=== PATIENT | male | born 1945 | race Caucasian/White ===

== ENCOUNTER 2018-01-18 07:33 | Day surgery (SDC) | payer MEDICARE, MEDICAID ==
[2018-01-18] MEDS ORDERED: GLUCAGON,HUMAN RECOMB 1 MG INJ IV ONE (08:46)
--- NOTE | 2018-01-18 08:50 | ER Document Report ---
ED ENT - General Chief Complaint: Difficulty Swallowing Stated Complaint: THROAT PAIN Time Seen by Provider: 01/18/18 08:05 Notes: This is a 72-year-old male that presents to the emergency department for evaluation of food sensation. Patient states that he was eating a turkey stick last night. Has a piece of meat stuck in his throat. Cannot seem to eat or drink anything. Nothing makes it better or worse. Had never had this happen before. TRAVEL OUTSIDE OF THE [place] IN LAST 30 DAYS: No - HPI Onset: Yesterday Onset/Duration: Gradual Quality of pain: Achy Severity: Moderate Pain Level: 2 - Related Data Allergies/Adverse Reactions: No Known Allergies Allergy (Verified 01/18/18 07:37) Past Medical History - General Information source: Patient - Social History Smoking Status: Former Smoker Cigarette use (# per day): No Frequency of alcohol use: Occasional Drug Abuse: Marijuana Lives with: Family Family History: Reviewed & Not Pertinent Patient has suicidal ideation: No Patient has homicidal ideation: No - Past Medical History Cardiac Medical History: Reports: Hx Hypercholesterolemia, Hx Hypertension Pulmonary Medical History: Reports: Hx Asthma, Hx COPD Renal/ Medical History: Denies: Hx Peritoneal Dialysis Review of Systems - Review of Systems Notes: Constitutional: denies: Chills, Diaphoresis, Fever, Malaise, Weakness EENT: denies: Eye discharge, Blurred vision, Tearing, Double vision, Nose congestion, Nose discharge, Throat swelling, Mouth pain. Does complain of food sensation stuck in his throat. Cardiovascular: denies: Palpitations, Heart racing, Orthopnea, Dyspnea, Chest pain Respiratory: denies: Cough, Hurts to breathe, Wheezing, Shortness of breath Gastrointestinal: denies: Abdominal pain, Diarrhea, Nausea, Vomiting, Black stools, bright red blood in stool Genitourinary: denies: Burning, Dysuria, Discharge, Frequency, Flank pain, Hematuria Musculoskeletal: denies: Joint pain, Joint swelling, Muscle pain, Muscle stiffness, back pain Hematologic/Lymphatic: denies: Anemia, Easy bleeding, Easy bruising, Blood clots Neurological/Psychological: denies: Confusion, Dementia, Depression, Loss of consciousness Skin: No lesions, no masses, no skin breakdown, no abscesses Physical Exam - Vital signs Vitals: Temp Pulse Resp BP Pulse Ox 97.8 F 91 14 166/95 H 98 01/18/18 07:38 01/18/18 07:38 01/18/18 07:38 01/18/18 07:38 01/18/18 07:38 Interpretation: Normal - General General appearance: Appears well, Alert - HEENT Head: Normocephalic, Atraumatic Eyes: Normal Pupils: PERRL - Respiratory Respiratory status: No respiratory distress Chest status: Nontender Breath sounds: Normal Chest palpation: Normal - Cardiovascular Rhythm: Regular Heart sounds: Normal auscultation Murmur: No - Abdominal Inspection: Normal Distension: No distension Bowel sounds: Normal Tenderness: Nontender Organomegaly: No organomegaly - Back Back: Normal, Nontender - Extremities General upper extremity: Normal inspection, Nontender, Normal color, Normal ROM , Normal temperature General lower extremity: Normal inspection, Nontender, Normal color, Normal ROM , Normal temperature, Normal weight bearing. No: Obey's sign - Neurological Neuro grossly intact: Yes Cognition: Normal Orientation: AAOx4 [place] Coma Scale Eye Opening: Spontaneous [place] Coma Scale Verbal: Oriented [place] Coma Scale Motor: Obeys Commands Codey Coma Scale Total: 15 Speech: Normal Motor strength normal: LUE, RUE, LLE, RLE Sensory: Normal - Psychological Associated symptoms: Normal affect, Normal mood - Skin Skin Temperature: Warm Skin Moisture: Dry Skin Color: Normal Course - Re-evaluation Re-evalutation: 01/18/18 08:49 At this time will get chest x-ray. Will give IV glucagon to see if this helps. Anticipate it will not. Will then call surgery for possible endoscopy. 01/18/18 09:50 No results from glucagon. Unable to swallow. Will consult with GI. 01/18/18 09:52 Dr. Yap with surgery has been consulted. He will evaluate patient. 01/18/18 11:48 01/18/18 12:02 Patient to endoscopy suite at this time - Vital Signs Vital signs: Temp Pulse Resp BP Pulse Ox 97.8 F 98 20 194/110 H 98 01/18/18 07:38 01/18/18 09:36 01/18/18 09:36 01/18/18 09:36 01/18/18 09:36 Discharge - Discharge Clinical Impression: Esophageal obstruction due to food impaction Condition: Good Unit Admitted: OR Instructions: Esophageal Foreign Object Removal ([facility]) Referrals: ELSA YAP MD [ACTIVE STAFF] - Follow up as needed
--- NOTE | 2018-01-18 09:53 | RADIOLOGY REPORT (SQ) ---
EXAM DESCRIPTION: CHEST 2 VIEWS COMPLETED DATE/TIME: 01/18/2018 8:57 am REASON FOR STUDY: food stuck in esophagus COMPARISON: None. EXAM PARAMETERS: NUMBER OF VIEWS: two views TECHNIQUE: Digital Frontal and Lateral radiographic views of the chest acquired. RADIATION DOSE: NA LIMITATIONS: none FINDINGS: LUNGS AND PLEURA: No opacities, masses or pneumothorax. No pleural effusion. MEDIASTINUM AND HILAR STRUCTURES: No masses or contour abnormalities. HEART AND VASCULAR STRUCTURES: Heart normal size. No evidence for failure. BONES: No acute findings. HARDWARE: None in the chest. OTHER: No other significant finding. IMPRESSION: No evidence of acute intrathoracic process. No radiopaque foreign body. TECHNICAL DOCUMENTATION: JOB ID: [id number] [employer]- All Rights Reserved Reading location - IP/workstation name: [email or web address]
[2018-01-18] MEDS ORDERED: ONDANSETRON HCL INJ/PF 4 MG/2 ML SDV ONE (12:11)
[2018-01-18] MEDS ORDERED: DIPHENHYDRAMINE HCL 50 MG/ML VIAL ONE (12:11)
[2018-01-18] MEDS ORDERED: NALOXONE HCL INJ/PF 0.4 MG/1 ML SDV ONE (12:12)
[2018-01-18] MEDS ORDERED: GLUCAGON,HUMAN RECOMB 1 MG INJ ONE (12:12)
[2018-01-18] MEDS ORDERED: EPINEPHRINE INJ 1 MG/10 ML DISP.SYRIN ONE (12:12)
[2018-01-18] MEDS ORDERED: FLUMAZENIL INJ 0.5 MG/5 ML VIAL ONE (12:12)
--- NOTE | 2018-01-18 12:39 | PDOC CONSULTATION ---
Consultation Consult Date: 01/18/18 Attending physician:: ELSA YAP Consult reason:: possible food bolus impaction, dysphagia History of Present Illness History of Present Illness: TAMMY ABREU is a 72 year old male patient presented to ED, over night had attempted to eat smoked turkey has been having difficulty with dysphagia and managing secretions since then attempted glucagon in the ED, has not helped patient denies any chest pain chest X ray negative called by ED physician will need EGD Past Medical History Cardiac Medical History: Reports: Hyperlipidema, Hypertension Pulmonary Medical History: Reports: Asthma, Chronic Obstructive Pulmonary Disease (COPD) Social History Lives with: Family Smoking Status: Former Smoker Family History Family History: Reviewed & Not Pertinent Parental Family History Reviewed: Yes Children Family History Reviewed: Unknown Sibling(s) Family History Reviewed.: Unknown Medication/Allergy Allergies/Adverse Reactions: No Known Allergies Allergy (Verified 01/18/18 07:37) Review of Systems Constitutional: ABSENT: fever(s), headache(s), night sweats, weakness Eyes: ABSENT: visual disturbances Nose, Mouth, and Throat: ABSENT: mouth pain, sore throat Cardiovascular: ABSENT: edema, orthropnea Respiratory: ABSENT: dyspnea, hemoptysis Gastrointestinal: PRESENT: dysphagia. ABSENT: diarrhea, melena Genitourinary: ABSENT: dysuria, hematuria Musculoskeletal: ABSENT: muscle weakness Integumentary: ABSENT: pruritus Neurological: ABSENT: syncope, tingling, tremor(s), vertigo Endocrine: ABSENT: polydipsia, polyphagia, polyuria Hematologic/Lymphatic: ABSENT: easy bruising Physical Exam Vital Signs: Temp Pulse Resp BP Pulse Ox 98.3 F 81 16 166/92 H 97 01/18/18 12:04 01/18/18 12:04 01/18/18 12:04 01/18/18 12:04 01/18/18 12:04 Intake & Output 01/17/18 01/18/18 01/19/18 06:59 06:59 06:59 Weight 67.7 kg General appearance: PRESENT: mild distress, well-developed, well-nourished Head exam: PRESENT: atraumatic, normocephalic Eye exam: PRESENT: EOMI, PERRLA. ABSENT: nystagmus, scleral icterus Mouth exam: PRESENT: moist, neck supple Throat exam: ABSENT: tonsillar exudate, tonsillogmegaly Neck exam: ABSENT: meningismus, tenderness, thyromegaly Cardiovascular exam: PRESENT: RRR, +S1, +S2 GI/Abdominal exam: PRESENT: soft. ABSENT: rebound, rigid, tenderness Extremities exam: ABSENT: joint swelling Musculoskeletal exam: PRESENT: full ROM Neurological exam: PRESENT: oriented to time, oriented to situation, CN II-XII grossly intact Focused psych exam: ABSENT: restlessness Skin exam: PRESENT: normal color. ABSENT: mottled, pallor, petechiae, urticaria , vesicles Results Impressions: Chest X-Ray 01/18/18 08:45 IMPRESSION: No evidence of acute intrathoracic process. No radiopaque foreign body. Assessment & Plan - Diagnosis (1) Esophageal obstruction due to food impaction Plan: will need EGD to remove Risks, benefits and alternatives are discussed with the patient in detail further recommendations to follow etiology ? stricture vs esophageal lesion patient is willing to proceed - Time Time Spent: 50 to 70 Minutes
[2018-01-18] MEDS: MIDAZOLAM 2 MG/2 ML INJ ONE ×2 (12:52→12:56)
[2018-01-18] MEDS: FENTANYL CITRATE INJ/PF 100 MCG/2 ML AMPUL ONE ×3 (12:54→13:00)
--- NOTE | 2018-01-18 13:15 | Operative Report ---
Operative Report DATE OF SURGERY: 01/18/18 Operative Report: The risks benefits and alternatives of the procedure explained to the patient in detail and informed consent is obtained.A GIF Olympus video scope was inserted into the patient's mouth and hypopharynx, the esophagus is identified intubated and insufflated, the scope was then advanced through the esophagus stomach and duodenum, retroflexion maneuver is done the esophagus stomach and first and second portions of the duodenum examined PREOPERATIVE DIAGNOSIS: Food bolus impaction POSTOPERATIVE DIAGNOSIS: Foreign body removed from the esophagus. Gastritis status post biopsy. Duodenal ulcers. Biopsies taken to rule out for Helicobacter pylori OPERATION: EGD with food bolus removal. EGD with biopsy SURGEON: ELSA YAP ANESTHESIA: Moderate Sedation - 4 mg of Versed, 100 mcg of fentanyl. Conscious sedation monitoring time 30 minutes. TISSUE REMOVED OR ALTERED: As noted above COMPLICATIONS: None. ESTIMATED BLOOD LOSS: None. INTRAOPERATIVE FINDINGS: As noted above PROCEDURE: Patient tolerated the procedure well. No immediate postprocedure complications are noted. Patient discharged in good condition. Discharge date 01/18/2018. Discharge diet: Regular. Discharge activity: Regular. 2-3-week follow-up to discuss findings. Will need follow-up upper endoscopy in a week or 2 to fully examine the distal EG junction. Given the fact that the food bolus has been there since last night there is some obvious erythema and inflammation will need to evaluate for possible stricture versus Schatzki's ring
[2018-01-18 14:08] VITALS: BP 159/104
== END 2018-01-18 14:20 | disposition home or self-care (01) ==
LOC: ER 07:33 → ASU 12:37
PROVIDERS: ATTEND Internal Medicine Gastroenterology
DX: T18.128A Food in esophagus causing other injury, initial encounter (principal); X58.XXXA Exposure to other specified factors, initial encounter; K29.50 Unspecified chronic gastritis without bleeding; B96.81 Helicobacter pylori [H. pylori] as the cause of diseases classified elsewhere; K22.2 Esophageal obstruction; K26.9 Duodenal ulcer, unspecified as acute or chronic, without hemorrhage or perforation; E78.5 Hyperlipidemia, unspecified; F12.10 Cannabis abuse, uncomplicated; E78.00 Pure hypercholesterolemia, unspecified; I10 Essential (primary) hypertension; J44.9 Chronic obstructive pulmonary disease, unspecified; Z87.891 Personal history of nicotine dependence
CPT/HCPCS: 99285; 96374; 43239; 43247; 82962; 88342 ×2; 88305 ×2; 71046; J2250; J3010; J1610; J0171; J1200; J2310; J2405; J3490

== ENCOUNTER 2018-12-08 11:57 | Inpatient (IN) | payer MEDICARE, MEDICAID ==
[2018-12-08] MEDS ORDERED: ASPIRIN 81 MG TABLET, CHEWABLE PO ONE (12:23)
--- NOTE | 2018-12-08 12:25 | ER Document Report ---
ED Medical Screen (RME) - General Chief Complaint: Chest Pain Stated Complaint: CHEST PAIN Time Seen by Provider: 12/08/18 12:21 Mode of Arrival: Wheelchair Information source: Patient Notes: Patient presents with left-sided chest pain that radiates to his back for the past week. Pain worsened today which prompted his visit. Patient has had shortness of breath for several days with nausea and vomiting. Patient does report a history of hypertension. I have greeted and performed a rapid initial assessment of this patient. A comprehensive ED assessment and evaluation of the patient, analysis of test results and completion of the medical decision making process will be conducted by additional ED providers. TRAVEL OUTSIDE OF THE [place] IN LAST 30 DAYS: No - Related Data Allergies/Adverse Reactions: No Known Allergies Allergy (Verified 01/18/18 07:37) Past Medical History - Past Medical History Cardiac Medical History: Reports: Hx Hypercholesterolemia, Hx Hypertension Pulmonary Medical History: Reports: Hx Asthma, Hx COPD Neurological Medical History: Denies: Hx Seizures Renal/ Medical History: Denies: Hx Peritoneal Dialysis Physical Exam - Vital signs Vitals: Temp Pulse Resp BP Pulse Ox 98.2 F 92 18 144/93 H 94 12/08/18 12:10 12/08/18 12:10 12/08/18 12:10 12/08/18 12:10 12/08/18 12:10 - Respiratory Respiratory status: No respiratory distress Breath sounds: Nonproductive cough Chest palpation: Normal Course - Vital Signs Vital signs: Temp Pulse Resp BP Pulse Ox 98.2 F 92 18 144/93 H 94 12/08/18 12:10 12/08/18 12:10 12/08/18 12:10 12/08/18 12:10 12/08/18 12:10
--- NOTE | 2018-12-08 12:49 | EKG REPORT ---
SEVERITY:- ABNORMAL ECG - WANDERING PACEMAKER ATRIAL PREMATURE COMPLEXES PROBABLE LEFT ATRIAL ABNORMALITY LATERAL INFARCT, AGE INDETERMINATE ABNORMAL T, CONSIDER ISCHEMIA, ANTERIOR LEADS PROLONGED QT INTERVAL : Confirmed by: Garrison Argueta MD 08-Dec-2018 12:48:35
[2018-12-08 12:54] LABS: ABSOLUTE BASOPHILS # (AUTO) 0.1 10^3/uL (0.0-0.2); ABSOLUTE LYMPHOCYTES (AUTO) 1.5 10^3/uL (0.5-4.7); ABSOLUTE MONOCYTES (AUTO) 0.6 10^3/uL (0.1-1.4); ABSOLUTE NEUT (AUTO) 4.2 10^3/uL (1.7-8.2); BASOPHILS % (AUTO) 1.1 % (0-2); EOSINOPHILS % (AUTO) 0.2 % (0-6); HEMATOCRIT 38.8 % (37.9-51.0); LYMPHOCYTES % (AUTO) 22.8 % (13-45); MEAN CORPUSCULAR HEMOGLOBIN 30.2 pg (27.0-33.4); MEAN CORPUSCULAR HGB CONC 33.6 g/dL (32.0-36.0); MEAN CORPUSCULAR VOLUME 90 fl (80-97); MONOCYTES % (AUTO) 9.3 % (3-13); PLATELET COUNT 195 10^3/uL (150-450); RED BLOOD COUNT 4.32 10^6/uL (4.35-5.55); RED CELL DISTRIBUTION WIDTH 14.5 % (11.5-14.0); SEGMENTED NEUTROPHILS % (AUTO) 66.6 % (42-78); TOTAL CELLS COUNTED % (AUTO) 100 %; WHITE BLOOD COUNT 6.4 10^3/uL (4.0-10.5)
[2018-12-08 13:11] LABS: INTERNATIONAL RATION (INR) 1.12; PROTHROMBIN TIME 14.5 SEC (11.4-15.4)
[2018-12-08 13:12] LABS: PARTIAL THROMBOPLASTIN TIME 33.4 SEC (23.5-35.8)
[2018-12-08 13:13] LABS: ALBUMIN 3.7 g/dL (3.5-5.0); ALKALINE PHOSPHATASE 74 U/L (38-126); ANION GAP 10 (5-19); ASPARTATE AMINO TRANSFERASE 18 U/L (17-59); BILIRUBIN,DIRECT 0.3 mg/dL (0.0-0.4); BILIRUBIN,TOTAL 0.4 mg/dL (0.2-1.3); BLOOD UREA NITROGEN 13 mg/dL (7-20); CARBON DIOXIDE 27 mmol/L (22-30); CHLORIDE 107 mmol/L (98-107); GLUCOSE 130 mg/dL (75-110); POTASSIUM 3.5 mmol/L (3.6-5.0); TOTAL PROTEIN 6.7 g/dL (6.3-8.2)
--- NOTE | 2018-12-08 13:44 | ER Document Report ---
ED General - General Chief Complaint: Chest Pain Stated Complaint: CHEST PAIN Time Seen by Provider: 12/08/18 12:21 Mode of Arrival: Wheelchair Notes: Patient said that he has been having left shoulder pain for about the past week. It has been getting worse. He has had some productive cough, as well. It hurts his shoulder and back area when he coughs. In the last couple of days, patient has also developed some left chest pains. However, his primary complaint is of pain in the left mid shoulder region. Patient says he has been treated in the past for pneumonia when he has had similar feeling symptoms. Patient says that he is also had vomiting and diarrhea. Has not eaten for about 4 days until having a bowl of clam chowder yesterday. He has a history of COPD and is on home nebulizers, but not on home oxygen. Patient stopped smoking cigarettes about 25 years ago. No history of any heart disease. TRAVEL OUTSIDE OF THE [place] IN LAST 30 DAYS: No - Related Data Allergies/Adverse Reactions: No Known Allergies Allergy (Verified 01/18/18 07:37) Past Medical History - General Information source: Patient - Social History Smoking Status: Former Smoker - Stopped 25 years ago Cigarette use (# per day): No Frequency of alcohol use: None Drug Abuse: None Family History: Reviewed & Not Pertinent Patient has suicidal ideation: No Patient has homicidal ideation: No - Past Medical History Cardiac Medical History: Reports: Hx Hypercholesterolemia, Hx Hypertension - On no blood pressure medications because he says all of them drop his press Pulmonary Medical History: Reports: Hx Asthma, Hx COPD Neurological Medical History: Denies: Hx Seizures Past Surgical History: Reports: Hx Orthopedic Surgery - Left TKR Review of Systems - Review of Systems Notes: REVIEW OF SYSTEMS: CONSTITUTIONAL : Denies fever. EENT: Denies eye, ear, nose or mouth or throat pain or other symptoms. CARDIOVASCULAR: See HPI. RESPIRATORY: See HPI. GASTROINTESTINAL: Denies abdominal pain or nausea, vomiting, or diarrhea. GENITOURINARY: Denies difficulty or painful urinating, urinary frequency, blood in urine. MUSCULOSKELETAL: Denies back or neck pain. Denies joint pain or swelling. SKIN: Denies rash or skin lesions. NEUROLOGICAL: Denies LOC or altered mental status. Denies headache. Denies sensory loss or motor deficits. ALL OTHER SYSTEMS REVIEWED AND NEGATIVE. Physical Exam - Vital signs Vitals: Temp Pulse Resp BP Pulse Ox 98.2 F 92 18 144/93 H 94 12/08/18 12:10 12/08/18 12:10 12/08/18 12:10 12/08/18 12:10 12/08/18 12:10 Interpretation: Normal. No: Hypoxic, Febrile Notes: PHYSICAL EXAMINATION: GENERAL: Well-appearing, in no acute distress. HEAD: Atraumatic, normocephalic. EYES: Pupils equal round and reactive to light, extraocular movements intact. ENT: oropharynx clear without exudates. Moist mucous membranes. NECK: Normal range of motion, supple. LUNGS: Breath sounds clear and equal bilaterally. Scattered rhonchi bilate rally. No significant wheezes. No rales. HEART: Regular rate and rhythm without murmurs. ABDOMEN: Soft, nontender. No guarding or rebound. No masses. BACK: No tenderness throughout entire back. EXTREMITIES: Normal range of motion without pain. NEUROLOGICAL: Normal speech, normal gait. Normal sensory, motor, and reflex exams. Awake, alert, and oriented x3. PSYCH: Normal mood, normal affect. SKIN: Warm, dry, no rashes. Course - Re-evaluation Re-evalutation: 12/08/18 17:29 Patient remained stable throughout his stay in the department. Vital signs remained normal with exception of a transient drop in oxygen saturation to 87% on room air which I think was a communications error between the equipment and the patient. CTA scan of the lungs was ordered it showed no evidence of pulmonary embolism but extensive bilateral multifocal opacities consistent with extensive multifocal pneumonias. The worst of these is in the left upper back region, where the patient's pain is primarily centered. Rocephin 1 g IV has been ordered. Patient's EKG has some changes in the mid precordial's which looked to me to be secondary to LVH with inverted T's primarily. There is one J-point elevation of the ST segment in V2. There are no changes in the inferior limb leads. At the request of the hospitalist, discussed this aspect of the patient's findings with Dr. Raymundo, and he felt that the patient could be taken care of here at this hospital. The patient's troponin of 0.11, indeterminate, was also discussed wi Dr. Meraz he had no concerns about admitting the patient because of that troponin in the indeterminate area. - Vital Signs Vital signs: Temp Pulse Resp BP Pulse Ox 98.2 F 92 24 H 129/95 H 95 12/08/18 12:10 12/08/18 12:10 12/08/18 17:01 12/08/18 17:01 12/08/18 17:00 - Laboratory Result Diagrams: 12/08/18 12:43 12/08/18 12:43 Laboratory results interpreted by me: 12/08/18 12/08/18 12/08/18 12:43 12:43 12:43 RBC 4.32 L Hgb 13.0 L RDW 14.5 H D-Dimer 1.30 H Potassium 3.5 L Glucose 130 H - Diagnostic Test Radiology reviewed: Image reviewed, Reports reviewed - CT scan of the chest shows no pulmonary emboli, but patient has extensive bilateral multifocal infiltrates of pneumonia, primarily the left upper back region. Moderate right- sided pleural effusion. Cardiomegaly. Mediastinal lymph nodes. Radiology results interpreted by me: 12/08/18 17:34 Chest x-ray was read by radiologist as showing a right sided pneumonia. - EKG Interpretation by Me EKG shows normal: Sinus rhythm Rate: Normal Rhythm: NSR Voltage: Consistant with LVH Discharge - Discharge Clinical Impression: Multifocal pneumonia, Chest wall pain Condition: Stable Disposition: ADMITTED INPATIENT Admitting Provider: Katerina (Hospitalist) Unit Admitted: [facility]
--- NOTE | 2018-12-08 14:24 | RADIOLOGY REPORT (SQ) ---
EXAM DESCRIPTION: CHEST 2 VIEWS COMPLETED DATE/TIME: 12/08/2018 1:29 pm REASON FOR STUDY: cp COMPARISON: 01/18/2018 NUMBER OF VIEWS: Two views. TECHNIQUE: Frontal and lateral radiographic views of the chest acquired. LIMITATIONS: None. FINDINGS: LUNGS AND PLEURA: Right lower lobe airspace disease. Trace right pleural effusion. MEDIASTINUM AND HILAR STRUCTURES: No masses or contour abnormality. HEART AND VASCULAR STRUCTURES: Cardiac enlargement. Vascular congestion. BONES: No acute findings. HARDWARE: None in the chest. OTHER: No other significant finding. IMPRESSION: Right lower lobe pneumonia. Cannot exclude a component of congestive failure. Clinical correlation is needed. TECHNICAL DOCUMENTATION: JOB ID: [id number] [employer]- All Rights Reserved Reading location - IP/workstation name: [email or web address]
--- NOTE | 2018-12-08 15:40 | RADIOLOGY REPORT (SQ) ---
EXAM DESCRIPTION: CTA CHEST COMPLETED DATE/TIME: 12/08/2018 3:25 pm REASON FOR STUDY: Left posterior shoulder and left thoracic chest pa COMPARISON: Same day chest radiograph TECHNIQUE: CT scan of the chest performed using helical scanning technique with dynamic intravenous contrast injection. Images reviewed with lung, soft tissue and bone windows. Reconstructed coronal and sagittal MPR images reviewed. Additional 3 dimensional post-processing performed to develop Maximal Intensity Projection images (TN P). All images stored on PACS. All CT scanners at this facility use dose modulation, iterative reconstruction, and/or weight based d osing when appropriate to reduce radiation dose to as low as reasonably achievable (ALARA). [facility]: Dose Right [facility]: CareDose [facility]: Dose Right [facility]: Teradose 4D [facility]: [employer] CONTRAST TYPE AND DOSE: 54 mL Omnipaque 350 iodinated contrast IV Contrast bolus optimized for the pulmonary arteries. Not diagnostic for the aorta. RENAL FUNCTION: Creatinine = 1.12 RADIATION DOSE: CT Rad equipment meets quality standard of care and radiation dose reduction techniq ues were employed. CTDIvol: 3.3 - 14.8 mGy. DLP: 577 mGy-cm. . LIMITATIONS: None. FINDINGS: LUNGS AND PLEURA: There is extensive bilateral multifocal ground-glass opacity, most consp icuous in the left upper lobe. Moderate right, small left pleural effusions with associated atelecta sis or consolidation. AORTA AND GREAT VESSELS: No aneurysm. Contrast bolus not optimized for the aorta. HEART: No pericardial effusion. Cardiomegaly. Left coronary artery calcifications and/or stents. PULMONARY ARTERIES: No emboli visualized in the main pulmonary arteries or the segmental branches. HILAR AND MEDIASTINAL STRUCTURES: Nonspecific enlarged mediastinal lymph nodes. HARDWARE: None in the chest. UPPER ABDOMEN: No significant findings. Limited exam. THYROID AND OTHER SOFT TISSUES: No masses. No adenopathy. BONES: No acute or significant finding. 3D MIPS: Confirm above findings. OTHER: No other significant finding. IMPRESSION: 1. Negative examination for pulmonary embolism. 2. There is extensive bilateral multifocal ground-glass opacity, most conspicuous in the left upper l obe, concerning for multifocal infection. Asymmetric edema can also have this appearance. 3. Moderate right, small left pleural effusions with associated atelectasis or consolidation. 4. Nonspecific enlarged mediastinal lymph nodes, likely reactive. 5. Cardiomegaly. 6. Coronary artery disease. COMMENT: Quality ID # [id number]: Final reports with documentation of one or more dose reduction techniques (e.g., Automated exposure control, adjustment of the mA and/or kV according to patient size, use of iterative reconstruction technique) TECHNICAL DOCUMENTATION: JOB ID: [id number] [employer]- All Rights Reserved Reading location - IP/workstation name: [email or web address]
[2018-12-08] MEDS ORDERED: CEFTRIAXONE 1 GM/D5W RTU 1 GM/50 ML RTUPB IV ONE (16:50)
[2018-12-08] MEDS ORDERED: PROMETHAZINE HCL INJ 25 MG/1 ML VIAL IV PRN (17:50)
[2018-12-08] MEDS ORDERED: ACETAMINOPHEN 325 MG TABLET PO PRN (17:50)
[2018-12-08] MEDS ORDERED: TEMAZEPAM 15 MG CAPSULE PO PRN (17:50)
--- NOTE | 2018-12-08 17:50 | PDOC H&P ---
History of Present Illness History of Present Illness: TAMMY ABREU is a 73 year old male patient with past medical history of hypertension COPD, pneumonia presented with chief complaint of cough productive of greenish-yellow sputum and left shoulder and left scapula pain. Patient denied any fever chills palpitation or diaphoresis. The shoulder and scapular pain is precipitated by cough. No aggravating or relieving factors cameron ntified. For his COPD patient uses albuterol metered-dose inhaler. Patient does not have any nausea, vomiting, diarrhea or change in bowel habits. No urinary complaints. He denies any dizziness, headache, blurring of vision, diplopia or any seizure activity. He does not have any orthopnea, PND or functional or leg swelling. His blood works are unremarkable. His CT of the chest reported as negative for point embolism, there is extensive bilateral multifocal groundglass opacity, most conspicuous in the left upper lobe concerning for multifocal infection as bilateral pleural effusion which is market on the right and small on the left. Past Medical History Cardiac Medical History: Reports: Hyperlipidema, Hypertension - On no blood pressure medications because he says all of them drop his press Pulmonary Medical History: Reports: Asthma, Chronic Obstructive Pulmonary Disease (COPD) Neurological Medical History: Denies: Seizures Past Surgical History Past Surgical History: Reports: Orthopedic Surgery - Left TKR Social History Smoking Status: Former Smoker - Stopped 25 years ago Frequency of Alcohol Use: None Hx Recreational Drug Use: No - Advance Directive Resuscitation Status: Full Code Family History Family History: Reviewed & Not Pertinent Parental Family History Reviewed: Yes Children Family History Reviewed: Yes Sibling(s) Family History Reviewed.: Yes Medication/Allergy Home Medications: Albuterol Sulfate [Ventolin Hfa 8 gm Mdi (1 Mdi/ER Disp)] 1 puff IH PRN PRN 12/08/18 Gabapentin 1 tab PO QHS 12/08/18 Hydrocodone/Acetaminophen [Vicodin Es 7.5-300 mg Tablet] 1 tab PO TID 12/08/18 Quetiapine Fumarate [Seroquel] 1 tab PO QHS 12/08/18 Allergies/Adverse Reactions: No Known Allergies Allergy (Verified 01/18/18 07:37) Review of Systems Constitutional: ABSENT: chills, fever(s), headache(s), weight gain, weight loss Eyes: ABSENT: visual disturbances Ears: ABSENT: hearing changes Cardiovascular: ABSENT: chest pain, dyspnea on exertion, edema, orthropnea, palpitations Respiratory: PRESENT: cough, dyspnea Gastrointestinal: ABSENT: abdominal pain, constipation, diarrhea, hematemesis, hematochezia, nausea, vomiting Genitourinary: ABSENT: dysuria, hematuria Musculoskeletal: ABSENT: joint swelling Integumentary: ABSENT: rash, wounds Neurological: ABSENT: abnormal gait, abnormal speech, confusion, dizziness, focal weakness, syncope Psychiatric: ABSENT: anxiety, depression, homidical ideation, suicidal ideation Endocrine: ABSENT: cold intolerance, heat intolerance, polydipsia, polyuria Hematologic/Lymphatic: ABSENT: easy bleeding, easy bruising Physical Exam Vital Signs: Temp Pulse Resp BP Pulse Ox 98.2 F 92 24 H 129/95 H 95 12/08/18 12:10 12/08/18 12:10 12/08/18 17:01 12/08/18 17:01 12/08/18 17:00 Intake & Output 12/07/18 12/08/18 12/09/18 06:59 06:59 06:59 Weight 70.7 kg General appearance: PRESENT: mild distress Head exam: PRESENT: atraumatic Mouth exam: PRESENT: moist Neck exam: ABSENT: carotid bruit, JVD, lymphadenopathy, thyromegaly Respiratory exam: PRESENT: crackles, decreased breath sounds - Bilateral. ABSENT: rales, rhonchi, wheezes Cardiovascular exam: PRESENT: RRR. ABSENT: diastolic murmur, rubs, systolic murmur Results Laboratory Results: 12/08/18 12:43 12/08/18 12:43 12/08/18 12/08/18 12:43 12:43 WBC 6.4 RBC 4.32 L Hgb 13.0 L Hct 38.8 MCV 90 MCH 30.2 MCHC 33.6 RDW 14.5 H Plt Count 195 Seg Neutrophils % 66.6 Sodium 143.6 Potassium 3.5 L Chloride 107 Carbon Dioxide 27 Anion Gap 10 BUN 13 Creatinine 1.12 Est GFR ( Amer) > 60 Glucose 130 H Calcium 9.0 Total Bilirubin 0.4 AST 18 Alkaline Phosphatase 74 Total Protein 6.7 Albumin 3.7 12/08/18 12:43 Troponin I 0.110 Impressions: Chest X-Ray 12/08/18 12:23 IMPRESSION: Right lower lobe pneumonia. Cannot exclude a component of congestive failure. Clinical correlation is needed. Chest/Abdomen CTA 12/08/18 15:04 IMPRESSION: 1. Negative examination for pulmonary embolism. 2. There is extensive bilateral multifocal ground-glass opacity, most conspicuous in the left upper lobe, concerning for multifocal infection. Asymmetric edema can also have this appearance. 3. Moderate right, small left pleural effusions with associated atelectasis or consolidation. 4. Nonspecific enlarged mediastinal lymph nodes, likely reactive. 5. Cardiomegaly. 6. Coronary artery disease. Assessment and Plan - Diagnosis (1) Bilateral multifocal pneumonia Is this a current diagnosis for this admission?: Yes Plan: Patient has also bilateral pleural effusion right greater than left. It can be due to parapneumonic effusion. Patient is going to be started on IV Levaquin. (2) COPD exacerbation Is this a current diagnosis for this admission?: Yes Plan: Patient is a former smoker he quit 25 years ago he has been caring the diagnosis of COPD. He uses metered-dose albuterol inhaler to no avail. Patient is going to be started on supplemental oxygen, bronchodilators and Solu- Medrol. (3) Hypertension Qualifiers: Hypertension type: essential hypertension Qualified Code(s): I10 - Essential (primary) hypertension Is this a current diagnosis for this admission?: Yes Plan: Continue home medication (4) Hyperlipidemia Qualifiers: Hyperlipidemia type: unspecified Qualified Code(s): E78.5 - Hyperlipidemia, unspecified Is this a current diagnosis for this admission?: Yes Plan: Continue home medication - Inpatient Certification Medical Necessity: Need Close Monitoring Due to Risk of Patient Decompensation, Need for IV Antibiotics
[2018-12-08] MEDS: METHYLPREDNISOLONE INJ 40 MG/1 ML SDV IV SCH ×2 (18:44→21:45)
[2018-12-08] MEDS: ENOXAPARIN SODIUM INJ 40 MG/0.4 ML DISP.SYRIN SUBCUT SCH (18:45)
[2018-12-08] MEDS ORDERED: LEVOFLOXACIN 750 MG/D5W RTU 750 MG/150 ML RTUPB IV SCH (19:00)
--- NOTE | 2018-12-08 19:10 | EKG REPORT ---
SEVERITY:- ABNORMAL ECG - SINUS TACHYCARDIA PAIRED VENTRICULAR PREMATURE COMPLEXES PROBABLE LEFT ATRIAL ABNORMALITY NONSPECIFIC T ABNORMALITIES, LATERAL LEADS : Confirmed by: Garrison Argueta MD 08-Dec-2018 19:09:03
[2018-12-08] MEDS ORDERED: TIOTROPIUM BROMIDE DPI 5 CAP/KIT (18 MCG/CAP) IH ONE (19:30)
[2018-12-08] MEDS: IPRATROPIUM/ALBUTEROL 0.5-2.5 MG/3 ML AMPUL NEB SCH (19:48)
[2018-12-08] MEDS: FAMOTIDINE 20 MG TABLET PO SCH (21:43)
[2018-12-09] MEDS: IPRATROPIUM/ALBUTEROL 0.5-2.5 MG/3 ML AMPUL NEB SCH ×2 (01:40→07:58)
[2018-12-09 05:36] LABS: HEMATOCRIT 38.4 % (37.9-51.0); MEAN CORPUSCULAR HEMOGLOBIN 30.3 pg (27.0-33.4); MEAN CORPUSCULAR HGB CONC 33.9 g/dL (32.0-36.0); MEAN CORPUSCULAR VOLUME 90 fl (80-97); PLATELET COUNT 201 10^3/uL (150-450); RED BLOOD COUNT 4.29 10^6/uL (4.35-5.55); RED CELL DISTRIBUTION WIDTH 14.3 % (11.5-14.0); WHITE BLOOD COUNT 5.8 10^3/uL (4.0-10.5)
[2018-12-09 06:03] LABS: ANION GAP 13 (5-19); BLOOD UREA NITROGEN 15 mg/dL (7-20); CALCIUM 9.3 mg/dL (8.4-10.2); CARBON DIOXIDE 22 mmol/L (22-30); CHLORIDE 107 mmol/L (98-107); GLUCOSE 168 mg/dL (75-110)
[2018-12-09] MEDS: METHYLPREDNISOLONE INJ 40 MG/1 ML SDV IV SCH (06:36)
[2018-12-09] MEDS ORDERED: HYDROCODONE/ACETAMINOPHEN 5-325 MG TABLET PO PRN (08:16)
[2018-12-09 08:51] VITALS: BP 138/99
[2018-12-09] MEDS ORDERED: TIOTROPIUM BROMIDE DPI 5 CAP/KIT (18 MCG/CAP) IH SCH (10:00)
[2018-12-09] MEDS ORDERED: DOCUSATE SODIUM 100 MG CAPSULE PO SCH (10:00)
[2018-12-09] MEDS ORDERED: (PENDING PHARMACY ID) (Fluticasone/Salmeterol 1 INH) IH SCH (10:00)
[2018-12-09] MEDS ORDERED: (PENDING PHARMACY ID) (Esomeprazole Mag Trihydrate [Nexium] 40 MG) PO SCH (10:00)
[2018-12-09] MEDS: FAMOTIDINE 20 MG TABLET PO SCH (10:00)
[2018-12-09] MEDS: ENOXAPARIN SODIUM INJ 40 MG/0.4 ML DISP.SYRIN SUBCUT SCH (10:01)
[2018-12-09] MEDS ORDERED: PANTOPRAZOLE SODIUM 40 MG TABLET.DR PO SCH (11:00)
--- NOTE | 2018-12-09 11:08 | PDOC PROGRESS REPORT ---
Subjective Progress Note for:: 12/09/18 Subjective:: TAMMY ABREU is a 73 year old male patient with past medical history of hypertension COPD, pneumonia presented with chief complaint of cough productive of greenish-yellow sputum and left shoulder and left scapula pain. Patient denied any fever chills palpitation or diaphoresis. The shoulder and scapular pain is precipitated by cough. No aggravating or relieving factors identified. For his COPD patient uses albuterol metered-dose inhaler. Patient does not have any nausea, vomiting, diarrhea or change in bowel habits. No urinary complaints. He denies any dizziness, headache, blurring of vision, diplopia or any seizure activity. He does not have any orthopnea, PND or functional or leg swelling. His blood works are unremarkable. His CT of the chest reported as negative for point embolism, there is extensive bilateral multifocal groundglass opacity, most conspicuous in the left upper lobe concerning for multifocal infection as bilateral pleural effusion which is market on the right and small on the left. 12/09/2018: Patient seen and examined while he is propped up in bed. He is awake alert oriented. He reported his shortness of breath is mildly improved. His blood work and medication reviewed and reconciled. Reason For Visit: BILATERAL MULTIFOCAL PNEUMONIA Physical Exam Vital Signs: Temp Pulse Resp BP Pulse Ox 97.5 F 104 H 18 138/99 H 87 L 12/09/18 07:37 12/09/18 08:01 12/09/18 08:01 12/09/18 07:37 12/09/18 08:01 Intake & Output 12/08/18 12/09/18 12/10/18 06:59 06:59 06:59 Intake Total 300 Output Total 250 Balance 50 Weight 71.9 kg General appearance: PRESENT: mild distress Head exam: PRESENT: atraumatic Eye exam: PRESENT: conjunctiva pink Mouth exam: PRESENT: moist, tongue midline Neck exam: ABSENT: carotid bruit, JVD, lymphadenopathy, thyromegaly Respiratory exam: PRESENT: crackles - Bilateral, wheezes Cardiovascular exam: PRESENT: RRR. ABSENT: diastolic murmur, rubs, systolic murmur GI/Abdominal exam: PRESENT: normal bowel sounds, soft. ABSENT: distended, guarding, mass, organolmegaly, rebound, tenderness Neurological exam: PRESENT: alert, awake, oriented to person, oriented to place, oriented to time, oriented to situation. ABSENT: motor sensory deficit Psychiatric exam: PRESENT: normal mood Results Laboratory Results: 12/09/18 05:22 12/09/18 05:22 12/08/18 12/08/18 12/09/18 12:43 12:43 05:22 WBC 6.4 5.8 RBC 4.32 L 4.29 L Hgb 13.0 L 13.0 L Hct 38.8 38.4 MCV 90 90 MCH 30.2 30.3 MCHC 33.6 33.9 RDW 14.5 H 14.3 H Plt Count 195 201 Seg Neutrophils % 66.6 Sodium 143.6 Potassium 3.5 L Chloride 107 Carbon Dioxide 27 Anion Gap 10 BUN 13 Creatinine 1.12 Est GFR ( Amer) > 60 Glucose 130 H Calcium 9.0 Total Bilirubin 0.4 AST 18 Alkaline Phosphatase 74 Total Protein 6.7 Albumin 3.7 12/09/18 05:22 WBC RBC Hgb Hct MCV MCH MCHC RDW Plt Count Seg Neutrophils % Sodium 141.7 Potassium 4.0 Chloride 107 Carbon Dioxide 22 Anion Gap 13 BUN 15 Creatinine 1.15 Est GFR ( Amer) > 60 Glucose 168 H Calcium 9.3 Total Bilirubin AST Alkaline Phosphatase Total Protein Albumin 12/08/18 12:43 Troponin I 0.110 Impressions: Chest X-Ray 12/08/18 12:23 IMPRESSION: Right lower lobe pneumonia. Cannot exclude a component of congestive failure. Clinical correlation is needed. Chest/Abdomen CTA 12/08/18 15:04 IMPRESSION: 1. Negative examination for pulmonary embolism. 2. There is extensive bilateral multifocal ground-glass opacity, most conspicuous in the left upper lobe, concerning for multifocal infection. Asymmetric edema can also have this appearance. 3. Moderate right, small left pleural effusions with associated atelectasis or consolidation. 4. Nonspecific enlarged mediastinal lymph nodes, likely reactive. 5. Cardiomegaly. 6. Coronary artery disease. Assessment and Plan - Diagnosis (1) Hypokalemia Is this a current diagnosis for this admission?: Yes Plan: Has resolved (2) Bilateral multifocal pneumonia Is this a current diagnosis for this admission?: Yes Plan: Continue current regimen (3) COPD exacerbation Is this a current diagnosis for this admission?: Yes Plan: Continue current regimen (4) Hypertension Qualifiers: Hypertension type: essential hypertension Qualified Code(s): I10 - Essential (primary) hypertension Is this a current diagnosis for this admission?: Yes Plan: Continue home medication (5) Hyperlipidemia Qualifiers: Hyperlipidemia type: unspecified Qualified Code(s): E78.5 - Hyperlipidemia, unspecified Is this a current diagnosis for this admission?: Yes Plan: Continue home medication
[2018-12-09] MEDS ORDERED: FLUTICASONE/VILANTEROL 200-25 MCG/DOSE IH SCH (12:00)
[2018-12-09] MEDS ORDERED: FLUTICASONE NASAL SPRAY 50 MCG/SPRY 120 SPRAY/16 GM NASL SCH (12:00)
--- NOTE | 2018-12-09 12:30 | Left Against Medical Advice ---
Against Medical Advice Admission Date/Time: 12/08/18 18:11 Primary Care Provider: Date of Patient Emigration: 12/09/18 - Diagnosis: (1) Hypokalemia Is this a current diagnosis for this admission?: Yes (2) Bilateral multifocal pneumonia Is this a current diagnosis for this admission?: Yes (3) COPD exacerbation Is this a current diagnosis for this admission?: Yes (4) Hypertension Is this a current diagnosis for this admission?: Yes (5) Hyperlipidemia Is this a current diagnosis for this admission?: Yes - Summary: Summary: TAMMY ABREU is a 73 year old male patient with past medical history of hypertension COPD, pneumonia presented with chief complaint of cough productive of greenish-yellow sputum and left shoulder and left scapula pain. Patient denied any fever chills palpitation or diaphoresis. The shoulder and scapular pain is precipitated by cough. No aggravating or relieving factors identified. For his COPD patient uses albuterol metered-dose inhaler. Patient does not have any nausea, vomiting, diarrhea or change in bowel habits. No urinary complaints. He denies any dizziness, headache, blurring of vision, diplopia or any seizure activity. He does not have any orthopnea, PND or functional or leg swelling. His blood works are unremarkable. His CT of the chest reported as negative for point embolism, there is extensive bilateral multifocal groundglass opacity, most conspicuous in the left upper lobe concerning for multifocal infection as bilateral pleural effusion which is market on the right and small on the left. 12/09/2018: Patient seen and examined while he is propped up in bed. He is awake alert oriented. He reported his shortness of breath is mildly improved. His blood work and medication reviewed and reconciled. 12/09/2018: After my round on this patient, the charge nurse paged me that the patient is about to sign out. I went to his room with the charge nurse and we tried to explain to him the risk of leaving AGAINST MEDICAL ADVICE including sepsis complication and . Despite our effort to keep him in the hospital, patient vehemently decided that he wanted to leave AGAINST MEDICAL ADVICE.
[2018-12-09] MEDS ORDERED: GABAPENTIN 300 MG CAPSULE PO SCH (14:00)
[2018-12-09] MEDS ORDERED: QUETIAPINE FUMARATE 100 MG TABLET PO SCH (22:00)
[2018-12-09] MEDS ORDERED: (PENDING PHARMACY ID) (Quetiapine Fumarate [Seroquel] 300 MG) PO SCH (22:00)
== END 2018-12-09 12:00 | disposition left against medical advice (07) | DRG 194 ==
LOC: ER 11:57 → EH 18:11 → 3W 12-09 00:18
PROVIDERS: ADMIT Internal Medicine; ATTEND Internal Medicine
DX: J18.9 Pneumonia, unspecified organism (principal); J44.0 Chronic obstructive pulmonary disease with (acute) lower respiratory infection; J44.1 Chronic obstructive pulmonary disease with (acute) exacerbation; E87.6 Hypokalemia; I10 Essential (primary) hypertension; E78.5 Hyperlipidemia, unspecified; Z96.652 Presence of left artificial knee joint; E78.00 Pure hypercholesterolemia, unspecified; Z87.891 Personal history of nicotine dependence; Z79.899 Other long term (current) drug therapy
CPT/HCPCS: 36415; 71046; 71275; 80048; 80053; 84484; 85025; 85027; 85379; 85610; 85730; 87040; 87077; 87186; 93005; 93010; 96365; 99285; J0696; J1650; J1956; J2920; J3490; J7620

== ENCOUNTER 2018-12-19 09:59 | Inpatient (IN) | payer MEDICARE, MEDICAID ==
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
[2018-12-19] MEDS ORDERED: ASPIRIN 81 MG TABLET, CHEWABLE PO ONE (12:08)
--- NOTE | 2018-12-19 12:51 | RADIOLOGY REPORT (SQ) ---
EXAM DESCRIPTION: CHEST 2 VIEWS COMPLETED DATE/TIME: 12/19/2018 12:29 pm REASON FOR STUDY: cough congestion short of breath pain COMPARISON: 12/19/2018 TECHNIQUE: Frontal and lateral radiographic views of the chest acquired. NUMBER OF VIEWS: Two view. LIMITATIONS: None. FINDINGS: LUNGS AND PLEURA: No pneumothorax. Mild interstitial prominence similar to the prior stud y. No consolidation or pleural effusion. MEDIASTINUM AND HILAR STRUCTURES: Stable. HEART AND VASCULAR STRUCTURES: Stable. BONES: No acute findings. HARDWARE: None in the chest. OTHER: No other significant finding. IMPRESSION: Mild interstitial prominence similar to the prior study. No consolidation or pleural ef fusion. TECHNICAL DOCUMENTATION: JOB ID: [id number] 2010 [employer] All Rights Reserved Reading location - IP/workstation name: [email or web address]
[2018-12-19 12:56] LABS: ABSOLUTE BASOPHILS # (AUTO) 0.1 10^3/uL (0.0-0.2); ABSOLUTE LYMPHOCYTES (AUTO) 1.6 10^3/uL (0.5-4.7); ABSOLUTE MONOCYTES (AUTO) 0.8 10^3/uL (0.1-1.4); BASOPHILS % (AUTO) 1.2 % (0-2); EOSINOPHILS % (AUTO) 0.1 % (0-6); HEMATOCRIT 38.9 % (37.9-51.0); HEMOGLOBIN 12.9 g/dL (13.5-17.0); LYMPHOCYTES % (AUTO) 18.9 % (13-45); MEAN CORPUSCULAR HEMOGLOBIN 29.4 pg (27.0-33.4); MEAN CORPUSCULAR HGB CONC 33.1 g/dL (32.0-36.0); MEAN CORPUSCULAR VOLUME 89 fl (80-97); MONOCYTES % (AUTO) 9.1 % (3-13); PLATELET COUNT 237 10^3/uL (150-450); RED BLOOD COUNT 4.39 10^6/uL (4.35-5.55); RED CELL DISTRIBUTION WIDTH 14.2 % (11.5-14.0); SEGMENTED NEUTROPHILS % (AUTO) 70.7 % (42-78); TOTAL CELLS COUNTED % (AUTO) 100 %; WHITE BLOOD COUNT 8.4 10^3/uL (4.0-10.5)
[2018-12-19 13:00] LABS: APPEARANCE,URINE CLEAR; BILIRUBIN,URINE NEGATIVE (NEGATIVE); GLUCOSE, URINE NEGATIVE (NEGATIVE); KETONES,URINE 20 mg/dL (NEGATIVE); LEUKOCYTE ESTERASE,URINE LARGE (NEGATIVE); NITRITE,URINE NEGATIVE (NEGATIVE); PROTEIN,URINE NEGATIVE (NEGATIVE); URINE SPECIFIC GRAVITY 1.023
[2018-12-19 13:02] LABS: COLOR,URINE YELLOW
[2018-12-19 13:21] LABS: ALBUMIN 3.9 g/dL (3.5-5.0); ALKALINE PHOSPHATASE 92 U/L (38-126); ANION GAP 11 (5-19); ASPARTATE AMINO TRANSFERASE 21 U/L (17-59); BILIRUBIN,DIRECT 0.2 mg/dL (0.0-0.4); BILIRUBIN,TOTAL 1.1 mg/dL (0.2-1.3); BLOOD UREA NITROGEN 14 mg/dL (7-20); CALCIUM 9.4 mg/dL (8.4-10.2); CARBON DIOXIDE 26 mmol/L (22-30); CHLORIDE 104 mmol/L (98-107); CREATINE KINASE 79 U/L (55-170); GLUCOSE 119 mg/dL (75-110)
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
--- NOTE | 2018-12-19 14:46 | EKG REPORT ---
SEVERITY:- ABNORMAL ECG - WANDERING PACEMAKER MULTIFORM VENTRICULAR PREMATURE COMPLEXES NONSPECIFIC REPOL ABNORMALITY, DIFFUSE LEADS BORDERLINE PROLONGED QT INTERVAL : Confirmed by: Alina Raymundo MD 19-Dec-2018 14:45:48
[2018-12-19] MEDS ORDERED: ONDANSETRON HCL INJ/PF 4 MG/2 ML SDV IV PRN (17:22)
[2018-12-19] MEDS ORDERED: ACETAMINOPHEN 325 MG TABLET PO PRN (17:22)
[2018-12-19] MEDS ORDERED: ATORVASTATIN CALCIUM 10 MG TABLET PO ONE (17:26)
--- NOTE | 2018-12-19 17:40 | PDOC H&P ---
History of Present Illness Admission Date/PCP: 12/19/2018 Patient complains of: And came in with questionable chest pains weakness decreased appetite for the last few days. History of Present Illness: TAMMY ABREU is a 73 year old male history of hypertension, COPD, depression and recent history of pneumonia came to the emergency room with complaints of squeezing-like chest pain for the last few days. Associated with insomnia and is also telling is nauseated unable to eat for the last 4 days. At the time of my examination he is chest pain-free. Initial troponin in the ER is 0.12 and s econd troponin is 0.129. EKG shows a wandering pacemaker with multiple PVCs. Medical consult was called for admission for abnormal troponins. Patient wants to be DNR/DNI. Past Medical History Cardiac Medical History: Reports: Hyperlipidema, Hypertension - On no blood pressure medications because he says all of them drop his press Pulmonary Medical History: Reports: Asthma, Chronic Obstructive Pulmonary Disease (COPD) Neurological Medical History: Denies: Seizures Renal/ Medical History: Reports: None Malignancy Medical History: Reports: None GI Medical History: Reports: None Musculoskeltal Medical History: Reports: None Psychiatric Medical History: Reports: None Denies: Depression Hematology: Reports: None Past Surgical History Past Surgical History: Reports: Orthopedic Surgery - Left TKR Social History Information Source: Patient Smoking Status: Former Smoker Frequency of Alcohol Use: None Hx Recreational Drug Use: No Drugs: Marijuana Hx Prescription Drug Abuse: No - Advance Directive Resuscitation Status: Do Not Resuscitate Family History Family History: Reviewed & Not Pertinent Parental Family History Reviewed: Yes - Family history of hypertension Children Family History Reviewed: Yes Sibling(s) Family History Reviewed.: Yes Medication/Allergy Home Medications: Albuterol Sulfate [Ventolin Hfa 8 gm Mdi (1 Mdi/ER Disp)] 2 puff IH Q6HP PRN 12/08/18 Esomeprazole Mag Trihydrate [Nexium] 40 mg PO DAILY 12/08/18 Fluticasone Propionate [Flonase Nasal [place] 50 Mcg/[place] 16 gm] 1 spray NASL Q12 12/08/18 Fluticasone/Salmeterol [Advair 250-50 Diskus 14 Dose/Diskus] 1 inh IH Q12 12/08/18 Gabapentin 600 mg PO TID 12/08/18 Hydrocodone/Acetaminophen [[place] 5-325 mg Tablet] 1 tab PO TIDP PRN 12/08/18 Quetiapine Fumarate [Seroquel] 300 mg PO QHS 12/08/18 Allergies/Adverse Reactions: No Known Allergies Allergy (Verified 12/19/18 10:00) Review of Systems Constitutional: PRESENT: fatigue, weakness. ABSENT: fever(s) Eyes: ABSENT: visual disturbances Ears: ABSENT: hearing changes Nose, Mouth, and Throat: ABSENT: sore throat Cardiovascular: PRESENT: chest pain. ABSENT: dyspnea on exertion, orthropnea, palpitations Respiratory: PRESENT: cough Gastrointestinal: PRESENT: nausea, other - Decreased appetite Musculoskeletal: ABSENT: joint swelling Neurological: ABSENT: abnormal gait, abnormal speech, confusion, dizziness, foc al weakness, syncope Psychiatric: ABSENT: anxiety, depression, homidical ideation, suicidal ideation Physical Exam Vital Signs: Temp Pulse Resp BP Pulse Ox 97.8 F 92 20 117/79 96 12/19/18 10:21 12/19/18 10:21 12/19/18 10:21 12/19/18 10:21 12/19/18 10:21 Intake & Output 12/18/18 12/19/18 12/20/18 06:59 06:59 06:59 Weight 69.5 kg General appearance: PRESENT: no acute distress, disheveled, thin Head exam: PRESENT: atraumatic Eye exam: PRESENT: PERRLA Mouth exam: PRESENT: dry mucosa Teeth exam: PRESENT: poor dentation Neck exam: ABSENT: carotid bruit, JVD, lymphadenopathy, thyromegaly Respiratory exam: PRESENT: decreased breath sounds Cardiovascular exam: PRESENT: systolic murmur, tachycardia GI/Abdominal exam: PRESENT: normal bowel sounds, soft. ABSENT: distended, guarding, mass, organolmegaly, rebound, tenderness Rectal exam: PRESENT: deferred Neurological exam: PRESENT: alert, awake, oriented to person, oriented to place, oriented to time, oriented to situation, CN II-XII grossly intact. ABSENT: motor sensory deficit Psychiatric exam: PRESENT: appropriate affect, normal mood. ABSENT: homicidal ideation, suicidal ideation Results Laboratory Results: 12/19/18 12:45 12/19/18 12:45 12/19/18 12/19/18 12/19/18 12:45 12:45 12:45 WBC 8.4 RBC 4.39 Hgb 12.9 L Hct 38.9 MCV 89 MCH 29.4 MCHC 33.1 RDW 14.2 H Plt Count 237 Seg Neutrophils % 70.7 Sodium 140.6 Potassium 4.0 Chloride 104 Carbon Dioxide 26 Anion Gap 11 BUN 14 Creatinine 1.11 Est GFR ( Amer) > 60 Glucose 119 H Lactic Acid Calcium 9.4 Total Bilirubin 1.1 AST 21 Alkaline Phosphatase 92 Total Protein 7.0 Albumin 3.9 Lipase 73.5 Urine Color YELLOW Urine Appearance CLEAR Urine pH 5.0 Ur Specific [place] 1.023 Urine Protein NEGATIVE Urine Glucose (UA) NEGATIVE Urine Ketones 20 H Urine Blood SMALL H Urine Nitrite NEGATIVE Ur Leukocyte Esterase LARGE H Urine WBC (Auto) 43 Urine RBC (Auto) 5 12/19/18 15:30 WBC RBC Hgb Hct MCV MCH MCHC RDW Plt Count Seg Neutrophils % Sodium Potassium Chloride Carbon Dioxide Anion Gap BUN Creatinine Est GFR ( Amer) Glucose Lactic Acid 1.4 Calcium Total Bilirubin AST Alkaline Phosphatase Total Protein Albumin Lipase Urine Color Urine Appearance Urine pH Ur Specific [place] Urine Protein Urine Glucose (UA) Urine Ketones Urine Blood Urine Nitrite Ur Leukocyte Esterase Urine WBC (Auto) Urine RBC (Auto) 12/19/18 12/19/18 12/19/18 12:45 12:45 12:45 Creatine Kinase 79 CK-MB (CK-2) 1.21 Troponin I 0.120 12/19/18 16:04 Creatine Kinase CK-MB (CK-2) Troponin I 0.129 Impressions: Chest X-Ray 12/19/18 12:07 IMPRESSION: Mild interstitial prominence similar to the prior study. No conso lidation or pleural effusion. Assessment and Plan - Diagnosis (1) Chest pain Is this a current diagnosis for this admission?: Yes Plan: 12/19/2018-patient came in with nonspecific complaints of chest pain. At the time of my examination he is chest pain-free. Initial troponin is 0.12 and second troponin is 0.129. EKG shows wandering pacemaker with multiple PVCs. Slightly elevated troponins may be secondary to underlying bronchitis. Patient was to be DNR/DNI. Started on aspirin, atorvastatin lipid panel was requested. Started on Lovenox prophylactic dose and GI prophylaxis. Patient does not want any cardiac intervention so cardiology consult was not requested. (2) Hypertension Qualifiers: Hypertension type: essential hypertension Qualified Code(s): I10 - Essential (primary) hypertension Is this a current diagnosis for this admission?: No Plan: 12/19/2018-patient given the history of hypertension her pressure today is 117/80. Stable. Plan is to closely monitor his blood pressure. At the moment patient is not on any antihypertensive medications at home. (3) COPD (chronic obstructive pulmonary disease) Is this a current diagnosis for this admission?: No Plan: 12/19/2018-patient has history of COPD quit smoking more than 25 years ago and uses inhalers at home. I am going to put him on Xopenex nebulization every 6 as needed. (4) Protein-energy malnutrition Is this a current diagnosis for this admission?: No Plan: 12/19/2018-patient been BMI is around 21 patient is thin and cachectic. Dietary consult is going to be recommended requested. (5) Nausea Is this a current diagnosis for this admission?: Yes Plan: 12/19/2018-patient is complaining of nausea denies any vomiting's diarrhea or constipation. We are going to start him on IV Zofran 4 mg every 4 PRN for nausea. - Time Time Spent with patient: 25-34 minutes Medications reviewed and adjusted accordingly: Yes Anticipated discharge: Home
--- NOTE | 2018-12-19 18:15 | RADIOLOGY REPORT (SQ) ---
EXAM DESCRIPTION: CT CHEST WITHOUT COMPLETED DATE/TIME: 12/19/2018 5:59 pm REASON FOR STUDY: shortness of breath COMPARISON: 12/08/2018 TECHNIQUE: CT scan performed of the chest without intravenous contrast. Images reviewed with lung, soft tissue and bone windows. Reconstructed coronal and sagittal MPR images reviewed. All images st ored on PACS. All CT scanners at this facility use dose modulation, iterative reconstruction, and/or weight based d osing when appropriate to reduce radiation dose to as low as reasonably achievable (ALARA). [facility]: Dose Right [facility]: CareDose [facility]: Dose Right [facility]: Teradose 4D [facility]: Smart [employer] RADIATION DOSE: CT Rad equipment meets quality standard of care and radiation dose reduction techniq ues were employed. CTDIvol: 7.1 mGy. DLP: 280 mGy-cm. mGy. LIMITATIONS: No technical limitations. FINDINGS: LUNGS AND PLEURA: Bilateral perihilar ground-glass opacification. Moderate right pleural effusion. Small left pleural effusion. Pneumatocoele in the right lower lobe. HILAR AND MEDIASTINAL STRUCTURES: There are some nonspecific mediastinal nodes. HEART AND VASCULAR STRUCTURES: Coronary atherosclerosis. Coronary stent. UPPER ABDOMEN: No significant findings. Limited exam. THYROID AND OTHER SOFT TISSUES: No masses. No adenopathy. BONES: No significant finding. HARDWARE: None in the chest. OTHER: No other significant findings. IMPRESSION: Increased bilateral perihilar ground-glass opacification: Pulmonary edema versus chroni c interstitial changes versus atypical infectious/ inflammatory process. Other findings as described . TECHNICAL DOCUMENTATION: JOB ID: [id number] Quality ID # [id number]: Final reports with documentation of one or more dose reduction techniques (e.g., Au tomated exposure control, adjustment of the mA and/or kV according to patient size, use of iterative reconstruction technique) 2010 [employer]- All Rights Reserved Reading location - IP/workstation name: [email or web address]
[2018-12-19 22:20] LABS: URINE AMPHETAMINES SCREEN NEGATIVE; URINE BARBITURATES SCREEN NEGATIVE; URINE BENZODIAZEPINES SCREEN NEGATIVE; URINE COCAINE SCREEN NEGATIVE; URINE METHADONE SCREEN NEGATIVE; URINE PHENCYCLIDINE SCREEN NEGATIVE
[2018-12-19 22:24] LABS: URINE MARIJUANA (THC) SCREEN UNCONFIRMED POSITIVE
[2018-12-19] MEDS: QUETIAPINE FUMARATE 100 MG TABLET PO SCH (22:31)
[2018-12-19 23:51] LABS: CREATINE KINASE MB 0.92 ng/mL (<4.55)
[2018-12-19 23:53] LABS: TROPONIN I 0.126 ng/mL
[2018-12-20 05:13] LABS: ABSOLUTE BASOPHILS # (AUTO) 0.1 10^3/uL (0.0-0.2); ABSOLUTE LYMPHOCYTES (AUTO) 2.2 10^3/uL (0.5-4.7); ABSOLUTE MONOCYTES (AUTO) 0.7 10^3/uL (0.1-1.4); ABSOLUTE NEUT (AUTO) 4.1 10^3/uL (1.7-8.2); EOSINOPHILS % (AUTO) 0.5 % (0-6); HEMATOCRIT 34.2 % (37.9-51.0); HEMOGLOBIN 11.3 g/dL (13.5-17.0); LYMPHOCYTES % (AUTO) 30.8 % (13-45); MEAN CORPUSCULAR HEMOGLOBIN 29.2 pg (27.0-33.4); MEAN CORPUSCULAR HGB CONC 33.1 g/dL (32.0-36.0); MEAN CORPUSCULAR VOLUME 88 fl (80-97); MONOCYTES % (AUTO) 10.2 % (3-13); PLATELET COUNT 176 10^3/uL (150-450); RED BLOOD COUNT 3.87 10^6/uL (4.35-5.55); RED CELL DISTRIBUTION WIDTH 14.1 % (11.5-14.0); SEGMENTED NEUTROPHILS % (AUTO) 57.5 % (42-78); TOTAL CELLS COUNTED % (AUTO) 100 %; WHITE BLOOD COUNT 7.1 10^3/uL (4.0-10.5)
[2018-12-20] MEDS: HYDROCODONE/ACETAMINOPHEN 5-325 MG TABLET PO PRN ×3 (05:24→21:33)
[2018-12-20] MEDS: PANTOPRAZOLE SODIUM 40 MG TABLET.DR PO SCH ×2 (05:24→16:45)
[2018-12-20 05:32] LABS: ALBUMIN 2.9 g/dL (3.5-5.0); ALKALINE PHOSPHATASE 74 U/L (38-126); ANION GAP 9 (5-19); ASPARTATE AMINO TRANSFERASE 23 U/L (17-59); BILIRUBIN,DIRECT 0.4 mg/dL (0.0-0.4); BILIRUBIN,TOTAL 0.7 mg/dL (0.2-1.3); BLOOD UREA NITROGEN 15 mg/dL (7-20); CALCIUM 8.5 mg/dL (8.4-10.2); CARBON DIOXIDE 25 mmol/L (22-30); CHLORIDE 108 mmol/L (98-107); CHOLESTEROL 178.59 mg/dL (0-200); CREATINE KINASE 54 U/L (55-170); GLUCOSE 102 mg/dL (75-110); POTASSIUM 3.6 mmol/L (3.6-5.0); TOTAL PROTEIN 5.3 g/dL (6.3-8.2); TRIGLYCERIDES 112 mg/dL (<150)
[2018-12-20 05:43] LABS: DIRECT LDL 134 mg/dL (<100)
[2018-12-20 05:44] LABS: CREATINE KINASE MB 0.89 ng/mL (<4.55); TROPONIN I 0.123 ng/mL
--- NOTE | 2018-12-20 08:16 | EKG REPORT ---
SEVERITY:- ABNORMAL ECG - SINUS TACHYCARDIA NONSPECIFIC REPOL ABNORMALITY, DIFFUSE LEADS BORDERLINE PROLONGED QT INTERVAL : Confirmed by: Alina Raymundo MD 20-Dec-2018 08:15:16
[2018-12-20] MEDS: ENOXAPARIN SODIUM INJ 40 MG/0.4 ML DISP.SYRIN SUBCUT SCH (09:12)
[2018-12-20] MEDS: ASPIRIN 325 MG TABLET PO SCH (09:12)
--- NOTE | 2018-12-20 19:02 | PDOC PROGRESS REPORT ---
Subjective Progress Note for:: 12/20/18 Subjective:: No adverse events overnight. No new complaints. Vital signs are stable. No chest pain or shortness of breath. Had discussion with him today because previously he said he did not want any cardiac intervention. Today he said he would be agreeable to doing a stress test and, if positive, a cardiac catheterization if necessary. Reason For Visit: CHEST PAIN Physical Exam Vital Signs: Temp Pulse Resp BP Pulse Ox 98.1 F 101 H 18 125/81 97 12/20/18 16:54 12/20/18 16:54 12/20/18 16:54 12/20/18 16:54 12/20/18 16:54 Intake & Output 12/19/18 12/20/18 12/21/18 06:59 06:59 06:59 Weight 64.2 kg General appearance: PRESENT: no acute distress, cooperative, disheveled, thin Respiratory exam: PRESENT: clear to auscultation lea, symmetrical, unlabored. ABSENT: accessory muscle use, chest wall tenderness, crackles, prolonged expiratory phas, rhonchi, tachypnea, wheezes Cardiovascular exam: PRESENT: RRR, +S1, +S2 Pulses: PRESENT: normal carotid pulses Vascular exam: PRESENT: normal capillary refill GI/Abdominal exam: PRESENT: normal bowel sounds, soft. ABSENT: distended, guarding, rebound, tenderness Extremities exam: ABSENT: clubbing, pedal edema Musculoskeletal exam: PRESENT: normal inspection. ABSENT: deformity Neurological exam: PRESENT: alert, awake, oriented to person, oriented to place, oriented to situation Psychiatric exam: PRESENT: appropriate affect, normal mood Skin exam: PRESENT: dry, warm Results Laboratory Results: 12/20/18 04:26 12/20/18 04:26 12/20/18 12/20/18 12/20/18 04:26 04:26 04:26 WBC 7.1 RBC 3.87 L Hgb 11.3 L Hct 34.2 L MCV 88 MCH 29.2 MCHC 33.1 RDW 14.1 H Plt Count 176 Seg Neutrophils % 57.5 Sodium 141.8 Potassium 3.6 Chloride 108 H Carbon Dioxide 25 Anion Gap 9 BUN 15 Creatinine 1.20 Est GFR ( Amer) > 60 Glucose 102 Calcium 8.5 Magnesium 2.3 Total Bilirubin 0.7 AST 23 Alkaline Phosphatase 74 Total Protein 5.3 L Albumin 2.9 L Triglycerides 112 Cholesterol 178.59 LDL Cholesterol Direct 134 H VLDL Cholesterol 22.0 HDL Cholesterol 35 L TSH 3.85 12/19/18 12/19/18 12/19/18 12:45 12:45 12:45 Creatine Kinase 79 CK-MB (CK-2) 1.21 Troponin I 0.120 12/19/18 12/19/18 12/19/18 16:04 16:04 16:04 Creatine Kinase 84 CK-MB (CK-2) 0.98 Troponin I 0.129 Cancelled 12/19/18 12/19/18 12/20/18 22:44 22:44 04:26 Creatine Kinase 68 54 L CK-MB (CK-2) 0.92 Troponin I 0.126 12/20/18 04:26 Creatine Kinase CK-MB (CK-2) 0.89 Troponin I 0.123 Impressions: Chest CT 12/19/18 00:00 IMPRESSION: Increased bilateral perihilar ground-glass opacification: Pulmonary edema versus chronic interstitial changes versus atypical infectious/ inflammatory process. Other findings as described. Chest X-Ray 12/19/18 12:07 IMPRESSION: Mild interstitial prominence similar to the prior study. No consolidation or pleural effusion. Assessment and Plan - Diagnosis (1) Chest pain Qualifiers: Chest pain type: unspecified Qualified Code(s): R07.9 - Chest pain, unspecified Is this a current diagnosis for this admission?: Yes Plan: Currently pain-free. He said his last cardiac evaluation was 12 or 13 years ago. He agreed to do a stress test today. I think this is reasonable given his risk factors. This is been ordered and will be done tomorrow. - Time Time Spent with patient: 15-24 minutes
[2018-12-20] MEDS: QUETIAPINE FUMARATE 100 MG TABLET PO SCH (21:33)
--- NOTE | 2018-12-20 21:58 | XCELERA REPORT ---
[address] [address] Transthoracic Echocardiogram Report Name: TAMMY ABREU Age: 73 yrs Gender: Male : 1945 Patient Status: Inpatient Patient Location: [place] [address]^A Study Date: 12/19/2018 08:04 PM Height: 71 in Weight: 153 lb BSA: 1.9 m2 Procedure: A two-dimensional transthoracic echocardiogram with color flow and Doppler was performed. The study was technically difficult with many images being suboptimal in quality. Reason For Study: chest pain History: CHEST PAIN. Ordering Physician: NHAN VICKERS Performed By: Jimena Plunkett Interpretation Summary The left ventricle is borderline dilated. There is normal left ventricular wall thickness. LV EF is 35% to 40% Left ventricular systolic function is moderately reduced. Doppler measurements suggest normal left ventricular diastolic function There is moderate global hypokinesis of the left ventricle. There is no thrombus. No ASD ,VSD , or PFO seen. The right atrium is normal. The left atrial size is normal. There is no evidence of mitral valve prolapse. There is no mitral valve stenosis. There is a severe amount of mitral regurgitation There is no aortic valve stenosis There is a mild amount of aortic regurgitation There is no tricuspid stenosis. There is a mild amount of tricuspid regurgitation There is moderate pulmonary hypertension by echo RVSP is 49 to 54 mm of Hg , with RA mean of 5 to 10. There is no pulmonic valvular stenosis. There is a mild amount of pulmonic regurgitation The inferior vena cava appeared normal and decreased > 50% with respiration (RAP 5-10 mmHg) The aortic root is normal size. There is no pericardial effusion. MMode/2D Measurements & Calculations RVDd: 2.5 cm LVIDd: 5.0 cm FS: 28.8 % Ao root diam: 3.1 cm IVSd: 1.1 cm LVIDs: 3.6 cm EDV(Teich): LVPWd: 1.1 cm 120.3 ml Ao root area: ESV(Teich): 7.6 cm2 53.9 ml LA dimension: EF(Teich): 55.1 % 3.8 cm LVLd ap4: 8.2 cm SV(MOD-sp4): EDV(MOD-sp4): 58.0 ml 149.0 ml LVLs ap4: 7.6 cm ESV(MOD-sp4): 91.0 ml EF(MOD-sp4): 38.9 % Doppler Measurements & Calculations MV E max rossy: MV dec time: Ao V2 max: AI max rossy: 110.1 cm/sec 0.15 sec 128.6 cm/sec 414.3 cm/sec MV A max rossy: Ao max PG: AI max P.7 mmHg 39.5 cm/sec 6.6 mmHg AI dec slope: MV E/A: 2.8 270.1 cm/sec2 AI P1/2t: 449.3 msec LV V1 max PG: MR max rossy: PA V2 max: PI end-d rossy: 2.7 mmHg 496.2 cm/sec 108.6 cm/sec 156.1 cm/sec LV V1 max: MR max P.5 mmHgPA max P.9 cm/sec 4.7 mmHg TR max rossy: AV P1/2t-pr_phl: 330.8 cm/sec 449.3 msec TR max P.8 mmHg Left Ventricle The left ventricle is borderline dilated. There is normal left ventricular wall thickness. LV EF is 35% to 40%. Left ventricular systolic function is moderately reduced. Doppler measurements suggest normal left ventricular diastolic function. There is moderate global hypokinesis of the left ventricle. There is no thrombus. No ASD ,VSD , or PFO seen. Right Ventricle The right ventricle is normal in size and function. Atria The right atrium is normal. The left atrial size is normal. Mitral Valve There is no evidence of mitral valve prolapse. There is no vegetation seen on the mitral valve. There is no mitral valve stenosis. There is a severe amount of mitral regurgitation. Aortic Valve There is no aortic valve stenosis. There is no LVOT obstruction. There is a mild amount of aortic regurgitation. Tricuspid Valve There is no tricuspid stenosis. There is a mild amount of tricuspid regurgitation. There is moderate pulmonary hypertension by echo. RVSP is 49 to 54 mm of Hg , with RA mean of 5 to 10. Pulmonic Valve There is no pulmonic valvular stenosis. There is a mild amount of pulmonic regurgitation. Great Vessels The aortic root is normal size. The inferior vena cava appeared normal and decreased > 50% with respiration (RAP 5-10 mmHg). Effusions There is no pericardial effusion. : NHAN VICKERS Lakshmi
[2018-12-20] MEDS ORDERED: METOPROLOL TARTRATE PF/INJ 5 MG/5 ML SDV IV ONE ×2 (22:56→23:00)
[2018-12-21 00:36] LABS: ANION GAP 7 (5-19); BLOOD UREA NITROGEN 17 mg/dL (7-20); CALCIUM 8.3 mg/dL (8.4-10.2); CARBON DIOXIDE 25 mmol/L (22-30); CHLORIDE 108 mmol/L (98-107); GLUCOSE 105 mg/dL (75-110); PHOSPHORUS 4.1 mg/dL (2.5-4.5); POTASSIUM 3.7 mmol/L (3.6-5.0)
[2018-12-21] MEDS: PANTOPRAZOLE SODIUM 40 MG TABLET.DR PO SCH ×2 (06:31→17:54)
--- NOTE | 2018-12-21 09:27 | EKG REPORT ---
SEVERITY:- ABNORMAL ECG - SINUS RHYTHM VENTRICULAR PREMATURE COMPLEX SINUS PAUSE/ARREST W/ SUPRAVENTRICULAR ESCAPE PROBABLE LATERAL INFARCT, AGE INDETERMINATE PROLONGED QT INTERVAL : Confirmed by: Alina Raymundo MD 21-Dec-2018 09:26:04
[2018-12-21] MEDS: ASPIRIN 325 MG TABLET PO SCH (09:47)
[2018-12-21] MEDS: ENOXAPARIN SODIUM INJ 40 MG/0.4 ML DISP.SYRIN SUBCUT SCH (09:47)
[2018-12-21] MEDS: HYDROCODONE/ACETAMINOPHEN 5-325 MG TABLET PO PRN (09:48)
[2018-12-21] MEDS ORDERED: DILTIAZEM HCL INJ 25 MG/5 ML VIAL ONE ×2 (09:58→13:17)
[2018-12-21] MEDS ORDERED: ESMOLOL HCL/SOD CL 2,500 MG/250 ML RTUINJ IV PRN (10:09)
[2018-12-21] MEDS ORDERED: DILTIAZEM HCL INJ 25 MG/5 ML VIAL IV ONE (11:00)
[2018-12-21] MEDS ORDERED: AMIODARONE HCL 150 MG in DEXTROSE 5%-WATER 100 ML IV ONE (13:00)
[2018-12-21] MEDS ORDERED: DEXTROSE 5%-WATER 500 ML with AMIODARONE HCL 900 MG IV PRN ×2 (13:00)
[2018-12-21] MEDS ORDERED: ENOXAPARIN SODIUM INJ 100 MG/1 ML DISP.SYRIN SUBCUT ONE (13:18)
--- NOTE | 2018-12-21 15:29 | CRITICAL CARE ADMISSION REPORT ---
HPI Date:: 12/21/18 Time:: 11:00 Reason for ICU Reason:: Rapid atrial fibrillation HPI: TAMMY ABREU is a 73 year old male history of hypertension, COPD, depression and recent history of pneumonia came to the emergency room with complaints of squeezing-like chest pain for the last few days. Associated with insomnia and is also telling is nauseated unable to eat for the last 4 days. At the time of my examination he is chest pain-free. Initial troponin in the ER is 0.12 and second troponin is 0.129. EKG shows a wandering pacemaker with multiple PVCs. Medical consult was called for admission for abnormal troponins. Patient wants to be DNR/DNI. 12/21 I was asked to acdcept thepatient to the ICU becuse he developed rapid Atrialfib in the setting of a planned stress test. The patient had developed acute shoprtness of breath a few nights ago which tiokka while to dissipate. Hsi ECG shows precordial changes consistent with LVH with strain and occasional PVCs His troponins were in the 0.125 range. He is not having chest poain presently. The patient has had a heart rate vacialting between 120 and 150 this AM. it appeared to be aAtrial Fib. the patient foes not recall being told he had atrial fib previously. He is maintaining his bp, cognet and calm. The patient is an ex-smoker and has alonghistory of poorly treated HTN. - Diagnosis/Plan (2) Chest pain Qualifiers: Chest pain type: unspecified Qualified Code(s): R07.9 - Chest pain, unspeci fied Past Medical History Cardiac Medical History: Reports: Hyperlipidema, Hypertension - On no blood pressure medications because he says all of them drop his press Pulmonary Medical History: Reports: Asthma, Chronic Obstructive Pulmonary Disease (COPD) Neurological Medical History: Denies: Seizures Renal/ Medical History: Reports: None Malignancy Medical History: Reports: None GI Medical History: Reports: None Musculoskeltal Medical History: Reports: None Psychiatric Medical History: Reports: None Denies: Depression Hematology: Reports: None Past Surgical History Past Surgical History: Reports: Orthopedic Surgery - Left TKR Social/Family History - Social History Smoking Status: Former Smoker Frequency of Alcohol Use: None Hx Recreational Drug Use: Yes Drugs: Marijuana Hx Prescription Drug Abuse: No - Medication/Allergies Home Medications: Albuterol Sulfate [Proair HFA Inhalation Aerosol 8.5 gm MDI] 2 puff IH Q6HP PRN 12/19/18 Gabapentin [Neurontin 300 mg Capsule] 300 mg PO QPM 12/19/18 Hydrocodone/Acetaminophen [[place]ena 7.5-325 mg Tablet] 1 tab PO Q8HP PRN 12/19/18 Quetiapine Fumarate [Seroquel] 300 mg PO QHS 12/19/18 Allergies/Adverse Reactions: No Known Allergies Allergy (Verified 12/19/18 10:00) Review of Systems Constitutional: ABSENT: anorexia, fatigue, headache(s), night sweats Cardiovascular: ABSENT: chest pain Respiratory: PRESENT: dyspnea. ABSENT: cough, sputum Gastrointestinal: ABSENT: abdominal pain, coffee ground emesis, diarrhea, melena Genitourinary: ABSENT: dysuria Integumentary: ABSENT: diaphoresis Neurological: ABSENT: abnormal gait, convulsions, focal weakness, syncope Hematologic/Lymphatic: ABSENT: easy bleeding Physical Exam Vital Signs: Temp Pulse Resp BP Pulse Ox 98.0 F 123 H 22 H 123/75 97 12/21/18 13:00 12/21/18 14:00 12/21/18 14:00 12/21/18 14:00 12/21/18 14:00 Intake & Output 12/20/18 12/21/18 12/22/18 06:59 06:59 06:59 Intake Total 850 Output Total 0 0 Balance 850 0 Weight 64.2 kg 69.8 kg 69.7 kg Weight/Height Weight 69.7 kg Height 5 ft 11 in General appearance: PRESENT: cooperative, mild distress Head exam: PRESENT: atraumatic, normocephalic Eye exam: PRESENT: conjunctiva pink, EOMI Mouth exam: PRESENT: moist, neck supple Neck exam: ABSENT: JVD, lymphadenopathy, tenderness Respiratory exam: PRESENT: other - few coarse creackles at the bases. ABSENT: accessory muscle use Cardiovascular exam: PRESENT: irregular rhythm, tachycardia Pulses: PRESENT: +2 pedal pulses bilateral Vascular exam: PRESENT: normal capillary refill GI/Abdominal exam: PRESENT: soft. ABSENT: organolmegaly Rectal exam: PRESENT: deferred Gentrourinary exam: ABSENT: lesions Neurological exam: PRESENT: alert, awake, oriented to person, oriented to place, oriented to time Psychiatric exam: PRESENT: appropriate affect Laboratory/Radiographs Laboratory Results: 12/20/18 04:26 12/21/18 00:04 12/21/18 00:04 Sodium 139.6 Potassium 3.7 Chloride 108 H Carbon Dioxide 25 Anion Gap 7 BUN 17 Creatinine 1.26 H Est GFR ( Amer) > 60 Glucose 105 Calcium 8.3 L Phosphorus 4.1 Magnesium 2.0 12/19/18 12/19/18 12/19/18 12:45 12:45 12:45 Creatine Kinase 79 CK-MB (CK-2) 1.21 Troponin I 0.120 12/19/18 12/19/18 12/19/18 16:04 16:04 16:04 Creatine Kinase 84 CK-MB (CK-2) 0.98 Troponin I 0.129 Cancelled 12/19/18 12/19/18 12/20/18 22:44 22:44 04:26 Creatine Kinase 68 54 L CK-MB (CK-2) 0.92 Troponin I 0.126 12/20/18 04:26 Creatine Kinase CK-MB (CK-2) 0.89 Troponin I 0.123 Impressions: Chest CT 12/19/18 00:00 IMPRESSION: Increased bilateral perihilar ground-glass opacification: Pulmonary edema versus chronic interstitial changes versus atypical infectious/ inflammatory process. Other findings as described. Chest X-Ray 12/19/18 12:07 IMPRESSION: Mild interstitial prominence similar to the prior study. No consolidation or pleural effusion. Critical Time -: The care of a critically ill patient is dynamic. This note represents a static moment in the admission process. orders and treatments may be given simulataneously and urgentl, and time is not pharmacy services representative of the treatment process. This patient requires Critical Care secondary to life threating organ or limb dysfunction. Without the need for Critical Care services, the patient is at risk for increasid mortality and morbidity. Assessment & Plan - Diagnosis (1) COPD (chronic obstructive pulmonary disease) Is this a current diagnosis for this admission?: Yes Plan: the patient hasd reynoso history of COPD but I fdo not believe iot is presently a convincing cause for hsi symptoms presently He is not on home 02. He does not use a HHHN or inhalers either. (2) Chest pain Qualifiers: Chest pain type: unspecified Qualified Code(s): R07.9 - Chest pain, unspecified Is this a current diagnosis for this admission?: Yes Plan: Unclear if hsi chest poain a few days ago is attributable to new onset angina, atrail fib with rapid heart rate of both. At some point thepatient needs to have n EST with imaging. The patient had an ECHO on admissionshowing global rediced suystolic fn.with LVEF of 35-40%. Unclear if the cause is ischemic or not. (3) Elevated troponin Is this a current diagnosis for this admission?: Yes Plan: Hs tropinins were slightly elevated. He may have suffered from demand ischemia related to the rapid heart rate. No sign electrocardiographically of acute ID (5) Atrial fibrillation Qualifiers: Atrial fibrillation type: paroxysmal Qualified Code(s): I48.0 - Paroxysmal atrial fibrillation Is this a current diagnosis for this admission?: Yes Plan: The patient has developed and may have had PAF recently. He has been brought ot the ICU. I have asked Dr. Santos to weight in. The poatient has been started on anticoagualtion and IOV amioidarone at this time. Of chemical conversionis unsuccessful we may have to try electrical cardioversion.
--- NOTE | 2018-12-21 16:13 | PDOC PROGRESS REPORT ---
Subjective Progress Note for:: 12/21/18 Subjective:: Had an episode of tachycardia last night that responded to a dose of Lopressor. This morning as I got to the floor his heart rate shot back up into the 150s, occasionally into the 170s. He was asymptomatic and his blood pressure was in the normal range. He did look a little anxious. We gave him a dose of IV Cardizem but did not have much of an effect. We were going to start a Cardizem drip, but we checked his echocardiogram and saw that he has an EF of 35%, so we opted to start an esmolol drip instead. Because they cannot do an esmolol drip on the floor, we had to send him to the ICU. I called Dr. Haley and transferred the patient to him. Patient was to have a stress test this morning but it was stopped for an unknown reason, either because of chest pain or tachycardia. EKG showed atrial fibrillation with a rapid ventricular response. He has no known prior history of atrial fibrillation. Reason For Visit: CHEST PAIN Physical Exam Vital Signs: Temp Pulse Resp BP Pulse Ox 98.0 F 123 H 22 H 123/75 97 12/21/18 13:00 12/21/18 14:00 12/21/18 14:00 12/21/18 14:00 12/21/18 14:00 Intake & Output 12/20/18 12/21/18 12/22/18 06:59 06:59 06:59 Intake Total 850 Output Total 0 0 Balance 850 0 Weight 64.2 kg 69.8 kg 69.7 kg General appearance: PRESENT: no acute distress, cooperative, disheveled, thin Respiratory exam: PRESENT: clear to auscultation lea, symmetrical, unlabored. ABSENT: accessory muscle use, chest wall tenderness, crackles, prolonged expira tory phas, rhonchi, tachypnea, wheezes Cardiovascular exam: PRESENT: Tachycardic, irregular Pulses: PRESENT: normal carotid pulses Vascular exam: PRESENT: normal capillary refill GI/Abdominal exam: PRESENT: normal bowel sounds, soft. ABSENT: distended, guarding, rebound, tenderness Extremities exam: ABSENT: clubbing, pedal edema Musculoskeletal exam: PRESENT: normal inspection. ABSENT: deformity Neurological exam: PRESENT: alert, awake, oriented to person, oriented to place, oriented to situation Psychiatric exam: PRESENT: appropriate affect, normal mood Skin exam: PRESENT: dry, warm Results Laboratory Results: 12/20/18 04:26 12/21/18 00:04 12/21/18 00:04 Sodium 139.6 Potassium 3.7 Chloride 108 H Carbon Dioxide 25 Anion Gap 7 BUN 17 Creatinine 1.26 H Est GFR ( Amer) > 60 Glucose 105 Calcium 8.3 L Phosphorus 4.1 Magnesium 2.0 12/19/18 12/19/18 12/19/18 12:45 12:45 12:45 Creatine Kinase 79 CK-MB (CK-2) 1.21 Troponin I 0.120 12/19/18 12/19/18 12/19/18 16:04 16:04 16:04 Creatine Kinase 84 CK-MB (CK-2) 0.98 Troponin I 0.129 Cancelled 12/19/18 12/19/18 12/20/18 22:44 22:44 04:26 Creatine Kinase 68 54 L CK-MB (CK-2) 0.92 Troponin I 0.126 12/20/18 04:26 Creatine Kinase CK-MB (CK-2) 0.89 Troponin I 0.123 Impressions: Chest CT 12/19/18 00:00 IMPRESSION: Increased bilateral perihilar ground-glass opacification: Pulmonary edema versus chronic interstitial changes versus atypical infectious/ inflammatory process. Other findings as described. Chest X-Ray 12/19/18 12:07 IMPRESSION: Mild interstitial prominence similar to the prior study. No consolidation or pleural effusion. Assessment and Plan - Diagnosis (1) Chest pain Qualifiers: Chest pain type: unspecified Qualified Code(s): R07.9 - Chest pain, unspecified Is this a current diagnosis for this admission?: Yes Plan: His evaluation was put on hold for the reasons listed above (2) Heart failure with reduced ejection fraction Qualifiers: Heart failure chronicity: chronic Qualified Code(s): I50.22 - Chronic systolic (congestive) heart failure Is this a current diagnosis for this admission?: Yes Plan: Not acutely exacerbated. I am not sure how long he has had this. We will attempt to medically optimize him prior to discharge. (3) Atrial fibrillation Qualifiers: Atrial fibrillation type: unspecified Qualified Code(s): I48.91 - Unspecified atrial fibrillation Is this a current diagnosis for this admission?: Yes Plan: He had atrial fibrillation with a rapid ventricular response. Transferred to the ICU for the reasons listed above. - Time Time Spent with patient: 35 or more minutes - Inpatient Certification Based on my medical assessment, after consideration of the patient's comorbidities, presenting symptoms, or acuity I expect that the services needed warrant INPATIENT care.: Yes I certify that my determination is in accordance with my understanding of Medicare's requirements for reasonable and necessary INPATIENT services [42 CFR 412.3e].: Yes Medical Necessity: Significant Comorbidiites Make Outpatient Treatment Too Risky, Need Close Monitoring Due to Risk of Patient Decompensation, Need For Continuous Telemetry Monitoring, Risk of Complication if Not Cared For in Hospital
[2018-12-21] MEDS: QUETIAPINE FUMARATE 100 MG TABLET PO SCH (21:03)
--- NOTE | 2018-12-21 22:20 | EKG REPORT ---
SEVERITY:- ABNORMAL ECG - SINUS ARRHYTHMIA, RATE [id number] VENTRICULAR PREMATURE COMPLEX PROLONGED QT INTERVAL : Confirmed by: Alina Raymundo MD 21-Dec-2018 22:19:40
--- NOTE | 2018-12-21 22:21 | EKG REPORT ---
SEVERITY:- ABNORMAL ECG - PAIRED VENTRICULAR PREMATURE COMPLEXES ABERRANT COMPLEX ABNRM R PROG, CONSIDER ASMI OR LEAD PLACEMENT REPOLARIZATION ABNORMALITY, PROB RATE RELATED ATRIAL FIBRILLATION WITH RAPID V-RATE : Confirmed by: Alina Raymundo MD 21-Dec-2018 22:20:34
--- NOTE | 2018-12-21 22:58 | PDOC CONSULTATION ---
Consultation-Blank Consultation: CARDIOLOGY CONSULTATION by Dr. Alina Raymundo on 12/21/2018. Patient seen for at least 45 minutes at 10 AM, and the patient was in atrial fibrillation with rapid ventricular response in the ICU subsequently the patient was seen at 1600 for another 30 minutes after the patient converted to sinus rhythm. A t otal of 75 minutes spent on this patient with more than 50% of the time spent in direct patient care. Consult REQUESTING PHYSICIAN: Dr. Arturo Johnson, hospitalist, and Dr. Haley. REASON FOR CONSULTATION: New onset atrial fibrillation with rapid ventricular response. HISTORY PRESENT ILLNESS: Patient is a 73-year-old male with known history of coronary artery disease. Old myocardial infarction history of stent placement, history of COPD hypertension and depression admitted with symptoms of vague chest pains and shortness of breath with exertion. He also has been having cough which is been dry. The patient's troponin I was negative. The patient had an echocardiogram which showed LV ejection fraction of 35 to 40%. The patient was scheduled for stress test today and had resting images done. 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 Hence the patient was transferred to the ICU for starting an esmolol drip, after the stress portion of the stress test was rescheduled for tomorrow. The patient in the ICU instead of esmolol, started the patient on IV amiodarone drip with the also the patient being placed on Lovenox 1 mg/kg subcutaneously every 12 hours, and if the patient did not convert within the 48 hours time. Then would cardiovert him to sinus rhythm. The patient was started on IV amiodarone bolus and infusion and subsequently converted to sinus rhythm. And the patient had resolution of his shortness of breath and chest pressure. The patient denies such episodes in the past. Past Medical History Cardiac Medical History: Reports: Hyperlipidema, Hypertension - On no blood pressure medications because he says all of them drop his press. History of remote myocardial infarction and history of stent placement in unknown coronary artery in in [place] about 8 years ago. No prior history of atrial fibrillation. No prior history of congestive heart failure symptoms. Pulmonary Medical History: Reports: Asthma, Chronic Obstructive Pulmonary Disease (COPD) Neurological Medical History: Denies: Seizures Renal/ Medical History: Reports: None Malignancy Medical History: Reports: None GI Medical History: Reports: None Musculoskeltal Medical History: Reports: None Psychiatric Medical History: Reports: None Denies: Depression Hematology: Reports: None Past Surgical History Past Surgical History: Reports: Orthopedic Surgery - Left TKR Social History Information Source: Patient Smoking Status: Former Smoker Frequency of Alcohol Use: None Hx Recreational Drug Use: No Drugs: Marijuana Hx Prescription Drug Abuse: No - Advance Directive Resuscitation Status: Do Not Resuscitate. The patient's son is a surrogate healthcare decision maker. Family History Family History: Positive for hypertension. Medication/Allergy Home Medications: Albuterol Sulfate [Ventolin Hfa 8 gm Mdi (1 Mdi/ER Disp)] 2 puff IH Q6HP PRN 12/08/18 Esomeprazole Mag Trihydrate [Nexium] 40 mg PO DAILY 12/08/18 Fluticasone Propionate [Flonase Nasal [place] 50 Mcg/[place] 16 gm] 1 spray NASL Q12 12/08/18 Fluticasone/Salmeterol [Advair 250-50 Diskus 14 Dose/Diskus] 1 inh IH Q12 12/08/18 Gabapentin 600 mg PO TID 12/08/18 Hydrocodone/Acetaminophen [[place] 5-325 mg Tablet] 1 tab PO TIDP PRN 12/08/18 Quetiapine Fumarate [Seroquel] 300 mg PO QHS 12/08/18 Allergies/Adverse Reactions: No Known Allergies Allergy (Verified 12/19/18 10:00) Review of Systems Constitutional: PRESENT: fatigue, weakness. ABSENT: fever(s) Eyes: ABSENT: visual disturbances Ears: ABSENT: hearing changes Nose, Mouth, and Throat: ABSENT: sore throat Cardiovascular: PRESENT: chest pain. ABSENT: dyspnea on exertion, orthropnea, palpitations Respiratory: PRESENT: cough Gastrointestinal: PRESENT: nausea, other - Decreased appetite Musculoskeletal: ABSENT: joint swelling Neurological: ABSENT: abnormal gait, abnormal speech, confusion, dizziness, focal weakness, syncope Psychiatric: ABSENT: anxiety, depression, homidical ideation, suicidal ideation. PHYSICAL EXAMINATION: The patient is well-built and well-nourished. At present after he converted to sinus rhythm in no acute distress. Earlier the patient had mild chest pressure when he was in atrial fibrillation with rapid ventricular response. Selected Entries 12/21/18 12/21/18 12/21/18 11:08 12:00 16:00 Temperature 96.1 F L Temperature Oral Source Pulse Rate 141 H Heart Rate ( 146 Monitors) Respiratory 22 H 24 H Rate Blood Pressure 130/71 H Blood Pressure 101/70 [Right Upper Arm] Blood Pressure 90 Mean Blood Pressure 80 Mean [Right Upper Arm] Blood Pressure Supine Position [Right Upper Arm] O2 Sat by Pulse 96 97 Oximetry Oxygen Delivery Room Air Room Air Method ( includes room air) Premature Ventricular Counted Beats 12/21/18 17:08 Temperature Temperature Source Pulse Rate Heart Rate ( 95 Monitors) Respiratory 28 H Rate Blood Pressure 141/74 H Blood Pressure [Right Upper Arm] Blood Pressure 96 Mean Blood Pressure Mean [Right Upper Arm] Blood Pressure Position [Right Upper Arm] O2 Sat by Pulse 93 Oximetry Oxygen Delivery Method ( includes room air) Premature 12 Ventricular Counted Beats HEAD: Is atraumatic normocephalic. EYES: Pupils equal round regular reactive to light accommodation. Extraocular movements are normal. There is no conjunctival pallor. There is no scleral icterus. EARS: Tympanic membranes are intact. External auditory canals are clear. NOSE: There is no deviated nasal septum. There is no inflammation of the nasal mucous membrane. MOUTH: Mucous membranes of mouth are moist. Tongue is moist. There is no bleeding from the gums. THROAT: There is no redness of the oropharynx. There is no exudates. SKIN: There is no skin rashes or skin lesions. There is no petechia or ecchymosis. NECK: There is no JVD. Carotids are equal there is no bruit. There is no lymphadenopathy. There is no goiter. There is no accessory muscle respiration use.. Trachea is central. LUNGS: Shows diminished air entry prolonged expiration without any rhonchi rales or wheezing. On percussion there is hyperresonance. HEART: When the patient was in atrial fibrillation S1-S2 is heard there is variable S1 intensity. There is murmur of mitral regurgitation present. There is no S3 gallop. There is no S4 gallop. Subsequent to the patient converting to sinus rhythm S1 is of normal intensity with the other findings remaining the same. There was no rub. ABDOMEN: Soft bowel sounds well heard. There is no hepatospleno megaly. Bowel sounds well heard. EXTREMITY is: Femorals are diminished. There is no femoral bruits. Leg pulses are diminished. There is no pedal edema. There is no DVT escalators. There is no calf tenderness. 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 PSYCHIATRIC: The patient judgment insight are intact his affect is normal. Labs- Entire Visit 12/19/18 12/19/18 12/19/18 12:45 12:45 12:45 WBC 8.4 RBC 4.39 Hgb 12.9 L Hct 38.9 MCV 89 MCH 29.4 MCHC 33.1 RDW 14.2 H Plt Count 237 Lymph % (Auto) 18.9 [place] % (Auto) 9.1 Eos % (Auto) 0.1 Baso % (Auto) 1.2 Absolute Neuts (auto) 6.0 Absolute Lymphs (auto) 1.6 Absolute Monos (auto) 0.8 Absolute Eos (auto) 0.0 Absolute Basos (auto) 0.1 Seg Neutrophils % 70.7 Sodium 140.6 Potassium 4.0 Chloride 104 Carbon Dioxide 26 Anion Gap 11 BUN 14 Creatinine 1.11 Est GFR ( Amer) > 60 Est GFR (MDRD) Non-Af > 60 Glucose 119 H Hemoglobin A1c % Lactic Acid Calcium 9.4 Phosphorus Magnesium Total Bilirubin 1.1 Direct Bilirubin 0.2 Neonat Total Bilirubin Not Reportable Neonat Direct Bilirubin Not Reportable Neonat Indirect Bili Not Reportable AST 21 ALT 15 Alkaline Phosphatase 92 Creatine Kinase 79 CK-MB (CK-2) 1.21 Troponin I Total Protein 7.0 Albumin 3.9 Triglycerides Cholesterol LDL Cholesterol Direct VLDL Cholesterol HDL Cholesterol Lipase 73.5 TSH Urine Color Urine Appearance Urine pH Ur Specific [place] Urine Protein Urine Glucose (UA) Urine Ketones Urine Blood Urine Nitrite Urine Bilirubin Urine Urobilinogen Ur Leukocyte Esterase Urine WBC (Auto) Urine RBC (Auto) Squamous Epi Cells Auto Urine Mucus (Auto) Urine Ascorbic Acid Urine Opiates Screen Urine Methadone Screen Ur Barbiturates Screen Ur Phencyclidine Scrn Ur Amphetamines Screen U Benzodiazepines Scrn Urine Cocaine Screen U Marijuana (THC) Screen 12/19/18 12/19/18 12/19/18 12:45 12:45 12:45 WBC RBC Hgb Hct MCV MCH MCHC RDW Plt Count Lymph % (Auto) [place] % (Auto) Eos % (Auto) Baso % (Auto) Absolute Neuts (auto) Absolute Lymphs (auto) Absolute Monos (auto) Absolute Eos (auto) Absolute Basos (auto) Seg Neutrophils % Sodium Potassium Chloride Carbon Dioxide Anion Gap BUN Creatinine Est GFR ( Amer) Est GFR (MDRD) Non-Af Glucose Hemoglobin A1c % Lactic Acid Calcium Phosphorus Magnesium Total Bilirubin Direct Bilirubin Neonat Total Bilirubin Neonat Direct Bilirubin Neonat Indirect Bili AST ALT Alkaline Phosphatase Creatine Kinase CK-MB (CK-2) Troponin I 0.120 Total Protein Albumin Triglycerides Cholesterol LDL Cholesterol Direct VLDL Cholesterol HDL Cholesterol Lipase TSH Urine Color YELLOW Urine Appearance CLEAR Urine pH 5.0 Ur Specific [place] 1.023 Urine Protein NEGATIVE Urine Glucose (UA) NEGATIVE Urine Ketones 20 H Urine Blood SMALL H Urine Nitrite NEGATIVE Urine Bilirubin NEGATIVE Urine Urobilinogen 4.0 H Ur Leukocyte Esterase LARGE H Urine WBC (Auto) 43 Urine RBC (Auto) 5 Squamous Epi Cells Auto 1 Urine Mucus (Auto) MOD Urine Ascorbic Acid NEGATIVE Urine Opiates Screen UNCONFIRMED POSITIVE Urine Methadone Screen NEGATIVE Ur Barbiturates Screen NEGATIVE Ur Phencyclidine Scrn NEGATIVE Ur Amphetamines Screen NEGATIVE U Benzodiazepines Scrn NEGATIVE Urine Cocaine Screen NEGATIVE U Marijuana (THC) Screen UNCONFIRMED POSITIVE 12/19/18 12/19/18 12/19/18 15:30 16:04 16:04 WBC RBC Hgb Hct MCV MCH MCHC RDW Plt Count Lymph % (Auto) [place] % (Auto) Eos % (Auto) Baso % (Auto) Absolute Neuts (auto) Absolute Lymphs (auto) Absolute Monos (auto) Absolute Eos (auto) Absolute Basos (auto) Seg Neutrophils % Sodium Potassium Chloride Carbon Dioxide Anion Gap BUN Creatinine Est GFR ( Amer) Est GFR (MDRD) Non-Af Glucose Hemoglobin A1c % Lactic Acid 1.4 Calcium Phosphorus Magnesium Total Bilirubin Direct Bilirubin Neonat Total Bilirubin Neonat Direct Bilirubin Neonat Indirect Bili AST ALT Alkaline Phosphatase Creatine Kinase 84 CK-MB (CK-2) Troponin I 0.129 Total Protein Albumin Triglycerides Cholesterol LDL Cholesterol Direct VLDL Cholesterol HDL Cholesterol Lipase TSH Urine Color Urine Appearance Urine pH Ur Specific [place] Urine Protein Urine Glucose (UA) Urine Ketones Urine Blood Urine Nitrite Urine Bilirubin Urine Urobilinogen Ur Leukocyte Esterase Urine WBC (Auto) Urine RBC (Auto) Squamous Epi Cells Auto Urine Mucus (Auto) Urine Ascorbic Acid Urine Opiates Screen Urine Methadone Screen Ur Barbiturates Screen Ur Phencyclidine Scrn Ur Amphetamines Screen U Benzodiazepines Scrn Urine Cocaine Screen U Marijuana (THC) Screen 12/19/18 12/19/18 12/19/18 16:04 22:44 22:44 WBC RBC Hgb Hct MCV MCH MCHC RDW Plt Count Lymph % (Auto) [place] % (Auto) Eos % (Auto) Baso % (Auto) Absolute Neuts (auto) Absolute Lymphs (auto) Absolute Monos (auto) Absolute Eos (auto) Absolute Basos (auto) Seg Neutrophils % Sodium Potassium Chloride Carbon Dioxide Anion Gap BUN Creatinine Est GFR ( Amer) Est GFR (MDRD) Non-Af Glucose Hemoglobin A1c % Lactic Acid Calcium Phosphorus Magnesium Total Bilirubin Direct Bilirubin Neonat Total Bilirubin Neonat Direct Bilirubin Neonat Indirect Bili AST ALT Alkaline Phosphatase Creatine Kinase 68 CK-MB (CK-2) 0.98 0.92 Troponin I Cancelled 0.126 Total Protein Albumin Triglycerides Cholesterol LDL Cholesterol Direct VLDL Cholesterol HDL Cholesterol Lipase TSH Urine Color Urine Appearance Urine pH Ur Specific [place] Urine Protein Urine Glucose (UA) Urine Ketones Urine Blood Urine Nitrite Urine Bilirubin Urine Urobilinogen Ur Leukocyte Esterase Urine WBC (Auto) Urine RBC (Auto) Squamous Epi Cells Auto Urine Mucus (Auto) Urine Ascorbic Acid Urine Opiates Screen Urine Methadone Screen Ur Barbiturates Screen Ur Phencyclidine Scrn Ur Amphetamines Screen U Benzodiazepines Scrn Urine Cocaine Screen U Marijuana (THC) Screen 12/20/18 12/20/18 12/20/18 04:26 04:26 04:26 WBC 7.1 RBC 3.87 L Hgb 11.3 L Hct 34.2 L MCV 88 MCH 29.2 MCHC 33.1 RDW 14.1 H Plt Count 176 Lymph % (Auto) 30.8 [place] % (Auto) 10.2 Eos % (Auto) 0.5 Baso % (Auto) 1.0 Absolute Neuts (auto) 4.1 Absolute Lymphs (auto) 2.2 Absolute Monos (auto) 0.7 Absolute Eos (auto) 0.0 Absolute Basos (auto) 0.1 Seg Neutrophils % 57.5 Sodium 141.8 Potassium 3.6 Chloride 108 H Carbon Dioxide 25 Anion Gap 9 BUN 15 Creatinine 1.20 Est GFR ( Amer) > 60 Est GFR (MDRD) Non-Af 59 L Glucose 102 Hemoglobin A1c % Lactic Acid Calcium 8.5 Phosphorus Magnesium 2.3 Total Bilirubin 0.7 Direct Bilirubin 0.4 Neonat Total Bilirubin Not Reportable Neonat Direct Bilirubin Not Reportable Neonat Indirect Bili Not Reportable AST 23 ALT 15 Alkaline Phosphatase 74 Creatine Kinase 54 L CK-MB (CK-2) 0.89 Troponin I 0.123 Total Protein 5.3 L Albumin 2.9 L Triglycerides 112 Cholesterol 178.59 LDL Cholesterol Direct 134 H VLDL Cholesterol 22.0 HDL Cholesterol 35 L Lipase TSH Urine Color Urine Appearance Urine pH Ur Specific [place] Urine Protein Urine Glucose (UA) Urine Ketones Urine Blood Urine Nitrite Urine Bilirubin Urine Urobilinogen Ur Leukocyte Esterase Urine WBC (Auto) Urine RBC (Auto) Squamous Epi Cells Auto Urine Mucus (Auto) Urine Ascorbic Acid Urine Opiates Screen Urine Methadone Screen Ur Barbiturates Screen Ur Phencyclidine Scrn Ur Amphetamines Screen U Benzodiazepines Scrn Urine Cocaine Screen U Marijuana (THC) Screen 12/20/18 12/20/18 12/21/18 04:26 04:26 00:04 WBC RBC Hgb Hct MCV MCH MCHC RDW Plt Count Lymph % (Auto) [place] % (Auto) Eos % (Auto) Baso % (Auto) Absolute Neuts (auto) Absolute Lymphs (auto) Absolute Monos (auto) Absolute Eos (auto) Absolute Basos (auto) Seg Neutrophils % Sodium 139.6 Potassium 3.7 Chloride 108 H Carbon Dioxide 25 Anion Gap 7 BUN 17 Creatinine 1.26 H Est GFR ( Amer) > 60 Est GFR (MDRD) Non-Af 56 L Glucose 105 Hemoglobin A1c % 5.5 Lactic Acid Calcium 8.3 L Phosphorus 4.1 Magnesium 2.0 Total Bilirubin Direct Bilirubin Neonat Total Bilirubin Neonat Direct Bilirubin Neonat Indirect Bili AST ALT Alkaline Phosphatase Creatine Kinase CK-MB (CK-2) Troponin I Total Protein Albumin Triglycerides Cholesterol LDL Cholesterol Direct VLDL Cholesterol HDL Cholesterol Lipase TSH 3.85 Urine Color Urine Appearance Urine pH Ur Specific [place] Urine Protein Urine Glucose (UA) Urine Ketones Urine Blood Urine Nitrite Urine Bilirubin Urine Urobilinogen Ur Leukocyte Esterase Urine WBC (Auto) Urine RBC (Auto) Squamous Epi Cells Auto Urine Mucus (Auto) Urine Ascorbic Acid Urine Opiates Screen Urine Methadone Screen Ur Barbiturates Screen Ur Phencyclidine Scrn Ur Amphetamines Screen U Benzodiazepines Scrn Urine Cocaine Screen U Marijuana (THC) Screen Current Medications Generic Name Dose Route Start Last Admin Trade Name Freq PRN Reason Stop Dose Admin Acetaminophen 650 mg 12/19/18 17:22 Tylenol 325 Mg Tablet PO 01/18/19 17:21 Q4HP PRN FEVER >101 Hydrocodone Bitart/Acetaminophen 1 tab 12/19/18 17:29 12/21/18 09:48 [place] 5-325 Mg Tablet PO 12/26/18 17:28 1 tab Q6HP PRN Administration FOR PAIN Aspirin 325 mg 12/20/18 10:00 12/21/18 09:47 Aspirin 325 Mg Tablet PO 01/19/19 09:59 325 mg DAILY LINDSAY Administration Enoxaparin Sodium 40 mg 12/20/18 10:00 12/21/18 09:47 Lovenox Inj 40 Mg/0.4 Ml Disp.Syrin SUBCUT 01/19/19 09:59 40 mg DAILY LINDSAY Administration Amiodarone HCl 900 mg/ 500 mls @ 0 mls/hr 12/21/18 13:00 12/21/18 19:28 Dextrose IV 12/24/18 12:59 16.66 mls/hr CONTINUOUS PRN 16.66 mls/hr THIS MED IS NOT "PRN" Titration Protocol Per Protocol Ondansetron HCl 4 mg 12/19/18 17:22 Zofran Inj/Pf 4 Mg/2 Ml Sdv IV 01/18/19 17:21 Q8HP PRN FOR NAUSEA/VOMITING Pantoprazole Sodium 40 mg 12/20/18 06:00 12/21/18 17:[address] Tablet PO 01/19/19 05:59 40 mg BID@0600,1700 LINDSAY Administration Quetiapine Fumarate 300 mg 12/19/18 22:00 12/21/18 21:03 Seroquel 100 Mg Tablet PO 01/18/19 21:59 300 mg QHS LINDSAY Administration Sodium Chloride 2.5 ml 12/19/18 22:00 12/21/18 21:03 Saline Flush 2.5 Ml Monoject Prefil Syrin IV 01/18/19 21:59 Not Given Q8 LINDSAY Discontinued Medications Generic Name Dose Route Start Last Admin Trade Name Freq PRN Reason Stop Dose Admin Aspirin 324 mg 12/19/18 12:08 12/19/18 12:42 Aspirin 81 Mg Chewable Tablet PO 12/19/18 12:09 324 mg NOW ONE Administration Atorvastatin Calcium 10 mg 12/19/18 17:26 12/19/18 18:18 Lipitor 10 Mg Tablet PO 12/19/18 17:27 10 mg NOW ONE Administration Diltiazem HCl Confirm 12/21/18 09:58 12/21/18 10:15 Cardizem Inj 25 Mg/5 Ml Vial Administered 12/21/18 09:59 25 mg Dose Administration 25 mg .ROUTE .STK-MED ONE Diltiazem HCl 15 mg 12/21/18 11:00 12/21/18 12:57 Cardizem Inj 25 Mg/5 Ml Vial IV 12/21/18 11:01 Not Given NOW ONE Diltiazem HCl Confirm 12/21/18 13:17 12/21/18 13:18 Cardizem Inj 25 Mg/5 Ml Vial Administered 12/21/18 13:18 25 mg Dose Administration 25 mg .ROUTE .STK-MED ONE Enoxaparin Sodium Confirm 12/21/18 13:18 12/21/18 13:20 Lovenox Inj 100 Mg/1 Ml Disp.Syrin Administered 12/21/18 13:19 100 mg Dose Administration 100 mg SUBCUT .STK-MED ONE Esmolol HCl 2,500 mg in 250 mls @ 0 mls/hr 12/21/18 10:09 Brevibloc Rtu 2500 Mg/250 Ml Nacl Premix Bag IV 01/20/19 10:08 CONTINUOUS PRN THIS MED IS NOT "PRN" Protocol Titrate Amiodarone HCl 150 mg/ 100 mls @ 600 mls/hr 12/21/18 13:00 12/21/18 12:50 Dextrose IV 12/21/18 13:09 600 mls/hr NOW ONE Administration Metoprolol Tartrate 5 mg 12/20/18 23:00 12/20/18 23:04 Lopressor Inj/Pf 5 Mg/5 Ml Sdv IV 12/20/18 23:01 5 mg NOW ONE Administration Metoprolol Tartrate Confirm 12/20/18 22:56 12/20/18 23:03 Lopressor Inj/Pf 5 Mg/5 Ml Sdv Administered 12/20/18 22:57 Not Given Dose 5 mg IV .STK-MED ONE Chest CT 12/19/18 00:00 IMPRESSION: Increased bilateral perihilar ground-glass opacification: Pulmonary edema versus chronic interstitial changes versus atypical infectious/ inflammatory process. Other findings as described. Chest X-Ray 12/19/18 12:07 IMPRESSION: Mild interstitial prominence similar to the prior study. No consolidation or pleural effusion. Patient's echocardiogram shows moderately reduced LV ejection fraction with a EF of 35% to 40%. There is mild tricuspid regurgitation with moderate pulmonary hypertension. The patient EKG showed atrial fibrillation with rapid ventricular response. There is repolarization changes secondary to the patient's rapid ventricular response. Subsequent EKG shows sinus rhythm with PVCs. No acute changes. IMPRESSION/RECOMMENDATION: 1. New onset atrial fibrillation converted to sinus rhythm and is paroxysmal atrial fibrillation. At present continue the patient on IV amiodarone drip. Continue the patient on Lovenox. Note that the patient's corrected Jonathan vas 2 score is at least 3 and hence would recommend chronic anticoagulant therapy. Later we will start the patient on Eliquis. Will in the a.m. if the patient continues to be in sinus rhythm will discontinue the patient's amiodarone and start the patient on Toprol-XL 50 mg p.o. every 12 hours and also start him on JESSICA inhibitor in view of his cardiomyopathy. 2. Troponin I elevation: The present elevation is secondary to the patient's atrial fibrillation with rapid ventricular response. On the ninth also the patient's troponin I was borderline elevated most likely secondary to cardia myopathy. No definite evidence of acute coronary syndrome. 3. Coronary artery disease. History of IN in the past and history of stent. Will get records from [place]. Later if the blood pressure permits we will add nitrates along with the beta-blockers and aspirin. Will perform the stress portion of the Cardiolite stress test tomorrow. 4. COPD: The patient is quit smoking. Seems to be baseline with no acute exacerbation 5. Hypertension: Blood pressure well controlled. Note that the patient has a history of poorly controlled hypertension for many years. 6. Cardiomyopathy with moderately reduced LV ejection fraction. Would recommend treating the patient with cold standard recommended treatment of JESSICA inhibitors and beta-blockers. In view of the patient's COPD would prefer the patient to be on Toprol-XL rather than Coreg. 7. History of depression. Medications reviewed. Medications and management plan discussed with the attending providers on the case. Medical decision making is of high complexity. Will follow.
--- NOTE | 2018-12-22 06:22 | PDOC PROGRESS REPORT ---
Subjective Progress Note for:: 12/22/18 Subjective:: THe patient presented yesterday with new onset rapid atrial fibrillation His heart rate was 130-150. I consulted with Dr. Santos. the patient was placed on a regimen of IV amiodarone for cardioversion and Lovenox He is hemdynamically stbale. he is not having chest pain. His rhythm appears to be NSR for the most part presently. Reason For Visit: CHEST PAIN Physical Exam Vital Signs: Temp Pulse Resp BP Pulse Ox 97.7 F 101 H 26 H 93/72 L 94 12/22/18 04:00 12/21/18 19:15 12/22/18 02:00 12/22/18 01:08 12/22/18 02:00 Intake & Output 12/20/18 12/21/18 12/22/18 06:59 06:59 06:59 Intake Total 850 215 Output Total 0 635 Balance 850 -420 Weight 64.2 kg 69.8 kg 69.7 kg General appearance: PRESENT: no acute distress Eye exam: PRESENT: conjunctiva pink Mouth exam: PRESENT: moist Respiratory exam: ABSENT: accessory muscle use Cardiovascular exam: PRESENT: RRR GI/Abdominal exam: PRESENT: normal bowel sounds Rectal exam: PRESENT: deferred Neurological exam: PRESENT: alert, altered, awake Psychiatric exam: PRESENT: normal mood Results Laboratory Results: 12/20/18 04:26 12/21/18 00:04 12/19/18 12/19/18 12/19/18 12:45 12:45 12:45 Creatine Kinase 79 CK-MB (CK-2) 1.21 Troponin I 0.120 12/19/18 12/19/18 12/19/18 16:04 16:04 16:04 Creatine Kinase 84 CK-MB (CK-2) 0.98 Troponin I 0.129 Cancelled 12/19/18 12/19/18 12/20/18 22:44 22:44 04:26 Creatine Kinase 68 54 L CK-MB (CK-2) 0.92 Troponin I 0.126 12/20/18 04:26 Creatine Kinase CK-MB (CK-2) 0.89 Troponin I 0.123 Impressions: Chest CT 12/19/18 00:00 IMPRESSION: Increased bilateral perihilar ground-glass opacification: Pulmonary edema versus chronic interstitial changes versus atypical infectious/ inflammatory process. Other findings as described. Chest X-Ray 12/19/18 12:07 IMPRESSION: Mild interstitial prominence similar to the prior study. No consolidation or pleural effusion. Assessment & Plan - Diagnosis (1) COPD (chronic obstructive pulmonary disease) Is this a current diagnosis for this admission?: Yes Plan: the patient has had history of COPD but I fdo not believe iot is presently a convincing cause for hsi symptoms presently He is not on home 02. He does not use a HHHN or inhalers either. (2) Chest pain Qualifiers: Chest pain type: unspecified Qualified Code(s): R07.9 - Chest pain, unspecified Is this a current diagnosis for this admission?: Yes (3) Elevated troponin Is this a current diagnosis for this admission?: Yes Plan: Hs tropinins were slightly elevated. He may have suffered from demand ischemia related to the rapid heart rate. No sign electrocardiographically of acute LA (4) Atrial fibrillation Qualifiers: Atrial fibrillation type: paroxysmal Qualified Code(s): I48.0 - Paroxysmal atrial fibrillation Is this a current diagnosis for this admission?: Yes Plan: The patient has developed and may have had PAF recently. He has been brought ot the ICU. I have asked Dr. Santos to weight in. The poatient has been started on anticoagualtion and IOV amioidarone at this time. Of chemical conversionis unsuccessful we may have to try electrical cardioversion. - Time Time Spent with patient: 25-34 minutes Medications reviewed and adjusted accordingly: Yes
--- NOTE | 2018-12-22 09:34 | EKG REPORT ---
SEVERITY:- BORDERLINE ECG - SINUS RHYTHM VENTRICULAR PREMATURE COMPLEX BORDERLINE PROLONGED QT INTERVAL : Confirmed by: Alina Raymundo MD 22-Dec-2018 09:33:47
[2018-12-22] MEDS: ENOXAPARIN SODIUM INJ 80 MG/0.8 ML DISP.SYRIN SUBCUT SCH ×2 (10:37→21:11)
[2018-12-22] MEDS: ASPIRIN 325 MG TABLET PO SCH (10:37)
[2018-12-22] MEDS: PANTOPRAZOLE SODIUM 40 MG TABLET.DR PO SCH ×2 (10:37→16:28)
[2018-12-22] MEDS ORDERED: LISINOPRIL 5 MG TABLET ONE (12:33)
[2018-12-22] MEDS ORDERED: METOPROLOL SUCCINATE 25 MG TAB.SR.24H PO ONE (12:33)
[2018-12-22] MEDS ORDERED: REGADENOSON INJ 0.4 MG/5 ML DISP.SYRIN IV ONE (13:20)
[2018-12-22] MEDS ORDERED: ONDANSETRON HCL INJ/PF 4 MG/2 ML SDV IV PRN (14:00)
[2018-12-22] MEDS: HYDROCODONE/ACETAMINOPHEN 5-325 MG TABLET PO PRN (16:32)
[2018-12-22] MEDS: QUETIAPINE FUMARATE 100 MG TABLET PO SCH (21:12)
[2018-12-22] MEDS: LISINOPRIL 5 MG TABLET PO SCH (21:12)
--- NOTE | 2018-12-22 21:57 | Progress Note ---
Provider Note Provider Note: CARDIOLOGY PROGRESS NOTE by Dr. Alina Raymundo on 12/22/2018. SUBJECTIVE: The patient converted to sinus rhythm on IV amiodarone and continues to be in sinus rhythm. He has occasional PVCs present. The patient has no chest pain or discomfort. He does have some shortness of breath which most likely secondary to his COPD. He has no cough or wheezing. The patient did tolerate stopping of the amiodarone and the patient was started on Lopressor after the stress test. Earlier the patient underwent a IV Lexiscan Cardiolite stress test which showed no reversible ischemia there is several areas of myocardial infarction and with a dilated LV with reduced LV function. Please see report. PHYSICAL EXAMINATION: The patient is well-built, appears to be in no acute distress. Selected Entries 12/22/18 12/22/18 15:29 16:00 Temperature 98.3 F Temperature Oral Source Pulse Rate 89 Respiratory 29 H Rate Blood Pressure 122/86 H [Right Upper Arm] Blood Pressure 98 Mean [Right Upper Arm] Blood Pressure Supine Position [Right Upper Arm] O2 Sat by Pulse 98 Oximetry Oxygen Delivery Nasal Cannula Method ( includes room air) Fraction of 24 Inspired Oxygen (FIO2) Oxygen Flow 1 Rate HEAD: Is atraumatic normocephalic. EYES: Pupils equal round regular reactive to light accommodation. Extraocular movements are normal. There is no conjunctival pallor. There is no scleral icterus. EARS: Tympanic membranes are intact. External auditory canals are clear. NOSE: There is no deviated nasal septum. There is no inflammation of the nasal mucous membrane. MOUTH: Mucous membranes of mouth are moist. Tongue is moist. There is no bleeding from the gums. THROAT: There is no redness of the oropharynx. There is no exudates. SKIN: There is no skin rashes or skin lesions. There is no petechia or ecchymosis. NECK: There is no JVD. Carotids are equal there is no bruit. There is no lymphadenopathy. There is no goiter. There is no accessory muscle respiration use.. Trachea is central. LUNGS: Shows diminished air entry prolonged expiration without any rhonchi rales or wheezing. On percussion there is hyperresonance. HEART: When the patient was in atrial fibrillation S1-S2 is heard there is variable S1 intensity. There is murmur of mitral regurgitation present. There is no S3 gallop. There is no S4 gallop. Subsequent to the patient converting to sinus rhythm S1 is of normal intensity with the other findings remaining the same. There was no rub. ABDOMEN: Soft bowel sounds well heard. There is no hepatospleno megaly. Bowel sounds well heard. EXTREMITY is: Femorals are diminished. There is no femoral bruits. Leg pulses are diminished. There is no pedal edema. There is no DVT escalators. There is no calf tenderness. BICYCLE FITTER: The patient is conscious awake alert oriented x3 with no focal deficits. PSYCHIATRIC: The patient judgment insight are intact his affect is normal. Chest CT 12/19/18 00:00 IMPRESSION: Increased bilateral perihilar ground-glass opacification: Pulmonary edema versus chronic interstitial changes versus atypical infectious/ inflammatory process. Other findings as described. Chest X-Ray 12/19/18 12:07 IMPRESSION: Mild interstitial prominence similar to the prior study. No consolidation or pleural effusion. EKG: Shows sinus rhythm. Nonspecific T changes most likely post tachycardia T wave syndrome. Borderline prolonged QT interval. IMPRESSION/RECOMMENDATION: 1. New onset atrial fibrillation converted to sinus rhythm and is paroxysmal atrial fibrillation. At present continue the patient on IV amiodarone drip. Continue the patient on Lovenox. Note that the patient's corrected Jonathan vas 2 score is at least 3 and hence would recommend chronic anticoagulant therapy. Later we will start the patient on Eliquis. Will in the a.m. if the patient continues to be in sinus rhythm will discontinue the patient's amiodarone and start the patient on Toprol-XL 50 mg p.o. every 12 hours and also start him on JESSICA inhibitor in view of his cardiomyopathy. The patient initially was started on a small dose of Lopressor 25 mg p.o. every 12 hours. Tomorrow will switch to Toprol-XL. The patient also has been started on JESSICA inhibitor. We will stop the patient's Lovenox and place the patient on Eliquis. 2. Troponin I elevation: The present elevation is secondary to the patient's atrial fibrillation with rapid ventricular response. On the ninth also the patient's troponin I was borderline elevated most likely secondary to cardia myopathy. No definite evidence of acute coronary syndrome. 3. Coronary artery disease. History of CO in the past and history of stent. Will get records from [place]. Later if the blood pressure permits we will add nitrates along with the beta-blockers and aspirin. There is no reversible ischemia. The stress test is abnormal. Although there is no reversible ischemia is multiple areas of myocardial infarction and with a dilated LV with reduced LV function. 4. COPD: The patient is quit smoking. Seems to be baseline with no acute exacerbation 5. Hypertension: Blood pressure well controlled. Note that the patient has a history of poorly controlled hypertension for many years. 6. Cardiomyopathy with moderately reduced LV ejection fraction. Would recommend treating the patient with cold standard recommended treatment of JESSICA inhibitors and beta-blockers. In view of the patient's COPD would prefer the patient to be on Toprol-XL rather than Coreg. As mentioned area the patient initially was started on Lopressor 25 mg p.o. every 12 hours. We will switch to Toprol-XL tomorrow. The patient also has been started on a small dose of of JESSICA inhibitor. We will also start the patient on digoxin. 7. History of depression. We will transfer the patient out of ICU to IMCU/telemetry. Medications reviewed. Medications and management plan discussed with the attending providers on the case. Medical decision making is of high complexity. Will follow.
[2018-12-22] MEDS: METOPROLOL SUCCINATE 25 MG TAB.SR.24H PO SCH (23:02)
[2018-12-23] MEDS: PANTOPRAZOLE SODIUM 40 MG TABLET.DR PO SCH (05:04)
[2018-12-23] MEDS: HYDROCODONE/ACETAMINOPHEN 5-325 MG TABLET PO PRN (08:59)
[2018-12-23] MEDS: METOPROLOL SUCCINATE 25 MG TAB.SR.24H PO SCH (09:00)
[2018-12-23] MEDS: LISINOPRIL 5 MG TABLET PO SCH (09:00)
[2018-12-23] MEDS: ASPIRIN 325 MG TABLET PO SCH (09:00)
[2018-12-23 09:03] VITALS: BP 126/89
[2018-12-23] MEDS ORDERED: DIGOXIN 0.125 MG TABLET PO SCH (10:00)
[2018-12-23] MEDS ORDERED: APIXABAN 5 MG TABLET PO SCH (10:00)
--- NOTE | 2018-12-23 15:42 | PDOC DISCHARGE SUMMARY ---
General - Admit/Disc Date/PCP Admission Date/Primary Care Provider: 12/22/18 09:27 Discharge Date: 12/23/18 - Discharge Diagnosis (1) Chest pain Is this a current diagnosis for this admission?: Yes Summary: [place] was ruled out. He had a stress test which showed multiple areas of prior infarct but no reversible deficits. He was medically optimized. (2) Heart failure with reduced ejection fraction Is this a current diagnosis for this admission?: Yes Summary: This was not exacerbated. Cardiology was consulted. He was medically optimized. He will follow-up with Dr. Raymundo as an outpatient. (3) Atrial fibrillation Is this a current diagnosis for this admission?: Yes Summary: He went into RVR. He was given amiodarone and his rate was then kept under control with oral metoprolol and digoxin. He is being anticoagulated with Eliquis. Is following up with cardiology as an outpatient. - Additional Information Resuscitation Status: Do Not Resuscitate Discharge Diet: Cardiac Discharge Activity: Activity As Tolerated, Balance Activity w/Rest Prescriptions: Apixaban [Eliquis 5 mg Tablet] 5 mg PO BID #60 tablet Digoxin [Lanoxin 0.125 mg Tablet] 0.125 mg PO DAILY #30 tablet Lisinopril [Prinivil 5 mg Tablet] 5 mg PO Q12 #60 tablet Metoprolol Succinate [Toprol Xl 25 mg Tab.sr] 25 mg PO Q12 #60 tab.sr.24h Home Medications: Albuterol Sulfate [Proair HFA Inhalation Aerosol 8.5 gm MDI] 2 puff IH Q6HP PRN 12/19/18 Gabapentin [Neurontin 300 mg Capsule] 300 mg PO QPM 12/19/18 Hydrocodone/Acetaminophen [[place] 7.5-325 mg Tablet] 1 tab PO Q8HP PRN 12/19/18 Quetiapine Fumarate [Seroquel] 300 mg PO QHS 12/19/18 Apixaban [Eliquis 5 mg Tablet] 5 mg PO BID #60 tablet 12/23/18 Digoxin [Lanoxin 0.125 mg Tablet] 0.125 mg PO DAILY #30 tablet 12/23/18 Lisinopril [Prinivil 5 mg Tablet] 5 mg PO Q12 #60 tablet 12/23/18 Metoprolol Succinate [Toprol Xl 25 mg Tab.sr] 25 mg PO Q12 #60 tab.sr.24h 0 9/13/19 History of Present Illness History of Present Illness: TAMMY ABREU is a 73 year old male history of hypertension, COPD, depression and recent history of pneumonia came to the emergency room with complaints of squeezing-like chest pain for the last few days. Associated with insomnia and is also telling is nauseated unable to eat for the last 4 days. At the time of my examination he is chest pain-free. Initial troponin in the ER is 0.12 and second troponin is 0.129. EKG shows a wandering pacemaker with multiple PVCs. Medical consult was called for admission for abnormal troponins. Patient wants to be DNR/DNI. Hospital Course Hospital Course: He initially said he did not want any real work-up, but when I went back to talk to him in the morning after he was admitted he said he would be agreeable to a stress test with possible intervention depending on the results of the test. Before he could do the stress test the next day, he went into atrial fibrillation with RVR. Echocardiogram showed an EF of 35 to 40%, and so rather than put him on digoxin and possibly reducing his contractility and therefore precipitating heart failure, we decided to put him on either an esmolol drip or amiodarone drip. Amiodarone was chosen and fortunately he converted to a sinus rhythm. He was put on metoprolol and digoxin to help control his rate and anticoagulation was initiated. He had a stress test which showed multiple areas of prior infarct but no reversible deficits. Follow-up was coordinated with cardiology. He will see Dr. Raymundo in the office next week. His labs and examination were reassuring and he was discharged in good condition. Physical Exam Vital Signs: Temp Pulse Resp BP Pulse Ox 97.8 F 94 16 126/89 H 91 L 12/23/18 11:58 12/23/18 11:58 12/23/18 11:58 12/23/18 11:58 12/23/18 11:58 Intake & Output 12/22/18 12/23/18 12/24/18 06:59 06:59 06:59 Intake Total 215 Output Total 635 50 Balance -420 -50 Weight 71.5 kg 71.3 kg General appearance: PRESENT: no acute distress, cooperative, disheveled, thin Respiratory exam: PRESENT: clear to auscultation lea, symmetrical, unlabored. ABSENT: accessory muscle use, chest wall tenderness, crackles, prolonged expiratory phas, rhonchi, tachypnea, wheezes Cardiovascular exam: PRESENT: RRR, +S1, +S2 Pulses: PRESENT: normal carotid pulses Vascular exam: PRESENT: normal capillary refill GI/Abdominal exam: PRESENT: normal bowel sounds, soft. ABSENT: distended, guarding, rebound, tenderness Extremities exam: ABSENT: clubbing, pedal edema Musculoskeletal exam: PRESENT: normal inspection. ABSENT: deformity Neurological exam: PRESENT: alert, awake, oriented to person, oriented to place, oriented to situation Psychiatric exam: PRESENT: appropriate affect, normal mood Skin exam: PRESENT: dry, warm Results Laboratory Results: 12/20/18 04:26 12/21/18 00:04 12/19/18 12/19/18 12/19/18 12:45 12:45 12:45 Creatine Kinase 79 CK-MB (CK-2) 1.21 Troponin I 0.120 12/19/18 12/19/18 12/19/18 16:04 16:04 16:04 Creatine Kinase 84 CK-MB (CK-2) 0.98 Troponin I 0.129 Cancelled 12/19/18 12/19/18 12/20/18 22:44 22:44 04:26 Creatine Kinase 68 54 L CK-MB (CK-2) 0.92 Troponin I 0.126 12/20/18 04:26 Creatine Kinase CK-MB (CK-2) 0.89 Troponin I 0.123 Impressions: Chest CT 12/19/18 00:00 IMPRESSION: Increased bilateral perihilar ground-glass opacification: Pulmonary edema versus chronic interstitial changes versus atypical infectious/ inflammatory process. Other findings as described. Chest X-Ray 12/19/18 12:07 IMPRESSION: Mild interstitial prominence similar to the prior study. No consolidation or pleural effusion. Qualifiers - * PATIENT BEING DISCHARGED WITH ANY OF THE FOLLOWING DIAGNOSIS: No Acute Heart Failure - Is this a Heart Failure Patient?: Yes Documentation of LVEF assessment?: Yes LVEF < 40%?: Yes-if yes answer questions a through e a) Discharged on ACEI?: Yes b) Discharges on ARB?: No-document contraindications Reason(s) not discharged on ARB: Other - Discharged on JESSICA inhibitor c) Discharged on ARNI?: No-Document Contraindications Reason(s) not discharged on ARNI: Other - JESSICA inhibitor recommended by cardiology d) Discharged on evidence-based Beta arelis(carvedilol, sustained release metoprolol succinate, or bisoprolol)?: Yes e) For LVEF <35%, discharged on Aldosterone antagonist?: N/A (LVEF > or = 35%) 3. Anticoagulant therapy for permanect/persistent/paraoxysmal Afib or Aflutter: Yes Follow-up Appointment scheduled within 7 days?: Yes Plan Time Spent: Greater than 30 Minutes
[2018-12-23] MEDS ORDERED: LISINOPRIL 5 MG TABLET PO SCH (22:00)
--- NOTE | 2018-12-27 23:11 | DRAGON STRESS TEST REPORT ---
Intravenous Lexiscan Cardiolite stress test using single photon emmision computerized tomography. Date of procedure: 12/22/2018. Ordering Provider: Dr. Arturo Johnson. Patient's status: In Patient. Indication: Chest pain, elevated troponin and proximal atrial fibrillation. Coronary risk factors: Resting EKG: Sinus Rhythm. T changes anterior leads. One PVC. Stress EKG: No changes of ischemia. Patient had no chest pain or discomfort. There is no arrhythmia seen on the monitor. Reason for termination: Protocol. Conclusions: Normal EKG and hemodynamic response to IV Lexiscan. Nuclear data: At rest the patient was given 10.13 millicuries of technetium 99m sestamibi injected intravenously. As per protocol rest non gated SPECT images were obtained. Subsequently the patient was given intravenous Lexiscan at a dose of 0.4 mg in 5 mL intravenously, followed by flush with normal saline. Subsequently the stress dose of 31.4 millicuries of technetium 99m sestamibi was injected intravenously. As per protocol stress gated images were obtained. Nuclear interpretation: Review of images showed that there is motion artifact. There is a perfusion defect in the left ventricular apex, mid and apical anterior wall and apical lateral wall., In both rest and stress images. This area had decreased motion contraction and thickening consistent with prior myocardial infarction. There was also a perfusion defect in the distal lateral wall in both rest and stress images. This area also had decreased motion contraction and thickening. The rest of the myocardial monreal are normal perfusion at rest and with stress. The rest the rest of the LV monreal had normal thickening but reduced motion and contraction. Both the stress and rest images showed a dilated LV with the decrease LV ejection fraction consistent with ischemic cardia myopathy T. I D. ratio was normal at 1.13. There is no transient ischemic dilatation of the left ventricle. Computer read rest, and stress left ventricular ejection fraction were 21 %, and 21 %, respectively. Conclusion: 1. There is no scintigraphic evidence of Lexiscan induced myocardial ischemia. 2. There is scintigraphic evidence of myocardial infarction/scar involving the left ventricle apex, the apical anterior and apical lateral and the mid anterior, and apical anterior, and the distal lateral monreal 3. Dilated LV with decreased ejection fraction consistent with ischemic cardia myopathy. Check echo for LV ejection fraction correlation.. Recommendations: Aggressive risk factor modification, and treating the underlying co- morbidities. MTDD
== END 2018-12-23 12:35 | disposition home or self-care (01) | DRG 309 ==
LOC: ER 09:59 → EH 18:07 → 3N 22:01 → ICU 12-21 11:21 → OBSVTOIN 12-22 09:27 → 3N 12-22 19:25
PROVIDERS: ADMIT Internal Medicine; ATTEND Internal Medicine
DX: I48.0 Paroxysmal atrial fibrillation (principal); E46 Unspecified protein-calorie malnutrition; I42.9 Cardiomyopathy, unspecified; I50.9 Heart failure, unspecified; J44.9 Chronic obstructive pulmonary disease, unspecified; I11.0 Hypertensive heart disease with heart failure; I27.20 Pulmonary hypertension, unspecified; I36.1 Nonrheumatic tricuspid (valve) insufficiency; I34.0 Nonrheumatic mitral (valve) insufficiency; I25.2 Old myocardial infarction; Z66 Do not resuscitate; F32.9 Major depressive disorder, single episode, unspecified; R11.0 Nausea; I49.3 Ventricular premature depolarization; R74.8 Abnormal levels of other serum enzymes; I25.10 Atherosclerotic heart disease of native coronary artery without angina pectoris; E78.5 Hyperlipidemia, unspecified; Z96.652 Presence of left artificial knee joint; Z79.01 Long term (current) use of anticoagulants; Z87.01 Personal history of pneumonia (recurrent); Z95.0 Presence of cardiac pacemaker; Z95.5 Presence of coronary angioplasty implant and graft; Z87.891 Personal history of nicotine dependence; Z82.49 Family history of ischemic heart disease and other diseases of the circulatory system; Z68.21 Body mass index [BMI] 21.0-21.9, adult
CPT/HCPCS: 36415; 71046; 71250; 78452; 80053; 80061; 80307; 81001; 82550; 82553; 83036; 83605; 83690; 83735; 84100; 84443; 84484; 85025; 93005; 93010; 93017; 93306; 99291; A9500; G0378; J0282; J1650; J2785; J3490; J7060; Q9969

== ENCOUNTER 2019-05-28 11:22 | Inpatient (IN) | payer MEDICARE, MEDICAID ==
--- NOTE | 2019-05-28 11:44 | ER Document Report ---
ED Medical Screen (RME) - General Chief Complaint: Shortness Of Breath Stated Complaint: BREATHING DIFFICULTY Time Seen by Provider: 05/28/19 11:42 Notes: 73-year-old male with history of COPD presents with your dyspnea and chest tightness for the past week. Patient also states he is coughing up phlegm and feels feverish. Lungs clear to auscultation bilaterally. Regular rate and rhythm. Patient is supposed to be on oxygen but is not using. I have greeted and performed a rapid initial assessment of this patient. A comprehensive ED assessment and evaluation of the patient, analysis of test results and completion of the medical decision making process with be conducted by additional ED providers. TRAVEL OUTSIDE OF THE [place] IN LAST 30 DAYS: No - Related Data Allergies/Adverse Reactions: No Known Allergies Allergy (Verified 05/28/19 11:39) Past Medical History - Social History Chew tobacco use (# tins/day): No Frequency of alcohol use: None Drug Abuse: None - Past Medical History Cardiac Medical History: Reports: Hx Hypercholesterolemia, Hx Hypertension - On no blood pressure medications because he says all of them drop his press Pulmonary Medical History: Reports: Hx Asthma, Hx COPD Neurological Medical History: Denies: Hx Seizures Renal/ Medical History: Denies: Hx Peritoneal Dialysis Psychiatric Medical History: Denies: Hx Depression Past Surgical History: Reports: Hx Orthopedic Surgery - Left TKR Physical Exam - Vital signs Vitals: Pulse Resp BP Pulse Ox 93 16 153/110 H 92 05/28/19 11:35 05/28/19 11:35 05/28/19 11:35 05/28/19 11:35 Course - Vital Signs Vital signs: Temp Pulse Resp BP Pulse Ox 93 16 153/110 H 92 05/28/19 11:35 05/28/19 11:35 05/28/19 11:35 05/28/19 11:35
[2019-05-28 12:25] LABS: ABSOLUTE LYMPHOCYTES (AUTO) 0.9 10^3/uL (0.5-4.7); ABSOLUTE MONOCYTES (AUTO) 0.4 10^3/uL (0.1-1.4); ABSOLUTE NEUT (AUTO) 3.5 10^3/uL (1.7-8.2); EOSINOPHILS % (AUTO) 0.3 % (0-6); HEMOGLOBIN 13.1 g/dL (13.5-17.0); LYMPHOCYTES % (AUTO) 18.3 % (13-45); MEAN CORPUSCULAR HEMOGLOBIN 29.5 pg (27.0-33.4); MEAN CORPUSCULAR VOLUME 92 fl (80-97); MONOCYTES % (AUTO) 8.6 % (3-13); PLATELET COUNT 157 10^3/uL (150-450); RED BLOOD COUNT 4.44 10^6/uL (4.35-5.55); RED CELL DISTRIBUTION WIDTH 17.8 % (11.5-14.0); SEGMENTED NEUTROPHILS % (AUTO) 71.8 % (42-78); TOTAL CELLS COUNTED % (AUTO) 100 %; WHITE BLOOD COUNT 4.9 10^3/uL (4.0-10.5)
[2019-05-28] MEDS ORDERED: ONDANSETRON HCL INJ/PF 4 MG/2 ML SDV IV ONE (12:44)
[2019-05-28 12:47] LABS: ALBUMIN 3.8 g/dL (3.5-5.0); ALKALINE PHOSPHATASE 118 U/L (38-126); ANION GAP 9 (5-19); ASPARTATE AMINO TRANSFERASE 71 U/L (17-59); BILIRUBIN,DIRECT 0.4 mg/dL (0.0-0.4); BILIRUBIN,TOTAL 1.7 mg/dL (0.2-1.3); BLOOD UREA NITROGEN 13 mg/dL (7-20); CALCIUM 8.9 mg/dL (8.4-10.2); CARBON DIOXIDE 27 mmol/L (22-30); CHLORIDE 106 mmol/L (98-107); GLUCOSE 138 mg/dL (75-110); POTASSIUM 3.6 mmol/L (3.6-5.0); TOTAL PROTEIN 6.8 g/dL (6.3-8.2)
[2019-05-28 12:49] LABS: A TYPE INFLUENZA AG NEGATIVE (NEGATIVE); B INFLUENZA AG NEGATIVE (NEGATIVE)
--- NOTE | 2019-05-28 12:49 | ER Document Report ---
ED General - General Chief Complaint: Shortness Of Breath Stated Complaint: BREATHING DIFFICULTY Time Seen by Provider: 05/28/19 11:42 TRAVEL OUTSIDE OF THE [place] IN LAST 30 DAYS: No - HPI Notes: Patient is a 73-year-old male with a history of CAD, hypertension, wandering pacemaker, CHF, COPD (not on oxygen) presents complaining of shortness of breath, productive cough of green sputum, chest pain substernal, and occasional nausea/vomiting over the past week. He is still urinating normally and having normal bowel movements. He is currently on Eliquis from his last hospital stay as well as Vicodin, but states that he has not been taking any of the other rate controlled medications that he was prescribed. Patient was reported to have gone into A. fib with RVR during his hospitalization in December, but is only taking the Eliquis at this time. Patient was a DNR/DNI noted in the December visit chart review and has an EF of 35-40%. Denies any headache, fever, neck pain, URI, sore throat, dyspnea, abdominal pain, nausea/vomiting/diarrhea, urinary retention, dysuria, hematuria, or rash. - Related Data Allergies/Adverse Reactions: No Known Allergies Allergy (Verified 05/28/19 11:39) Past Medical History - Social History Smoking Status: Current Every Day Smoker Chew tobacco use (# tins/day): No Frequency of alcohol use: None Drug Abuse: None Family History: Reviewed & Not Pertinent Patient has suicidal ideation: No Patient has homicidal ideation: No - Past Medical History Cardiac Medical History: Reports: Hx Hypercholesterolemia, Hx Hypertension - On no blood pressure medications because he says all of them drop his press Pulmonary Medical History: Reports: Hx Asthma, Hx COPD Neurological Medical History: Denies: Hx Seizures Renal/ Medical History: Denies: Hx Peritoneal Dialysis Psychiatric Medical History: Denies: Hx Depression Past Surgical History: Reports: Hx Orthopedic Surgery - Left TKR - Immunizations Hx Pneumococcal Vaccination: 04/12/13 Review of Systems - Review of Systems -: Yes All other systems reviewed and negative Physical Exam - Vital signs Vitals: Pulse Resp BP Pulse Ox 93 16 153/110 H 92 05/28/19 11:35 05/28/19 11:35 05/28/19 11:35 05/28/19 11:35 - Notes Notes: PHYSICAL EXAMINATION: GENERAL: Well-appearing, well-nourished and in no acute distress. HEAD: Atraumatic, normocephalic. EYES: Pupils equal round and reactive to light, extraocular movements intact, sclera anicteric, conjunctiva are normal. ENT: Nares patent and without discharge. oropharynx clear without exudates. No tonsilar hypertrophy or erythema. Moist mucous membranes. NECK: Normal range of motion, supple without lymphadenopathy LUNGS: scant b/l expiratory wheeze R>L. HEART: Regular rate and rhythm without murmurs, rubs, gallops. ABDOMEN: Soft, nontender, nondistended abdomen. No guarding, no rebound. Normal bowel sounds present. No CVA tenderness bilaterally. Musculoskeletal: FROM to passive/active. Strength 5+/5. Obey neg. No asymmetry to LE's. Extremities: No cyanosis, clubbing, or edema b/l. Peripheral pulses 2+. Capillary refill less than 3 seconds. NEUROLOGICAL: Normal speech, normal gait. PSYCH: Normal mood, normal affect. SKIN: Warm, Dry, normal turgor, no rashes or lesions noted. Course - Re-evaluation Re-evalutation: 05/28/19 14:15 Patient is an afebrile, well-hydrated, 73-year-old male who presents with atypical chest pain and possible mild COPD exacerbation. Patient does have elevated BNP, but no other clinical signs of fluid overload. Vitals are currently acceptable. PE is otherwise unremarkable. Patient is nontoxic- appearing. See lab results and imaging. Right upper quadrant ultrasound is pending currently, but he is nontender to his right upper quadrant. I did review with Dr. Schmitt who will accept patient to telemetry. - Vital Signs Vital signs: Temp Pulse Resp BP Pulse Ox 98.0 F 93 4 L 134/95 H 99 05/28/19 12:44 05/28/19 11:35 05/28/19 12:04 05/28/19 12:04 05/28/19 12:04 - Laboratory Result Diagrams: 05/28/19 12:10 05/28/19 12:10 Laboratory results interpreted by me: 05/28/19 05/28/19 05/28/19 12:10 12:10 12:30 Hgb 13.1 L RDW 17.8 H Glucose 138 H Total Bilirubin 1.7 H AST 71 H ALT 109 H NT-Pro-B Natriuret Pep 97480 H Discharge - Discharge Clinical Impression: Nonspecific chest pain, Acute URI, COPD exacerbation Condition: Stable Disposition: ADMITTED INPATIENT Admitting Provider: Oskar (Hospitalist) Unit Admitted: Telemetry
--- NOTE | 2019-05-28 13:09 | RADIOLOGY REPORT (SQ) ---
EXAM DESCRIPTION: CHEST SINGLE VIEW COMPLETED DATE/TIME: 05/28/2019 1:01 pm REASON FOR STUDY: sob COMPARISON: 12/19/2018. EXAM PARAMETERS: NUMBER OF VIEWS: One view. TECHNIQUE: Single frontal radiographic view of the chest acquired. RADIATION DOSE: NA LIMITATIONS: None. FINDINGS: LUNGS AND PLEURA: Chronic interstitial prominence. No infiltrates, masses or pneumothorax . No pleural effusion. MEDIASTINUM AND HILAR STRUCTURES: No masses. Contour normal. HEART AND VASCULAR STRUCTURES: Cardiac enlargement. Normal vasculature. BONES: No acute findings. HARDWARE: None in the chest. OTHER: No other significant finding. IMPRESSION: CARDIOMEGALY. CHRONIC INTERSTITIAL PROMINENCE. NO APPARENT ACUTE FINDINGS. TECHNICAL DOCUMENTATION: JOB ID: [id number] 2010 [employer]- All Rights Reserved Reading location - IP/workstation name: [email or web address]
--- NOTE | 2019-05-28 14:24 | RADIOLOGY REPORT (SQ) ---
EXAM DESCRIPTION: U/S ABDOMEN LIMITED W/O DOP COMPLETED DATE/TIME: 05/28/2019 2:09 pm REASON FOR STUDY: n/v, elevated bili COMPARISON: None. TECHNIQUE: Dynamic and static grayscale images acquired of the abdomen and recorded on PACS. Additio nicole selected color Doppler and spectral images recorded. LIMITATIONS: None. FINDINGS: PANCREAS: No masses. Visualized pancreatic duct normal caliber. LIVER: Diffusely echogenic. This suggests fatty parenchyma. LIVER VASCULATURE: Normal directional flow of the main portal vein and hepatic veins. GALLBLADDER: Pericholecystic fluid. Wall measures 3.6 cm. Findings likely related to liver disease. No stones. ULTRASOUND-DETECTED STREETER'S SIGN: Negative. INTRAHEPATIC DUCTS AND COMMON DUCT: CBD and intrahepatic ducts normal caliber. No filling defects. INFERIOR VENA CAVA: Normal flow. AORTA: Distal aortic aneurysm measures 3.6 cm. RIGHT KIDNEY: Incidental 4 cm simple appearing cyst. No worrisome findings or obstructive changes. PERITONEAL AND RIGHT PLEURAL SPACE: Yes. Bilateral pleural effusions. Right 306 cubic cm. Left 42 cubic cm. Ascites is also present in the upper quadrants. OTHER: No other significant findings. IMPRESSION: 1. Fatty liver. 2. Ascites. 3. Pleural effusions. 4. No acute gallbladder disease suspected. TECHNICAL DOCUMENTATION: JOB ID: [id number] 2010 [employer]- All Rights Reserved Reading location - IP/workstation name: [email or web address]
[2019-05-28] MEDS ORDERED: ACETAMINOPHEN 325 MG TABLET PO PRN (14:57)
[2019-05-28] MEDS ORDERED: TEMAZEPAM 15 MG CAPSULE PO PRN (14:57)
--- NOTE | 2019-05-28 15:19 | PDOC H&P ---
History of Present Illness Admission Date/PCP: 05/28/19 14:37 History of Present Illness: TAMMY ABREU is a 73 year old male past medical history of hypertension, A. fib RVR, wandering pacemaker, non-oxygen dependent COPD, depression, CAD, presented to ED on 12/2018 for chest pain, had a stress test done which showed multiple reversible ischemic changes, did not receive any intervention, was managed medically, was DNR at that time, was sent home on digoxin, lisinopril, metoprolol and Eliquis for some reason patient has been taking only his Eliquis and Percocet and has not been taking any other medications Today he is presenting today complaining of pleuritic chest pain associated with productive cough. Chest pain is on the left side, sharp, nonradiating, brought on by cough, relieved with no coughing denies any fever, chills, nausea, vomiting, diarrhea, constipation or any urinary symptoms. He is also complaining of orthopnea and paroxysmal nocturnal dyspnea for the last several weeks. Denies any recent travel or sick contacts. Unfortunately patient is not taking any of his cardiac meds except for Xarelto. He is living with his son who is unfortunately also sick. Stating that starting next week he is gone to have a nurse coming in to check on him. In ED it was found that he had elevated proBNP with minimally elevated troponin and hospital was consulted for admission. Past Medical History Cardiac Medical History: Reports: Hyperlipidema, Hypertension - On no blood pressure medications because he says all of them drop his press Pulmonary Medical History: Reports: Asthma, Chronic Obstructive Pulmonary Disease (COPD) Neurological Medical History: Denies: Seizures Psychiatric Medical History: Denies: Depression Past Surgical History Past Surgical History: Reports: Orthopedic Surgery - Left TKR Social History Smoking Status: Current Every Day Smoker Electronic Cigarette use?: No Frequency of Alcohol Use: None Hx Recreational Drug Use: Yes Drugs: Marijuana Hx Prescription Drug Abuse: No Family History Family History: Reviewed & Not Pertinent Parental Family History Reviewed: Yes Children Family History Reviewed: Yes Sibling(s) Family History Reviewed.: Yes Medication/Allergy Home Medications: Quetiapine Fumarate [Seroquel] 300 mg PO QHS 12/19/18 Hydrocodone/Acetaminophen [[place] 10-325 Tablet] 1 each PO Q8HP PRN 05/28/19 Ranitidine HCl [Zantac] 150 mg PO BID 05/28/19 Allergies/Adverse Reactions: No Known Allergies Allergy (Verified 05/28/19 11:39) Review of Systems Review of Systems: as per hpi Physical Exam Vital Signs: Temp Pulse Resp BP Pulse Ox 98.0 F 93 4 L 134/95 H 99 05/28/19 12:44 05/28/19 11:35 05/28/19 12:04 05/28/19 12:04 05/28/19 12:04 Intake & Output 05/27/19 05/28/19 05/29/19 06:59 06:59 06:59 Weight 65.771 kg General appearance: PRESENT: no acute distress, cooperative, disheveled, well- developed, well-nourished Head exam: PRESENT: atraumatic, normocephalic Respiratory exam: PRESENT: clear to auscultation lea. ABSENT: rales, rhonchi, wheezes Cardiovascular exam: PRESENT: RRR, other - Bilateral parasternal tenderness to palpation.. ABSENT: diastolic murmur, rubs, systolic murmur GI/Abdominal exam: PRESENT: normal bowel sounds, soft. ABSENT: distended, guarding, mass, organolmegaly, rebound, tenderness Neurological exam: PRESENT: alert, awake, oriented to person, oriented to place, oriented to time, oriented to situation, CN II-XII grossly intact. ABSENT: motor sensory deficit Results Laboratory Results: 05/28/19 12:10 05/28/19 12:10 05/28/19 05/28/19 05/28/19 12:10 12:10 12:30 WBC 4.9 RBC 4.44 Hgb 13.1 L Hct 41.0 MCV 92 MCH 29.5 MCHC 32.0 RDW 17.8 H Plt Count 157 Seg Neutrophils % 71.8 Sodium 141.8 Potassium 3.6 Chloride 106 Carbon Dioxide 27 Anion Gap 9 BUN 13 Creatinine 1.14 Est GFR ( Amer) > 60 Glucose 138 H Calcium 8.9 Total Bilirubin 1.7 H AST 71 H Alkaline Phosphatase 118 Total Protein 6.8 Albumin 3.8 Lipase 83.9 05/28/19 05/28/19 12:30 12:30 Troponin I 0.043 NT-Pro-B Natriuret Pep 64435 H Impressions: Chest X-Ray 05/28/19 12:42 IMPRESSION: CARDIOMEGALY. CHRONIC INTERSTITIAL PROMINENCE. NO APPARENT ACUTE FINDINGS. Abdomen Ultrasound 05/28/19 12:52 IMPRESSION: 1. Fatty liver. 2. Ascites. 3. Pleural effusions. 4. No acute gallbladder disease suspected. Assessment and Plan - Diagnosis (1) Acute systolic heart failure Is this a current diagnosis for this admission?: Yes Plan: Acute systolic heart failure. Most likely due to medication noncompliance. Home medications are: Digoxin 0.125 mg p.o. daily. Lisinopril 5 mg p.o. twice daily. Metoprolol succinate 25 mg p.o. twice daily 12/19/2018. 2D echo ejection fraction 35 to 40%. Diastolic function WNL. Unfortunately patient is noncompliant and does not take any of the above medications. proBNP on admission 12,000. No baseline available. Complaining of orthopnea paroxysmal nocturnal dyspnea. We will start on cardiac diet, strict in and out, digoxin, lisinopril and metoprolol and IV diuretics. Consult discharge planning for possible help with medication administration at home. (2) Acute bronchitis Qualifiers: Bronchitis organism: unspecified organism Qualified Code(s): J20.9 - Acute bronchitis, unspecified Is this a current diagnosis for this admission?: Yes Plan: Acute bronchitis. Empiric IV antibiotics. Sputum and blood culture. (3) Acute respiratory failure with hypoxia Is this a current diagnosis for this admission?: Yes Plan: Mostly due to pneumonia complicated by acute bronchitis. Plan as per #1. (4) History of atrial fibrillation Is this a current diagnosis for this admission?: Yes Plan: Rate controlled. Takes apixaban at home. Resume home meds. Monitor H&H. Fall precaution. Monitor for bleeding. (5) Chest pain Qualifiers: Chest pain type: unspecified Qualified Code(s): R07.9 - Chest pain, unspecified Is this a current diagnosis for this admission?: Yes Plan: Noncardiac. Troponins minimally elevated. Pain is reproducible. This is most likely due to excessive cough Acute Bronchitis. Admit to telemetry. Will trend troponins. PRN morphine and nitroglycerin. (6) Atrial fibrillation Qualifiers: Atrial fibrillation type: paroxysmal Qualified Code(s): I48.0 - Paroxysmal atrial fibrillation Is this a current diagnosis for this admission?: Yes Plan: History of chronic paroxysmal A. fib. Rate controlled. Anticoagulated. Restart home meds.
[2019-05-28] MEDS: LEVOFLOXACIN 500 MG TABLET PO SCH (16:30)
[2019-05-28] MEDS: FUROSEMIDE INJ/PF 40 MG/4 ML SDV IV SCH (16:30)
--- NOTE | 2019-05-28 18:03 | EKG REPORT ---
SEVERITY:- ABNORMAL ECG - SINUS RHYTHM VENTRICULAR PREMATURE COMPLEX ABNRM R PROG, CONSIDER ASMI OR LEAD PLACEMENT BORDERLINE REPOL ABNORMALITY, DIFFUSE LEADS : Confirmed by: Garrison Argueta MD 28-May-2019 18:03:25
[2019-05-28] MEDS: APIXABAN 5 MG TABLET PO SCH (18:30)
[2019-05-28] MEDS: IPRATROPIUM/ALBUTEROL 0.5-2.5 MG/3 ML AMPUL NEB SCH (20:26)
[2019-05-28] MEDS: METOPROLOL SUCCINATE 25 MG TAB.SR.24H PO SCH (21:21)
[2019-05-28] MEDS: FAMOTIDINE 20 MG TABLET PO SCH (21:23)
[2019-05-29] MEDS: FUROSEMIDE INJ/PF 40 MG/4 ML SDV IV SCH (05:18)
[2019-05-29 05:24] LABS: ABSOLUTE BASOPHILS # (AUTO) 0.1 10^3/uL (0.0-0.2); ABSOLUTE LYMPHOCYTES (AUTO) 1.7 10^3/uL (0.5-4.7); ABSOLUTE MONOCYTES (AUTO) 0.6 10^3/uL (0.1-1.4); ABSOLUTE NEUT (AUTO) 3.9 10^3/uL (1.7-8.2); BASOPHILS % (AUTO) 1.1 % (0-2); HEMATOCRIT 37.3 % (37.9-51.0); HEMOGLOBIN 12.2 g/dL (13.5-17.0); LYMPHOCYTES % (AUTO) 26.6 % (13-45); MEAN CORPUSCULAR HEMOGLOBIN 29.7 pg (27.0-33.4); MEAN CORPUSCULAR HGB CONC 32.8 g/dL (32.0-36.0); MEAN CORPUSCULAR VOLUME 91 fl (80-97); MONOCYTES % (AUTO) 9.9 % (3-13); PLATELET COUNT 149 10^3/uL (150-450); RED BLOOD COUNT 4.12 10^6/uL (4.35-5.55); RED CELL DISTRIBUTION WIDTH 17.4 % (11.5-14.0); SEGMENTED NEUTROPHILS % (AUTO) 62.4 % (42-78); TOTAL CELLS COUNTED % (AUTO) 100 %; WHITE BLOOD COUNT 6.2 10^3/uL (4.0-10.5)
[2019-05-29 05:42] LABS: ANION GAP 12 (5-19); BLOOD UREA NITROGEN 16 mg/dL (7-20); CALCIUM 8.8 mg/dL (8.4-10.2); CARBON DIOXIDE 24 mmol/L (22-30); CHLORIDE 106 mmol/L (98-107); GLUCOSE 103 mg/dL (75-110); POTASSIUM 3.9 mmol/L (3.6-5.0)
[2019-05-29] MEDS: IPRATROPIUM/ALBUTEROL 0.5-2.5 MG/3 ML AMPUL NEB SCH ×3 (07:36→19:57)
[2019-05-29] MEDS ORDERED: FENTANYL CITRATE INJ/PF 100 MCG/2 ML AMPUL ONE (09:07)
[2019-05-29] MEDS ORDERED: DEXAMETHASONE SOD PHOSPHATE INJ 4 MG/1 ML VIAL ONE (09:08)
[2019-05-29] MEDS ORDERED: MIDAZOLAM 2 MG/2 ML INJ ONE (09:08)
[2019-05-29] MEDS ORDERED: DEXMEDETOMIDINE INJ 80 MCG/20 ML VIAL IV ONE (09:08)
[2019-05-29] MEDS ORDERED: PROPOFOL INJ 200 MG/20 ML VIAL IV ONE ×2 (09:08→11:55)
[2019-05-29] MEDS ORDERED: ONDANSETRON HCL INJ/PF 4 MG/2 ML SDV ONE (09:08)
--- NOTE | 2019-05-29 09:46 | PDOC PROGRESS REPORT ---
Subjective Progress Note for:: 05/29/19 Subjective:: TAMMY ABREU is a 73 year old male past medical history of hypertension, A. fib RVR, wandering pacemaker, non-oxygen dependent COPD, depression, CAD, presented to ED on 12/2018 for chest pain, had a stress test done which showed multiple reversible ischemic changes, did not receive any intervention, was managed medically, was DNR at that time, was sent home on digoxin, lisinopril, metoprolol and Eliquis for some reason patient has been taking only his Eliquis and Percocet and has not been taking any other medications Today he is presenting today complaining of pleuritic chest pain associated with productive cough. Chest pain is on the left side, sharp, nonradiating, brought on by cough, relieved with no coughing denies any fever, chills, nausea, vomiting, diarrhea, constipation or any urinary symptoms. He is also complaining of orthopnea and paroxysmal nocturnal dyspnea for the last several weeks. Denies any recent travel or sick contacts. Unfortunately patient is not taking any of his cardiac meds except for Xarelto. He is living with his son who is unfortunately also sick. Stating that starting next week he is gone to have a nurse coming in to check on him. In ED it was found that he had elevated proBNP with minimally elevated troponin and hospital was consulted for admission. 05/29/2019. No acute events overnight. Patient complaining of excessive urination since being started on Lasix, chest pain has resolved still having some productive cough, alert and oriented x3 no apparent distress, enjoying his breakfast, denies any fever, chills, nausea, vomiting, diarrhea, constipation or any urinary symptoms. Reason For Visit: ACUTE CHF,CHEST PAIN Physical Exam Vital Signs: Temp Pulse Resp BP Pulse Ox 97.5 F 82 14 149/97 H 100 05/29/19 07:35 05/29/19 07:36 05/29/19 07:36 05/29/19 07:35 05/29/19 07:36 Intake & Output 05/28/19 05/29/19 05/30/19 06:59 06:59 06:59 Intake Total 422 Output Total 400 Balance 22 Weight 65.8 kg General appearance: PRESENT: no acute distress, well-developed, well-nourished Head exam: PRESENT: atraumatic, normocephalic Respiratory exam: PRESENT: clear to auscultation lea. ABSENT: rales, rhonchi, wheezes Cardiovascular exam: PRESENT: RRR. ABSENT: diastolic murmur, rubs, systolic murmur GI/Abdominal exam: PRESENT: normal bowel sounds, soft. ABSENT: distended, guarding, mass, organolmegaly, rebound, tenderness Extremities exam: PRESENT: full ROM. ABSENT: calf tenderness, clubbing, pedal edema Neurological exam: PRESENT: alert, awake, oriented to person, oriented to place, oriented to time, oriented to situation, CN II-XII grossly intact. ABSENT: motor sensory deficit Results Laboratory Results: 05/29/19 04:26 05/29/19 04:26 05/28/19 05/28/19 05/28/19 12:10 12:10 12:30 WBC 4.9 RBC 4.44 Hgb 13.1 L Hct 41.0 MCV 92 MCH 29.5 MCHC 32.0 RDW 17.8 H Plt Count 157 Seg Neutrophils % 71.8 Sodium 141.8 Potassium 3.6 Chloride 106 Carbon Dioxide 27 Anion Gap 9 BUN 13 Creatinine 1.14 Est GFR ( Amer) > 60 Glucose 138 H Calcium 8.9 Total Bilirubin 1.7 H AST 71 H Alkaline Phosphatase 118 Total Protein 6.8 Albumin 3.8 Lipase 83.9 05/29/19 05/29/19 04:26 04:26 WBC 6.2 RBC 4.12 L Hgb 12.2 L Hct 37.3 L MCV 91 MCH 29.7 MCHC 32.8 RDW 17.4 H Plt Count 149 L Seg Neutrophils % 62.4 Sodium 142.0 Potassium 3.9 Chloride 106 Carbon Dioxide 24 Anion Gap 12 BUN 16 Creatinine 1.25 Est GFR ( Amer) > 60 Glucose 103 Calcium 8.8 Total Bilirubin AST Alkaline Phosphatase Total Protein Albumin Lipase 05/28/19 05/28/19 05/28/19 12:30 12:30 20:25 Troponin I 0.043 0.061 NT-Pro-B Natriuret Pep 07041 H 05/29/19 04:26 Troponin I 0.071 NT-Pro-B Natriuret Pep Impressions: Chest X-Ray 05/28/19 12:42 IMPRESSION: CARDIOMEGALY. CHRONIC INTERSTITIAL PROMINENCE. NO APPARENT ACUTE FINDINGS. Abdomen Ultrasound 05/28/19 12:52 IMPRESSION: 1. Fatty liver. 2. Ascites. 3. Pleural effusions. 4. No acute gallbladder disease suspected. Assessment and Plan - Diagnosis (1) Acute systolic heart failure Is this a current diagnosis for this admission?: Yes Plan: Improving. SPO2 WNL on 1 L NC. Orthopnea resolving. Acute systolic heart failure. Most likely due to medication noncompliance. Home medications are: Digoxin 0.125 mg p.o. daily. Lisinopril 5 mg p.o. twice daily. Metoprolol succinate 25 mg p.o. twice daily 12/19/2018. 2D echo ejection fraction 35 to 40%. Diastolic function WNL. Unfortunately patient is noncompliant and does not take any of the above medica tions. proBNP on admission 12,000. No baseline available. Complaining of orthopnea paroxysmal nocturnal dyspnea on admission. Continue cardiac diet, strict in and out, digoxin, lisinopril and metoprolol. Switch IV diuretics to p.o. Consulted discharge planning for home health and nursing information systems coordinator for medication administration at home. (2) Acute bronchitis Qualifiers: Bronchitis organism: unspecified organism Qualified Code(s): J20.9 - Acute bronchitis, unspecified Is this a current diagnosis for this admission?: Yes Plan: Cough is improving. SPO2 WNL on 1 L NC. Acute bronchitis. Day 2 p.o. levofloxacin. Sputum and blood culture. (3) Acute respiratory failure with hypoxia Is this a current diagnosis for this admission?: Yes Plan: Improving. SPO2 WNL on on 1 L NC. Wean off of oxygen if possible. Mostly due to pneumonia complicated by acute bronchitis. Plan as per #1. (4) History of atrial fibrillation Is this a current diagnosis for this admission?: Yes Plan: Rate controlled. Anticoagulated. Continue beta-blockers and apixaban. Resume home meds. Monitor H&H. Fall precaution. Monitor for bleeding. (5) Chest pain Qualifiers: Chest pain type: unspecified Qualified Code(s): R07.9 - Chest pain, unspecified Is this a current diagnosis for this admission?: Yes Plan: Resolved. Noncardiac. Troponins minimally elevated. Pain is reproducible. This is most likely due to excessive cough Acute Bronchitis. Admit to telemetry. Will trend troponins. PRN morphine and nitroglycerin. Continue JESSICA, beta-blockers, statins and antiplatelets. Discussed the case with Dr. Santos his household personal assistant who stated that he does not think this is ACS and he will see patient tomorrow. Cardiology consult has been placed.
[2019-05-29] MEDS ORDERED: INFLUENZA QUAD (6MOS+) 2019-20 VAC 0.5 ML SYR IM ONE (10:00)
[2019-05-29] MEDS: DIGOXIN 0.125 MG TABLET PO SCH (10:04)
[2019-05-29] MEDS: GUAIFENESIN 600 MG TABLET.SA PO SCH ×2 (10:05→21:49)
[2019-05-29] MEDS: FAMOTIDINE 20 MG TABLET PO SCH ×2 (10:05→21:49)
[2019-05-29] MEDS: METOPROLOL SUCCINATE 25 MG TAB.SR.24H PO SCH ×2 (10:05→21:49)
[2019-05-29] MEDS: APIXABAN 5 MG TABLET PO SCH ×2 (10:06→17:59)
[2019-05-29] MEDS: LISINOPRIL 5 MG TABLET PO SCH (10:06)
[2019-05-29] MEDS: FUROSEMIDE 40 MG TABLET PO SCH ×2 (10:12→17:59)
[2019-05-29] MEDS: DOCUSATE SODIUM 100 MG/10 ML UDC PO SCH (14:38)
[2019-05-29] MEDS: LEVOFLOXACIN 500 MG TABLET PO SCH (17:59)
[2019-05-29] MEDS: ASPIRIN 81 MG TABLET, CHEWABLE PO SCH (18:03)
[2019-05-29] MEDS: ATORVASTATIN CALCIUM 40 MG TABLET PO SCH (21:49)
[2019-05-29] MEDS: NICOTINE 14 MG/24 HR PATCH.TD24 TD SCH (21:50)
[2019-05-30 05:22] LABS: ABSOLUTE LYMPHOCYTES (AUTO) 1.7 10^3/uL (0.5-4.7); ABSOLUTE MONOCYTES (AUTO) 0.9 10^3/uL (0.1-1.4); ABSOLUTE NEUT (AUTO) 4.3 10^3/uL (1.7-8.2); BASOPHILS % (AUTO) 0.7 % (0-2); EOSINOPHILS % (AUTO) 0.2 % (0-6); HEMATOCRIT 37.1 % (37.9-51.0); HEMOGLOBIN 12.2 g/dL (13.5-17.0); LYMPHOCYTES % (AUTO) 23.9 % (13-45); MEAN CORPUSCULAR HEMOGLOBIN 29.8 pg (27.0-33.4); MEAN CORPUSCULAR VOLUME 91 fl (80-97); MONOCYTES % (AUTO) 13.2 % (3-13); PLATELET COUNT 138 10^3/uL (150-450); RED CELL DISTRIBUTION WIDTH 17.2 % (11.5-14.0); TOTAL CELLS COUNTED % (AUTO) 100 %
[2019-05-30 05:47] LABS: ANION GAP 11 (5-19); BLOOD UREA NITROGEN 21 mg/dL (7-20); CALCIUM 8.8 mg/dL (8.4-10.2); CARBON DIOXIDE 25 mmol/L (22-30); CHLORIDE 104 mmol/L (98-107); GLUCOSE 88 mg/dL (75-110); POTASSIUM 3.6 mmol/L (3.6-5.0)
[2019-05-30 05:52] LABS: DIGOXIN < 0.40 ng/mL (0.8-2.0)
[2019-05-30] MEDS: IPRATROPIUM/ALBUTEROL 0.5-2.5 MG/3 ML AMPUL NEB SCH ×3 (08:02→19:45)
[2019-05-30] MEDS: FUROSEMIDE 40 MG TABLET PO SCH (09:07)
[2019-05-30] MEDS: GUAIFENESIN 600 MG TABLET.SA PO SCH ×2 (09:07→22:18)
[2019-05-30] MEDS: DOCUSATE SODIUM 100 MG/10 ML UDC PO SCH (09:07)
[2019-05-30] MEDS: FAMOTIDINE 20 MG TABLET PO SCH ×2 (09:07→22:18)
[2019-05-30] MEDS: DIGOXIN 0.125 MG TABLET PO SCH (09:07)
[2019-05-30] MEDS: ASPIRIN 81 MG TABLET, CHEWABLE PO SCH (09:07)
[2019-05-30] MEDS: APIXABAN 5 MG TABLET PO SCH ×2 (09:07→17:37)
[2019-05-30] MEDS: LISINOPRIL 5 MG TABLET PO SCH ×2 (09:08→22:17)
[2019-05-30] MEDS: METOPROLOL SUCCINATE 25 MG TAB.SR.24H PO SCH ×2 (09:08→22:17)
--- NOTE | 2019-05-30 14:28 | PDOC PROGRESS REPORT ---
Subjective Progress Note for:: 05/30/19 Subjective:: The patient is sitting in the chair. He states that he is having trouble controlling his urine on the furosemide. He reports that his left knee gives out on him any falls frequently at home. He states his knee has not been the same since he had it replaced. Reason For Visit: ACUTE CHF,CHEST PAIN Physical Exam Vital Signs: Temp Pulse Resp BP Pulse Ox 98.0 F 82 16 141/73 H 97 05/30/19 12:00 05/30/19 14:00 05/30/19 13:49 05/30/19 12:00 05/30/19 13:49 Intake & Output 05/29/19 05/30/19 05/31/19 06:59 06:59 06:59 Intake Total 422 466 480 Output Total 400 300 Balance 22 166 480 Weight 65.8 kg 63.5 kg General appearance: PRESENT: no acute distress, cooperative, well-developed Head exam: PRESENT: atraumatic, normocephalic Eye exam: PRESENT: conjunctiva pink. ABSENT: scleral icterus Ear exam: PRESENT: normal external ear exam. ABSENT: bleeding, drainage Mouth exam: PRESENT: dry mucosa, tongue midline Respiratory exam: PRESENT: clear to auscultation lea, symmetrical, unlabored. ABSENT: rales, rhonchi, tachypnea, wheezes Cardiovascular exam: PRESENT: +S1, +S2, systolic murmur - 2/6, other - S4. Occasional irregular beats. GI/Abdominal exam: PRESENT: normal bowel sounds, soft. ABSENT: distended, guarding, tenderness Rectal exam: PRESENT: deferred Extremities exam: ABSENT: pedal edema Neurological exam: PRESENT: alert, awake, oriented to person, oriented to place, oriented to situation, CN II-XII grossly intact Psychiatric exam: PRESENT: flat affect. ABSENT: agitated, anxious Skin exam: PRESENT: dry, normal color, warm. ABSENT: rash Results Laboratory Results: 05/30/19 03:54 05/30/19 03:54 05/30/19 05/30/19 03:54 03:54 WBC 7.0 RBC 4.10 L Hgb 12.2 L Hct 37.1 L MCV 91 MCH 29.8 MCHC 33.0 RDW 17.2 H Plt Count 138 L Seg Neutrophils % 62.0 Sodium 140.2 Potassium 3.6 Chloride 104 Carbon Dioxide 25 Anion Gap 11 BUN 21 H Creatinine 1.40 H Est GFR ( Amer) > 60 Glucose 88 Calcium 8.8 05/28/19 05/28/19 05/28/19 12:30 12:30 20:25 Troponin I 0.043 0.061 NT-Pro-B Natriuret Pep 48776 H 05/29/19 05/29/19 04:26 12:35 Troponin I 0.071 0.058 NT-Pro-B Natriuret Pep Impressions: Chest X-Ray 05/28/19 12:42 IMPRESSION: CARDIOMEGALY. CHRONIC INTERSTITIAL PROMINENCE. NO APPARENT ACUTE FINDINGS. Abdomen Ultrasound 05/28/19 12:52 IMPRESSION: 1. Fatty liver. 2. Ascites. 3. Pleural effusions. 4. No acute gallbladder disease suspected. Assessment and Plan - Diagnosis (1) Acute systolic heart failure Is this a current diagnosis for this admission?: Yes Plan: Improving. SPO2 WNL on 1 L NC. Orthopnea resolving. Acute systolic heart failure. Most likely due to medication noncompliance. Home medications are: Digoxin 0.125 mg p.o. daily. Lisinopril 5 mg p.o. twice daily. Metoprolol succinate 25 mg p.o. twice daily 12/19/2018. 2D echo ejection fraction 35 to 40%. Diastolic function WNL. Unfortunately patient is noncompliant and does not take any of the above medications. proBNP on admission 12,000. No baseline available. Complaining of orthopnea paroxysmal nocturnal dyspnea on admission. Continue cardiac diet, strict in and out, digoxin, lisinopril and metoprolol. Switch IV diuretics to p.o. Consulted discharge planning for home health and state tested nursing assistant for medication administration at home. 10/28/2019-we will continue current medication regimen which includes diuretic, JESSICA inhibitor, beta-arelis and digoxin. Symptoms have improved significantly. (2) Acute bronchitis Qualifiers: Bronchitis organism: unspecified organism Qualified Code(s): J20.9 - Acute bronchitis, unspecified Is this a current diagnosis for this admission?: Yes Plan: Cough is improving. SPO2 WNL on 1 L NC. Acute bronchitis. Day 2 p.o. levofloxacin. Sputum and blood culture. 10/28/2019-continue levofloxacin therapy. (3) Acute respiratory failure with hypoxia Is this a current diagnosis for this admission?: Yes Plan: Improving. SPO2 WNL on on 1 L NC. Wean off of oxygen if possible. Mostly due to pneumonia complicated by acute bronchitis. Plan as per #1. 10/28/2019-most likely due to heart failure. The patient did not have an elevated white blood cell count, he did not have a fever in the chest x-ray did not suggest an acute infiltrate. Continue antibiotics for bronchitis. Respiratory failure has resolved. (4) Longstanding persistent atrial fibrillation Is this a current diagnosis for this admission?: Yes Plan: 10/28/2019-continue metoprolol, digoxin and anticoagulation with Eliquis (5) Acute kidney injury Is this a current diagnosis for this admission?: Yes Plan: 10/28/2019-the patient's BUN and creatinine are slightly elevated today. This is likely due to aggressive diuresis. I will back down on his furosemide to once daily dosing and continue to monitor renal function. (6) Multiple falls Is this a current diagnosis for this admission?: Yes Plan: 05/30/2019-the patient reports a very unsteady gait. He uses a cane to walk. He states that ever since he had surgery on his left knee he has had difficulty walking with multiple falls. He states that his knee just gives out on him. I am going to have physical therapy assess. (7) Noncompliance with medication regimen Is this a current diagnosis for this admission?: Yes Plan: The patient has history of noncompliance. In fact I believe the time of admission he had not been taking any of the medications prescribed to him. (8) Nonspecific chest pain Is this a current diagnosis for this admission?: Yes Plan: Resolved. Likely due to heart failure. No significant elevation of troponins noted. - Time Time Spent with patient: 15-24 minutes Medications reviewed and adjusted accordingly: Yes
[2019-05-30] MEDS: NICOTINE 14 MG/24 HR PATCH.TD24 TD SCH (17:36)
[2019-05-30] MEDS: LEVOFLOXACIN 500 MG TABLET PO SCH (17:37)
[2019-05-30] MEDS: OXYCODONE-ACETAMINOPHEN 5-325 MG TABLET PO PRN (18:33)
--- NOTE | 2019-05-30 19:10 | PDOC CONSULTATION ---
Consultation-Blank Consultation: CARDIOLOGY CONSULTATION by Dr. Alina Raymundo. Patient seen at 8 AM. 60 minutes spent as patient more than 50% of time spent in direct patient care. REASON FOR CONSULTATION: Patient admitted with noncardiac chest pain with borderline elevation of troponin. Patient does have a history of coronary artery disease and history of cardiomyopathy. CONSULT REQUESTING PHYSICIAN: , [facility]. HISTORY OF PRESENT ILLNESS: Patient not a very good historian. Patient was admitted with the chief complaint of chest pain which included increased with deep breathing and was sharp in nature [pleuritic open]. With the cough productive of yellowish sputum. The patient is a smoker and does have COPD. He did have orthopnea.. There is no leg edema or PND. There is no clear-cut anginal symptoms. The patient does have a history of coronary artery disease. History of cardiomyopathy with LV ejection fraction 35 to 40% with prior history of CHF. He continues to smoke. At present denies any chest pain or discomfort. He states his shortness of breath is much improved. He does have some mild orthopnea. But no PND. There is no palpitation. There is no arrhythmia seen on the monitor. There is no dizziness or syncope or near syncope. Past Medical History Cardiac Medical History: Reports: Hyperlipidema, Hypertension - On no blood pressure medications because he says all of them drop his press. He was admitted here in December 2018 with congestive heart failure and atrial fibrillation with rapid rapid ventricular response and converted to sinus rhythm. He since then has claims no palpitations. At present the patient is in sinus mechanism. Pulmonary Medical History: Reports: Asthma, Chronic Obstructive Pulmonary Disease (COPD) Neurological Medical History: Denies: Seizures Psychiatric Medical History: Denies: Depression Past Surgical History Past Surgical History: Reports: Orthopedic Surgery - Left TKR Social History Smoking Status: Current Every Day Smoker Electronic Cigarette use?: No Frequency of Alcohol Use: None Hx Recreational Drug Use: Yes Drugs: Marijuana Hx Prescription Drug Abuse: No Family History Family History: Positive for hypertension Parental Family History Reviewed: Yes Children Family History Reviewed: Yes Sibling(s) Family History Reviewed.: Yes Medication/Allergy Home Medications: Quetiapine Fumarate [Seroquel] 300 mg PO QHS 12/19/18 Hydrocodone/Acetaminophen [[place] 10-325 Tablet] 1 each PO Q8HP PRN 05/28/19 Ranitidine HCl [Zantac] 150 mg PO BID 05/28/19 Allergies/Adverse Reactions: No Known Allergies Allergy (Verified 05/28/19 11:39) Review of Systems Constitutional: PRESENT: fatigue, weakness. ABSENT: fever(s) Eyes: ABSENT: visual disturbances Ears: ABSENT: hearing changes Nose, Mouth, and Throat: ABSENT: sore throat Cardiovascular: PRESENT: chest pain. ABSENT: dyspnea on exertion, orthropnea, palpitations Respiratory: PRESENT: cough. Productive of yellowish-green sputum. No hemoptysis. Gastrointestinal: PRESENT: nausea, other - Decreased appetite Musculoskeletal: ABSENT: joint swelling Neurological: ABSENT: abnormal gait, abnormal speech, confusion, dizziness, focal weakness, syncope Psychiatric: ABSENT: anxiety, depression, homidical ideation, suicidal ideation. Current Medications Generic Name Dose Route Start Last Admin Trade Name Freq PRN Reason Stop Dose Admin Acetaminophen 325 mg 05/28/19 14:57 Tylenol 325 Mg Tablet PO 06/27/19 14:56 Q4HP PRN FEVER >101 Albuterol/Ipratropium 3 ml 05/28/19 20:00 05/30/19 19:45 Duoneb 3 Ml Ampul NEB 06/27/19 19:59 3 ml [id number] LINDSAY Administration Apixaban 5 mg 05/28/19 18:00 05/30/19 17:37 Eliquis 5 Mg Tablet PO 06/27/19 17:59 5 mg BID LINDSAY Administration Aspirin 81 mg 05/29/19 17:45 05/30/19 09:07 Aspirin 81 Mg Chewable Tablet PO 06/28/19 17:44 81 mg DAILY LINDSAY Administration Atorvastatin Calcium 40 mg 05/29/19 22:00 05/29/19 21:49 Lipitor 40 Mg Tablet PO 06/28/19 21:59 40 mg QHS LINDSAY Administration Digoxin 0.125 mg 05/29/19 10:00 05/30/19 09:07 Lanoxin 0.125 Mg Tablet PO 06/28/19 09:59 0.125 mg DAILY LINDSAY Administration Docusate Sodium 100 mg 05/29/19 10:00 05/30/19 09:07 Colace Udc 100 Mg/10 Ml Oral Soln PO 06/28/19 09:59 Not Given DAILY LINDSAY Famotidine 20 mg 05/28/19 22:00 05/30/19 09:07 Pepcid 20 Mg Tablet PO 06/27/19 21:59 20 mg Q12 LINDSAY Administration Furosemide 40 mg 05/31/19 10:00 Lasix 40 Mg Tablet PO 06/30/19 09:59 DAILY LINDSAY Guaifenesin 600 mg 05/29/19 10:00 05/30/19 09:07 Mucinex Sr 600 Mg Tablet.Sa PO 06/28/19 09:59 600 mg Q12 LINDSAY Administration Levofloxacin 500 mg 05/28/19 16:00 05/30/19 17:37 Levaquin 500 Mg Tablet PO 06/04/19 15:59 500 mg QPM LINDSAY Administration Lisinopril 2.5 mg 05/29/19 10:00 05/30/19 09:08 Prinivil 5 Mg Tablet PO 06/28/19 09:59 2.5 mg DAILY LINDSAY Administration Metoprolol Succinate 12.5 mg 05/28/19 22:00 05/30/19 09:08 Toprol Xl 25 Mg Tab.Sr PO 06/27/19 21:59 12.5 mg Q12 LINDSAY Administration Nicotine 1 each 05/29/19 18:00 05/30/19 17:36 Nicoderm 14 Mg/24 Hr Transdermal Patch TD 06/28/19 17:59 Not Given QPM LINDSAY Oxycodone/Acetaminophen 1 tab 05/28/19 14:57 05/30/19 18:33 Percocet 5-325 Mg Tablet PO 06/04/19 14:56 1 tab Q4HP PRN Administration FOR PAIN SCALE 3-5 Quetiapine Fumarate 300 mg 05/30/19 22:00 Seroquel 100 Mg Tablet PO 06/29/19 21:59 QHS LINDSAY Temazepam 15 mg 05/28/19 14:57 05/29/19 21:51 Restoril 15 Mg Capsule PO 06/04/19 14:56 15 mg HSP PRN Administration SLEEP OR INSOMNIA Discontinued Medications Generic Name Dose Route Start Last Admin Trade Name Freq PRN Reason Stop Dose Admin Dexamethasone Sodium Phosphate Confirm 05/29/19 09:08 Decadron Inj 4 Mg/Ml Vial Administered 05/29/19 09:09 Dose 4 mg .ROUTE .STK-MED ONE Dexmedetomidine HCl Confirm 05/29/19 09:08 Precedex Inj 80 Mcg/20 Ml Vial Administered 05/29/19 09:09 Dose 80 mcg IV .STK-MED ONE Fentanyl Citrate Confirm 05/29/19 09:07 Sublimaze Inj/Pf 100 Mcg/2 Ml Ampule Administered 05/29/19 09:08 Dose 100 mcg .ROUTE .STK-MED ONE Furosemide 40 mg 05/28/19 16:00 05/29/19 05:18 Lasix Inj/Pf 40 Mg/4 Ml Sdv IV 06/27/19 15:59 40 mg Q12A LINDSAY Administration Furosemide 40 mg 05/29/19 10:00 05/30/19 09:07 Lasix 40 Mg Tablet PO 06/28/19 09:59 40 mg BID LINDSAY Administration Influenza Virus Vaccine Quadrival 0.5 ml 05/29/19 10:00 Flulaval Quad Vac 0.5 Ml Syr IM 05/29/19 10:01 .ONCE ONE Midazolam HCl Confirm 05/29/19 09:08 Versed 2 Mg/2 Ml Inj Administered 05/29/19 09:09 Dose 2 mg .ROUTE .STK-MED ONE Ondansetron HCl 4 mg 05/28/19 12:44 05/28/19 13:00 Zofran Inj/Pf 4 Mg/2 Ml Sdv IV 05/28/19 12:45 4 mg NOW ONE Administration Ondansetron HCl Confirm 05/29/19 09:08 Zofran Inj/Pf 4 Mg/2 Ml Sdv Administered 05/29/19 09:09 Dose 4 mg .ROUTE .STK-MED ONE Propofol Confirm 05/29/19 09:08 Diprivan Inj 200 Mg/20 Ml Vial Administered 05/29/19 09:09 Dose 200 mg IV .STK-MED ONE Propofol Confirm 05/29/19 11:55 Diprivan Inj 200 Mg/20 Ml Vial Administered 05/29/19 11:56 Dose 200 mg IV .STK-MED ONE PHYSICAL EXAMINATION:. Patient appears to be chronically ill and malnourished. Selected Entries 05/30/19 05/30/19 05/30/19 08:03 08:08 09:00 Temperature 97.5 F Temperature Oral Source Heart Rate ( 86 Monitors) Respiratory 18 Rate Blood Pressure 144/96 H Blood Pressure 112 Mean BP Location Right Arm BP Position Supine O2 Sat by Pulse 96 Oximetry Fraction of 21 Inspired Oxygen (FIO2) Oxygen Delivery Room Air Method HEAD: Is atraumatic normocephalic. EYES: Pupils equal round regular reactive to light accommodation. Extraocular movements are normal. There is no conjunctival pallor. There is no scleral icterus. EARS: Tympanic membranes are intact. External auditory canals are clear. NOSE: There is no deviated nasal septum. There is no inflammation of the nasal mucous membrane. MOUTH: Mucous membranes of mouth are moist. Tongue is moist. There is no bleeding from the gums. THROAT: There is no redness of the oropharynx. There is no exudates. SKIN: There is no skin rashes or skin lesions. There is no petechia or e cchymosis. NECK: There is no JVD. Carotids are equal there is no bruit. There is no lymphadenopathy. There is no goiter. There is no accessory muscle respiration use.. Trachea is central. LUNGS: Shows diminished air entry prolonged expiration. There is few scattered rhonchi. There is no rhonchi. There are a few dry crackles bilaterally. Especially in the bases.. On percussion there is hyperresonance. HEART: When the patient was in atrial fibrillation S1-S2 is normal. Normal S1 intensity. There is murmur of mitral regurgitation present. There is no S3 gallop. There is no S4 gallop. Subsequent to the patient converting to sinus rhythm S1 is of normal intensity with the other findings remaining the same. There was no rub. ABDOMEN: Soft bowel sounds well heard. There is no hepatospleno megaly. Bowel sounds well heard. EXTREMITY is: Femorals are diminished. There is no femoral bruits. Leg pulses are diminished. There is no pedal edema. There is no DVT escalators. There is no calf tenderness. TENTER FRAME BACK TENDER: The patient is conscious awake alert oriented x3 with no focal deficits. PSYCHIATRIC: The patient judgment insight are intact his affect is normal.His judgement is intact. SINUS RHYTHM [VPC] . VENTRICULAR PREMATURE COMPLEX [AMI4] . ABNRM R PROG, CONSIDER ASMI OR LEAD PLACEMENT [REPBDI] . BORDERLINE REPOL ABNORMALITY, DIFFUSE LEADS Labs- Entire Visit 05/28/19 05/28/19 05/28/19 12:10 12:10 12:10 WBC 4.9 RBC 4.44 Hgb 13.1 L Hct 41.0 MCV 92 MCH 29.5 MCHC 32.0 RDW 17.8 H Plt Count 157 Lymph % (Auto) 18.3 Stokes % (Auto) 8.6 Eos % (Auto) 0.3 Baso % (Auto) 1.0 Absolute Neuts (auto) 3.5 Absolute Lymphs (auto) 0.9 Absolute Monos (auto) 0.4 Absolute Eos (auto) 0.0 Absolute Basos (auto) 0.0 Seg Neutrophils % 71.8 Sodium 141.8 Potassium 3.6 Chloride 106 Carbon Dioxide 27 Anion Gap 9 BUN 13 Creatinine 1.14 Est GFR ( Amer) > 60 Est GFR (MDRD) Non-Af > 60 Glucose 138 H Calcium 8.9 Total Bilirubin 1.7 H Direct Bilirubin 0.4 Neonat Total Bilirubin Not Reportable Neonat Direct Bilirubin Not Reportable Neonat Indirect Bili Not Reportable AST 71 H ALT 109 H Alkaline Phosphatase 118 Troponin I NT-Pro-B Natriuret Pep Total Protein 6.8 Albumin 3.8 Lipase Digoxin Influenza A (Rapid) NEGATIVE Influenza B (Rapid) NEGATIVE 05/28/19 05/28/19 05/28/19 12:30 12:30 12:30 WBC RBC Hgb Hct MCV MCH MCHC RDW Plt Count Lymph % (Auto) Stokes % (Auto) Eos % (Auto) Baso % (Auto) Absolute Neuts (auto) Absolute Lymphs (auto) Absolute Monos (auto) Absolute Eos (auto) Absolute Basos (auto) Seg Neutrophils % Sodium Potassium Chloride Carbon Dioxide Anion Gap BUN Creatinine Est GFR ( Amer) Est GFR (MDRD) Non-Af Glucose Calcium Total Bilirubin Direct Bilirubin Neonat Total Bilirubin Neonat Direct Bilirubin Neonat Indirect Bili AST ALT Alkaline Phosphatase Troponin I 0.043 NT-Pro-B Natriuret Pep 36035 H Total Protein Albumin Lipase 83.9 Digoxin Influenza A (Rapid) Influenza B (Rapid) 05/28/19 05/29/19 05/29/19 20:25 04:26 04:26 WBC 6.2 RBC 4.12 L Hgb 12.2 L Hct 37.3 L MCV 91 MCH 29.7 MCHC 32.8 RDW 17.4 H Plt Count 149 L Lymph % (Auto) 26.6 Stokes % (Auto) 9.9 Eos % (Auto) 0.0 Baso % (Auto) 1.1 Absolute Neuts (auto) 3.9 Absolute Lymphs (auto) 1.7 Absolute Monos (auto) 0.6 Absolute Eos (auto) 0.0 Absolute Basos (auto) 0.1 Seg Neutrophils % 62.4 Sodium Potassium Chloride Carbon Dioxide Anion Gap BUN Creatinine Est GFR ( Amer) Est GFR (MDRD) Non-Af Glucose Calcium Total Bilirubin Direct Bilirubin Neonat Total Bilirubin Neonat Direct Bilirubin Neonat Indirect Bili AST ALT Alkaline Phosphatase Troponin I 0.061 0.071 NT-Pro-B Natriuret Pep Total Protein Albumin Lipase Digoxin Influenza A (Rapid) Influenza B (Rapid) 05/29/19 05/29/19 05/30/19 04:26 12:35 03:54 WBC 7.0 RBC 4.10 L Hgb 12.2 L Hct 37.1 L MCV 91 MCH 29.8 MCHC 33.0 RDW 17.2 H Plt Count 138 L Lymph % (Auto) 23.9 Stokes % (Auto) 13.2 H Eos % (Auto) 0.2 Baso % (Auto) 0.7 Absolute Neuts (auto) 4.3 Absolute Lymphs (auto) 1.7 Absolute Monos (auto) 0.9 Absolute Eos (auto) 0.0 Absolute Basos (auto) 0.0 Seg Neutrophils % 62.0 Sodium 142.0 Potassium 3.9 Chloride 106 Carbon Dioxide 24 Anion Gap 12 BUN 16 Creatinine 1.25 Est GFR ( Amer) > 60 Est GFR (MDRD) Non-Af 57 L Glucose 103 Calcium 8.8 Total Bilirubin Direct Bilirubin Neonat Total Bilirubin Neonat Direct Bilirubin Neonat Indirect Bili AST ALT Alkaline Phosphatase Troponin I 0.058 NT-Pro-B Natriuret Pep Total Protein Albumin Lipase Digoxin Influenza A (Rapid) Influenza B (Rapid) 05/30/19 03:54 WBC RBC Hgb Hct MCV MCH MCHC RDW Plt Count Lymph % (Auto) Stokes % (Auto) Eos % (Auto) Baso % (Auto) Absolute Neuts (auto) Absolute Lymphs (auto) Absolute Monos (auto) Absolute Eos (auto) Absolute Basos (auto) Seg Neutrophils % Sodium 140.2 Potassium 3.6 Chloride 104 Carbon Dioxide 25 Anion Gap 11 BUN 21 H Creatinine 1.40 H Est GFR ( Amer) > 60 Est GFR (MDRD) Non-Af 50 L Glucose 88 Calcium 8.8 Total Bilirubin Direct Bilirubin Neonat Total Bilirubin Neonat Direct Bilirubin Neonat Indirect Bili AST ALT Alkaline Phosphatase Troponin I NT-Pro-B Natriuret Pep Total Protein Albumin Lipase Digoxin < 0.40 L Influenza A (Rapid) Influenza B (Rapid) Chest X-Ray 05/28/19 12:42 IMPRESSION: CARDIOMEGALY. CHRONIC INTERSTITIAL PROMINENCE. NO APPARENT ACUTE FINDINGS. Abdomen Ultrasound 05/28/19 12:52 IMPRESSION: 1. Fatty liver. 2. Ascites. 3. Pleural effusions. 4. No acute gallbladder disease suspected. The patient's echocardiogram during his December 2018 admission showed LV ejection fraction being 35 to 40%. The patient's IV Lexiscan Cardiolite stress test on 12/22/2018 showed no reversible ischemia. There is scintigraphic e vidence of myocardial infarction/scar involving the left ventricle apex the apical anterior and apical lateral the mid anterior and the apical anterior and the distal lateral monreal. Dilated LV ejection fraction with a EF of 21%. IMPRESSION/RECOMMENDATION: 1. Borderline elevation of troponin high levels. No evidence of non-ST elevation NH. Borderline elevation of troponin I secondary to patient's acute infection, cardiomyopathy and acute exacerbation of COPD. Would not treat this as a non-ST elevation NH. We will treat the underlying cause. 2. Acute exacerbation of COPD: Much improved. Continue anti-COPD medication. 3. Possible pneumonia: Continue antibiotics. 4. History of hypertension: At present blood pressure well controlled 5. History of coronary artery disease. Prior history of stent placement and prior history of NH. No definite anginal symptoms. Continue Toprol-XL. Continue aspirin 6. 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 Recommend continue Toprol-XL. Recommend increasing as tolerated. Continue digoxin.. Continue Lasix. Would recommend rechecking the patient's echo. 7. History of paroxysmal atrial fibrillation: No recent recurrence. Continue Eliquis. 8. Tobacco abuse disorder: Tobacco cessation counseling given 3 minutes spent on this. 9. Possible depression: Continue anti-psychiatric medication. 10. Hyperlipidemia: Continue statin. Will be cautious in monitoring the patient liver function test. Medications reviewed. Medications adjusted. Medical management and management plan discussed with attending provider on the case. Medical decision making is of high complexity. 60 minutes spent as patient more than 50% of time spent in direct patient care. Will follow.
[2019-05-30] MEDS ORDERED: (PENDING PHARMACY ID) (Quetiapine Fumarate [Seroquel] 300 MG) PO SCH (22:00)
[2019-05-30] MEDS: QUETIAPINE FUMARATE 100 MG TABLET PO SCH (22:16)
[2019-05-30] MEDS: ATORVASTATIN CALCIUM 40 MG TABLET PO SCH (22:17)
[2019-05-31 05:11] LABS: ALBUMIN 2.9 g/dL (3.5-5.0); ALKALINE PHOSPHATASE 203 U/L (38-126); ANION GAP 10 (5-19); ASPARTATE AMINO TRANSFERASE 211 U/L (17-59); BILIRUBIN,DIRECT 0.8 mg/dL (0.0-0.4); BILIRUBIN,TOTAL 1.2 mg/dL (0.2-1.3); BLOOD UREA NITROGEN 23 mg/dL (7-20); CALCIUM 8.4 mg/dL (8.4-10.2); CARBON DIOXIDE 28 mmol/L (22-30); CHLORIDE 103 mmol/L (98-107); GLUCOSE 100 mg/dL (75-110); POTASSIUM 3.4 mmol/L (3.6-5.0); TOTAL PROTEIN 5.7 g/dL (6.3-8.2)
[2019-05-31] MEDS: IPRATROPIUM/ALBUTEROL 0.5-2.5 MG/3 ML AMPUL NEB SCH ×3 (07:55→19:57)
[2019-05-31] MEDS ORDERED: POTASSIUM CHLORIDE 10 MEQ TABLET.ER PO ONE (09:49)
--- NOTE | 2019-05-31 09:55 | PDOC PROGRESS REPORT ---
Subjective Progress Note for:: 05/31/19 Subjective:: Patient is sleepy but awakens to verbal stimulus. No complaints this morning except being tired Reason For Visit: ACUTE CHF,CHEST PAIN Physical Exam Vital Signs: Temp Pulse Resp BP Pulse Ox 97.4 F 72 17 112/82 100 05/31/19 08:03 05/31/19 08:03 05/31/19 08:03 05/31/19 08:03 05/31/19 08:03 Intake & Output 05/30/19 05/31/19 06/01/19 06:59 06:59 06:59 Intake Total 466 480 Output Total 300 100 Balance 166 380 Weight 63.5 kg 63.2 kg General appearance: PRESENT: no acute distress, cooperative, thin, well- developed Head exam: PRESENT: atraumatic, normocephalic Ear exam: PRESENT: normal external ear exam. ABSENT: bleeding, drainage Respiratory exam: PRESENT: decreased breath sounds - Right base otherwise clear, symmetrical, unlabored. ABSENT: rales, rhonchi, tachypnea, wheezes Cardiovascular exam: PRESENT: irregular rhythm GI/Abdominal exam: PRESENT: normal bowel sounds, soft. ABSENT: distended, guarding, tenderness Rectal exam: PRESENT: deferred Gentrourinary exam: ABSENT: indwelling catheter Extremities exam: ABSENT: pedal edema Musculoskeletal exam: PRESENT: other. ABSENT: deformity Neurological exam: PRESENT: awake, oriented to person, oriented to place, oriented to situation. ABSENT: alert Psychiatric exam: PRESENT: flat affect. ABSENT: agitated, anxious Results Laboratory Results: 05/30/19 03:54 05/31/19 03:48 05/31/19 03:48 Sodium 140.6 Potassium 3.4 L Chloride 103 Carbon Dioxide 28 Anion Gap 10 BUN 23 H Creatinine 1.19 Est GFR ( Amer) > 60 Glucose 100 Calcium 8.4 Magnesium 2.0 Total Bilirubin 1.2 AST 211 H Alkaline Phosphatase 203 H Total Protein 5.7 L Albumin 2.9 L 05/28/19 05/28/19 05/28/19 12:30 12:30 20:25 Troponin I 0.043 0.061 NT-Pro-B Natriuret Pep 23598 H 05/29/19 05/29/19 04:26 12:35 Troponin I 0.071 0.058 NT-Pro-B Natriuret Pep Impressions: Chest X-Ray 05/28/19 12:42 IMPRESSION: CARDIOMEGALY. CHRONIC INTERSTITIAL PROMINENCE. NO APPARENT ACUTE FINDINGS. Abdomen Ultrasound 05/28/19 12:52 IMPRESSION: 1. Fatty liver. 2. Ascites. 3. Pleural effusions. 4. No acute gallbladder disease suspected. Assessment and Plan - Diagnosis (1) Acute systolic heart failure Is this a current diagnosis for this admission?: Yes (2) Acute bronchitis Qualifiers: Bronchitis organism: unspecified organism Qualified Code(s): J20.9 - Acute bronchitis, unspecified Is this a current diagnosis for this admission?: Yes (3) Acute respiratory failure with hypoxia Is this a current diagnosis for this admission?: Yes (4) Longstanding persistent atrial fibrillation Is this a current diagnosis for this admission?: Yes (5) Acute kidney injury Is this a current diagnosis for this admission?: Yes (6) Multiple falls Is this a current diagnosis for this admission?: Yes (7) Noncompliance with medication regimen Is this a current diagnosis for this admission?: Yes (8) Nonspecific chest pain Is this a current diagnosis for this admission?: Yes (11) Hypokalemia Is this a current diagnosis for this admission?: Yes (12) Hypoalbuminemia Is this a current diagnosis for this admission?: Yes - Plan Summary Summary: 05/31/2019 The patient still has pleural effusions right greater than left. This is likely related to his heart failure. He is on diuretic therapy and heart failure is improved. No thoracentesis at this time. Low albumin is also a contributory factor. The patient likely has hypoalbuminemia secondary to poor intake and chronic illness. He did have hypokalemia likely a result of the diuresis. I have started potassium therapy. His transaminases were up today. There is no obvious offending agent. He does have steatohepatitis. I have ordered a lipid panel. Longstanding persistent atrial fibrillation. Is in sinus rhythm with multiple PVCs. Rate is adequately controlled. Acute kidney injury and acute respiratory failure with hypoxia have resolved. - Time Time Spent with patient: 15-24 minutes Medications reviewed and adjusted accordingly: Yes Anticipated discharge: Home
[2019-05-31] MEDS ORDERED: FUROSEMIDE 40 MG TABLET PO SCH (10:00)
[2019-05-31] MEDS: METOPROLOL SUCCINATE 25 MG TAB.SR.24H PO SCH ×3 (10:25→22:57)
[2019-05-31] MEDS: APIXABAN 5 MG TABLET PO SCH ×2 (10:25→17:45)
[2019-05-31] MEDS: LISINOPRIL 5 MG TABLET PO SCH ×2 (10:27→22:43)
[2019-05-31] MEDS: ASPIRIN 81 MG TABLET, CHEWABLE PO SCH (10:27)
[2019-05-31] MEDS: FAMOTIDINE 20 MG TABLET PO SCH ×2 (10:27→22:44)
[2019-05-31] MEDS: DIGOXIN 0.125 MG TABLET PO SCH (10:27)
[2019-05-31] MEDS: GUAIFENESIN 600 MG TABLET.SA PO SCH ×2 (10:28→22:44)
[2019-05-31] MEDS: DOCUSATE SODIUM 100 MG/10 ML UDC PO SCH (10:28)
--- NOTE | 2019-05-31 15:11 | RADIOLOGY REPORT (SQ) ---
EXAM DESCRIPTION: CHEST 2 VIEWS COMPLETED DATE/TIME: 05/31/2019 2:37 pm REASON FOR STUDY: pl effusions COMPARISON: 05/28/2019 EXAM PARAMETERS: NUMBER OF VIEWS: two views TECHNIQUE: Digital Frontal and Lateral radiographic views of the chest acquired. RADIATION DOSE: NA LIMITATIONS: none FINDINGS: LUNGS AND PLEURA: Persistent small pleural effusions right greater than left. Underlying right basilar atelectasis or pneumonia cannot be excluded. No pneumothorax. MEDIASTINUM AND HILAR STRUCTURES: No masses or contour abnormalities. HEART AND VASCULAR STRUCTURES: Heart size is stable. No failure. BONES: No acute findings. HARDWARE: None in the chest. OTHER: No other significant finding. IMPRESSION: Persistent small pleural effusions right greater than left. This is increased since linden or study. TECHNICAL DOCUMENTATION: JOB ID: [id number] 2010 [employer]- All Rights Reserved Reading location - IP/workstation name: [email or web address]
[2019-05-31] MEDS: LEVOFLOXACIN 500 MG TABLET PO SCH (17:45)
[2019-05-31] MEDS: NICOTINE 14 MG/24 HR PATCH.TD24 TD SCH (17:46)
--- NOTE | 2019-05-31 21:53 | Progress Note ---
Provider Note Provider Note: CARDIOLOGY PROGRESS NOTE by Dr. Alina Raymundo on 05/14. SUBJECTIVE: The patient is slightly sleepy. But appears to be appropriate in his responses. He denies any chest pain or discomfort. He has no recurrence of atrial fibrillation. The patient denies shortness of breath. He has some dry cough. There is no PND or orthopnea. There is no leg edema. There is no palpitations. There is no atrial ventricular arrhythmia seen on the monitor. There is no bleeding on Eliquis. There is no TIA CVA symptoms. PHYSICAL EXAMINATION: The patient appears to be chronically ill. He appears to be malnourished. Selected Entries 05/31/19 16:02 Temperature 97.3 F Temperature Oral Source Pulse Rate 80 Respiratory 19 Rate Blood Pressure 108/82 Blood Pressure 90 Mean BP Location Right Arm BP Position Supine O2 Sat by Pulse 99 Oximetry Oxygen Delivery Room Air Method HEAD: Is atraumatic normocephalic. EYES: Pupils equal round regular reactive to light accommodation. Extraocular movements are normal. There is no conjunctival pallor. There is no scleral icterus. EARS: Tympanic membranes are intact. External auditory canals are clear. NOSE: There is no deviated nasal septum. There is no inflammation of the nasal mucous membrane. MOUTH: Mucous membranes of mouth are moist. Tongue is moist. There is no bleeding from the gums. THROAT: There is no redness of the oropharynx. There is no exudates. SKIN: There is no skin rashes or skin lesions. There is no petechia or ecchymosis. NECK: There is no JVD. Carotids are equal there is no bruit. There is no lymphadenopathy. There is no goiter. There is no accessory muscle respiration use.. Trachea is central. LUNGS: Shows diminished air entry prolonged expiration. There is few scattered rhonchi. Absent breath sounds both bases. There is also dullness in both bases. There is no rhonchi. There are a few dry crackles bilaterally. Especially in the bases.. On percussion there is hyperresonance. HEART: When the patient was in atrial fibrillation S1- S2 is normal. Normal S1 intensity. There is murmur of mitral regurgitation present. There is no S3 gallop. There is no S4 gallop. Subsequent to the patient converting to sinus rhythm S1 is of normal intensity with the other findings remaining the same. There was no rub. ABDOMEN: Soft bowel sounds well heard. There is no hepatospleno megaly. Bowel sounds well heard. EXTREMITY is: Femorals are diminished. There is no femoral bruits. Leg pulses are diminished. There is no pedal edema. There is no DVT escalators. There is no calf tenderness. 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 PSYCHIATRIC: The patient judgment insight are intact his affect is normal.His judgement is intact. Labs- All tests 24 hr 05/31/19 03:48 Sodium 140.6 Potassium 3.4 L Chloride 103 Carbon Dioxide 28 Anion Gap 10 BUN 23 H Creatinine 1.19 Est GFR ( Amer) > 60 Est GFR (MDRD) Non-Af > 60 Glucose 100 Calcium 8.4 Magnesium 2.0 Total Bilirubin 1.2 Direct Bilirubin 0.8 H Neonat Total Bilirubin Not Reportable Neonat Direct Bilirubin Not Reportable Neonat Indirect Bili Not Reportable AST 211 H ALT 213 H Alkaline Phosphatase 203 H Total Protein 5.7 L Albumin 2.9 L Chest X-Ray 05/28/19 12:42 IMPRESSION: CARDIOMEGALY. CHRONIC INTERSTITIAL PROMINENCE. NO APPARENT ACUTE FINDINGS. Abdomen Ultrasound 05/28/19 12:52 IMPRESSION: 1. Fatty liver. 2. Ascites. 3. Pleural effusions. 4. No acute gallbladder disease suspected. Chest X-Ray 05/31/19 00:00 IMPRESSION: Persistent small pleural effusions right greater than left. This is increased since prior study. IMPRESSION/RECOMMENDATION: 1. Borderline elevation of troponin high levels. No evidence of non-ST elevation OH. Borderline elevation of troponin I secondary to patient's acute infection, cardiomyopathy and acute exacerbation of COPD. Would not treat this as a non-ST elevation OH. We will treat the underlying cause. 2. Acute exacerbation of COPD: Much improved. Continue anti-COPD medication. 3. Acute on chronic systolic heart failure: In view of the bilateral pleural effusions. We will start the patient on IV Lasix and stop the p.o. Lasix. We will recheck the patient's echocardiogram in the morning. 4. Possible pneumonia: Continue antibiotics. 5. History of hypertension: At present blood pressure well controlled 6. History of coronary artery disease. Prior history of stent placement and prior history of OH. No definite anginal symptoms. Continue Toprol-XL. Continue aspirin 7. 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 Will increase Toprol-XL. And later recommend increasing as tolerated. Continue digoxin.. Continue Lasix. Would recommend rechecking the patient's echo. 8. History of paroxysmal atrial fibrillation: No recent recurrence. Continue Eliquis. 9. Tobacco abuse disorder: Tobacco cessation counseling given 3 minutes spent on this. 10. Possible depression: Continue anti-psychiatric medication. 11. Hyperlipidemia: Continue statin. Will be cautious in monitoring the patient liver function test. Medications reviewed. Medications adjusted. Medical management and management plan discussed with attending provider on the case. Medical decision making is of high complexity. 60 minutes spent as patient more than 50% of time spent in direct patient care. Will follow.
[2019-05-31] MEDS ORDERED: FUROSEMIDE INJ/PF 20 MG/2 ML SDV IV SCH (22:00)
[2019-05-31] MEDS: QUETIAPINE FUMARATE 100 MG TABLET PO SCH (22:44)
[2019-05-31] MEDS: ATORVASTATIN CALCIUM 40 MG TABLET PO SCH (22:44)
[2019-06-01 06:18] LABS: ALBUMIN 3.1 g/dL (3.5-5.0); ALKALINE PHOSPHATASE 190 U/L (38-126); ANION GAP 7 (5-19); ASPARTATE AMINO TRANSFERASE 134 U/L (17-59); BILIRUBIN,DIRECT 0.6 mg/dL (0.0-0.4); BLOOD UREA NITROGEN 23 mg/dL (7-20); CALCIUM 8.7 mg/dL (8.4-10.2); CARBON DIOXIDE 31 mmol/L (22-30); CHLORIDE 103 mmol/L (98-107); CHOLESTEROL 125.85 mg/dL (0-200); DIRECT LDL 78 mg/dL (<100); GLUCOSE 86 mg/dL (75-110); POTASSIUM 3.6 mmol/L (3.6-5.0); TOTAL PROTEIN 5.9 g/dL (6.3-8.2); TRIGLYCERIDES 68 mg/dL (<150); VLDL CHOLESTEROL 13.6 mg/dL (10-31)
[2019-06-01] MEDS: IPRATROPIUM/ALBUTEROL 0.5-2.5 MG/3 ML AMPUL NEB SCH ×3 (07:45→20:12)
[2019-06-01] MEDS ORDERED: TEMAZEPAM 7.5 MG CAPSULE PO PRN (10:09)
--- NOTE | 2019-06-01 10:17 | PDOC PROGRESS REPORT ---
Subjective Progress Note for:: 06/01/19 Subjective:: Patient is very somnolent today. He did get 15 mg of temazepam and 300 mg of Seroquel last night. His transaminases are improved but his BUN and creatinine are slightly elevated. Reason For Visit: ACUTE CHF,CHEST PAIN Physical Exam Vital Signs: Temp Pulse Resp BP Pulse Ox 97.9 F 61 14 101/73 97 06/01/19 07:43 06/01/19 07:45 06/01/19 07:45 06/01/19 07:43 06/01/19 07:45 Intake & Output 05/31/19 06/01/19 06/02/19 06:59 06:59 06:59 Intake Total 480 720 Output Total 100 1050 Balance 380 -330 Weight 63.2 kg 63.5 kg General appearance: PRESENT: no acute distress, cooperative - Cooperative but very somnolent. Difficult to answer questions., thin, well-developed Ear exam: PRESENT: normal external ear exam. ABSENT: bleeding, drainage Respiratory exam: PRESENT: rales - At bases, symmetrical, unlabored. ABSENT: prolonged expiratory phas, rhonchi, tachypnea, wheezes Cardiovascular exam: PRESENT: RRR, +S1, +S2, systolic murmur, other GI/Abdominal exam: PRESENT: normal bowel sounds, soft. ABSENT: distended, tenderness Rectal exam: PRESENT: deferred Extremities exam: ABSENT: pedal edema Musculoskeletal exam: PRESENT: other - Decreased muscle mass Neurological exam: PRESENT: awake. ABSENT: alert - Somnolent Psychiatric exam: PRESENT: other - Somnolent. ABSENT: agitated, anxious Results Laboratory Results: 05/30/19 03:54 06/01/19 04:22 06/01/19 04:22 Sodium 141.3 Potassium 3.6 Chloride 103 Carbon Dioxide 31 H Anion Gap 7 BUN 23 H Creatinine 1.34 H Est GFR ( Amer) > 60 Glucose 86 Calcium 8.7 Magnesium 2.0 Total Bilirubin 1.0 AST 134 H Alkaline Phosphatase 190 H Total Protein 5.9 L Albumin 3.1 L Triglycerides 68 Cholesterol 125.85 LDL Cholesterol Direct 78 VLDL Cholesterol 13.6 HDL Cholesterol 36 L 05/28/19 05/28/19 05/28/19 12:30 12:30 20:25 Troponin I 0.043 0.061 NT-Pro-B Natriuret Pep 64409 H 05/29/19 05/29/19 04:26 12:35 Troponin I 0.071 0.058 NT-Pro-B Natriuret Pep Impressions: Abdomen Ultrasound 05/28/19 12:52 IMPRESSION: 1. Fatty liver. 2. Ascites. 3. Pleural effusions. 4. No acute gallbladder disease suspected. Chest X-Ray 05/31/19 00:00 IMPRESSION: Persistent small pleural effusions right greater than left. This is increased since prior study. Assessment and Plan - Diagnosis (1) Acute systolic heart failure Is this a current diagnosis for this admission?: Yes (2) Acute bronchitis Qualifiers: Bronchitis organism: unspecified organism Qualified Code(s): J20.9 - Acute bronchitis, unspecified Is this a current diagnosis for this admission?: Yes (3) Acute respiratory failure with hypoxia Is this a current diagnosis for this admission?: Yes (4) Longstanding persistent atrial fibrillation Is this a current diagnosis for this admission?: Yes (5) Acute kidney injury Is this a current diagnosis for this admission?: Yes (6) Multiple falls Is this a current diagnosis for this admission?: Yes (7) Noncompliance with medication regimen Is this a current diagnosis for this admission?: Yes (8) Nonspecific chest pain Is this a current diagnosis for this admission?: Yes (11) Hypokalemia Is this a current diagnosis for this admission?: Yes (12) Hypoalbuminemia Is this a current diagnosis for this admission?: Yes (13) Pulmonary hypertension Is this a current diagnosis for this admission?: Yes (14) Mitral regurgitation Qualifiers: Cardiac valve disease etiology: etiology unspecified Qualified Code(s): I34.0 - Nonrheumatic mitral (valve) insufficiency Is this a current diagnosis for this admission?: Yes (15) Tricuspid regurgitation Qualifiers: Cardiac valve disease etiology: etiology unspecified Qualified Code(s): I07.1 - Rheumatic tricuspid insufficiency Is this a current diagnosis for this admission?: Yes (16) Elevated transaminase level Is this a current diagnosis for this admission?: Yes - Plan Summary Summary: 05/31/2019 The patient still has pleural effusions right greater than left. This is likely related to his heart failure. He is on diuretic therapy and heart failure is improved. No thoracentesis at this time. Low albumin is also a contributory factor. The patient likely has hypoalbuminemia secondary to poor intake and c hronic illness. He did have hypokalemia likely a result of the diuresis. I have started potassium therapy. His transaminases were up today. There is no obvious offending agent. He does have steatohepatitis. I have ordered a lipid panel. Longstanding persistent atrial fibrillation. Is in sinus rhythm with multiple PVCs. Rate is adequately controlled. Acute kidney injury and acute respiratory failure with hypoxia have resolved. 06/01/2019 The patient was quite somnolent today and was tired yesterday. I believe it is related to the Seroquel and temazepam. I decreased the Seroquel to 200 mg at bedtime and decrease the temazepam to 7.5 mg at bedtime if needed. Another reason for the somnolence could be the severely depressed ejection fraction (less than 15%) with severe mitral regurgitation, severe tricuspid regurgitation and severe pulmonary hypertension. The systolic heart failure is clearly related to the depressed ejection fraction. Heart failure likely contributed to the acute respiratory failure. We continue to maintain good rate control of the atrial fibrillation with the c urrent medication regimen and the patient is anticoagulated. We will continue to monitor on telemetry. Acute kidney injury-the BUN and creatinine had improved but are slightly elevated again today due to diuresis. I have decreased the furosemide by half and he will be on 20 mg by IV once daily. We will continue to monitor his potassium levels and treat any hypokalemia. Serum potassium is back in the normal range. The steatohepatitis is likely responsible for the elevated transaminases however the severely depressed ejection fraction could also be causing some passive congestion. We will continue to monitor the liver enzymes. The patient is on statin therapy but this may not have significant effect on the fatty liver. The patient has the bilateral pleural effusions and it is clear from the echocardiogram results that these are likely cardiogenic. We will continue the diuretic therapy at the reduced dose as noted above. Dr. Raymundo is continuing to see the patient as well. With the severity of the heart disease I have ordered a palliative care consult. - Time Time Spent with patient: 15-24 minutes Medications reviewed and adjusted accordingly: Yes
[2019-06-01] MEDS: ASPIRIN 81 MG TABLET, CHEWABLE PO SCH (10:45)
[2019-06-01] MEDS: FAMOTIDINE 20 MG TABLET PO SCH ×2 (10:46→21:37)
[2019-06-01] MEDS: DIGOXIN 0.125 MG TABLET PO SCH (10:47)
[2019-06-01] MEDS: POTASSIUM CHLORIDE 10 MEQ TABLET.ER PO SCH (10:47)
[2019-06-01] MEDS: METOPROLOL SUCCINATE 25 MG TAB.SR.24H PO SCH ×2 (10:47→21:37)
[2019-06-01] MEDS: LISINOPRIL 5 MG TABLET PO SCH ×2 (10:47→21:37)
[2019-06-01] MEDS: APIXABAN 5 MG TABLET PO SCH ×2 (10:47→17:58)
[2019-06-01] MEDS: GUAIFENESIN 600 MG TABLET.SA PO SCH ×2 (10:47→21:37)
[2019-06-01] MEDS: DOCUSATE SODIUM 100 MG/10 ML UDC PO SCH (10:48)
--- NOTE | 2019-06-01 16:31 | XCELERA REPORT ---
[address] [address] Transthoracic Echocardiogram Report Name: TAMMY ABREU Age: 73 yrs Gender: Male : 1945 Patient Status: Inpatient Patient Location: [facility]^A Study Date: 05/31/2019 02:39 PM Height: 71 in Weight: 139 lb BSA: 1.8 m2 Procedure: A two-dimensional transthoracic echocardiogram with color flow and Doppler was performed. Study Quality: Good. Reason For Study: Cardiomyopathy / CAD / OLd MO History: Cardiomyopathy / CAD / OLd MO. Ordering Physician: ALINA MAYERS Performed By: Aura Singh Interpretation Summary The left ventricle is moderately to severly dilated. There is normal left ventricular wall thickness. LV EF is Less than 15% Left ventricular systolic function is severely reduced. The LV apex is akinetic.Rest of the LV monreal are severely hypokinetic. There is no thrombus. No ASD , VSD , or PFO. The right ventricle is mild to moderately dilated. The right ventricular systolic function is mild to moderately reduced. The right atrium is mild to moderately dilated. The left atrium is moderately dilated. There is no evidence of mitral valve prolapse. There is no vegetation seen on the mitral valve. There is no mitral valve stenosis. There is a moderate to severe amount of mitral regurgitation There is no aortic valvular vegetation. There is aortic sclerosis without aortic stenosis. There is no LVOT obstruction. There is a mild amount of aortic regurgitation There is no tricuspid stenosis. There is a moderate to severe amount of tricuspid regurgitation There is moderate to severe pulmonary hypertension by echo RVSP is 58 to 63 mm of Hg , with RA mean of 15 to 20. There is no pulmonic valvular stenosis. There is a mild to moderate amount of pulmonic regurgitation The aortic root is normal size. The inferior vena cava appeared dilated and decreased < 50% with respiration (RAP 15-20 mmHg) There is no pericardial effusion. MMode/2D Measurements & Calculations RVDd: 3.8 cm LVIDd: 6.6 cm FS: 6.8 % Ao root diam: 3.4 cm IVSd: 1.1 cm LVIDs: 6.1 cm EDV(Teich): 222.3 ml Ao root area: 9.3 cm2 LVPWd: 1.1 cm ESV(Teich): 189.1 ml EF(Teich): 14.9 % Doppler Measurements & Calculations MV E max rossy: MV dec slope: Ao V2 max: AI max rossy: 63.9 cm/sec 383.6 cm/sec2 119.1 cm/sec 431.6 cm/sec MV A max rossy: MV dec time: Ao max PG: AI max P.5 mmHg 27.6 cm/sec 0.17 sec 5.7 mmHg AI dec slope: MV E/A: 2.3 156.3 cm/sec2 AI P1/2t: 808.7 msec LV V1 max PG: MR max rossy: PA V2 max: PI end-d rossy: 1.6 mmHg 582.7 cm/sec 57.9 cm/sec 139.0 cm/sec LV V1 max: MR max PG: PA max P.6 cm/sec 135.8 mmHg 1.3 mmHg TR max rossy: 328.6 cm/sec TR max P.3 mmHg Left Ventricle The left ventricle is moderately to severly dilated. There is normal left ventricular wall thickness. LV EF is Less than 15%. Left ventricular systolic function is severely reduced. LV diastolic function could not be adequately assessed. The LV apex is akinetic.Rest of the LV monreal are severely hypokinetic. There is no thrombus. No ASD , VSD , or PFO. Right Ventricle The right ventricle is mild to moderately dilated. The right ventricular systolic function is mild to moderately reduced. Atria The right atrium is mild to moderately dilated. The left atrium is moderately dilated. Mitral Valve There is no evidence of mitral valve prolapse. There is no vegetation seen on the mitral valve. There is no mitral valve stenosis. There is a moderate to severe amount of mitral regurgitation. Aortic Valve There is no aortic valvular vegetation. There is aortic sclerosis without aortic stenosis. There is no LVOT obstruction. There is a mild amount of aortic regurgitation. Tricuspid Valve There is no tricuspid stenosis. There is a moderate to severe amount of tricuspid regurgitation. There is moderate to severe pulmonary hypertension by echo. RVSP is 58 to 63 mm of Hg , with RA mean of 15 to 20. Pulmonic Valve There is no pulmonic valvular stenosis. There is a mild to moderate amount of pulmonic regurgitation. Great Vessels The aortic root is normal size. The inferior vena cava appeared dilated and decreased < 50% with respiration (RAP 15-20 mmHg). Effusions There is no pericardial effusion. : ALINA MAYERS, Alina
--- NOTE | 2019-06-01 16:58 | Progress Note ---
Provider Note Provider Note: CARDIOLOGY PROGRESS NOTE by Dr. Alina Raymundo on 06/01/2019. SUBJECTIVE: Patient is very drowsy and lethargic. He denies any chest pain or discomfort. He still complains of shortness of breath and has a dry cough. There is no arrhythmia seen on the monitor especially there is no recurrence of atrial fibrillation. There is no bleeding on Eliquis. There is no TIA CVA symptoms. Transition to IV Lasix does not seem to have improved the patient's heart failure. PHYSICAL EXAMINATION: The patient appears to be a frail build and malnourished. Selected Entries 06/02/19 08:25 Temperature 98.1 F Temperature Oral Source Pulse Rate 68 Respiratory 20 Rate Blood Pressure 128/76 H Blood Pressure 93 Mean BP Location Right Arm BP Position Sitting O2 Sat by Pulse 98 Oximetry Oxygen Delivery Room Air Method HEAD: Is atraumatic normocephalic. EYES: Pupils equal round regular reactive to light accommodation. Extraocular movements are normal. There is no conjunctival pallor. There is no scleral icterus. EARS: Tympanic membranes are intact. External auditory canals are clear. NOSE: There is no deviated nasal septum. There is no inflammation of the nasal mucous membrane. MOUTH: Mucous membranes of mouth are moist. Tongue is moist. There is no bleeding from the gums. THROAT: There is no redness of the oropharynx. There is no exudates. SKIN: There is no skin rashes or skin lesions. There is no petechia or ecchymosis. NECK: There is no JVD. Carotids are equal there is no bruit. There is no lymphadenopathy. There is no goiter. There is no accessory muscle respiration use.. Trachea is central. LUNGS: Shows diminished air entry prol onged expiration. There is few scattered rhonchi. Absent breath sounds both bases. There is also dullness in both bases. There is no rhonchi. There are a few dry crackles bilaterally. Especially in the bases.. On percussion there is hyperresonance. HEART: When the patient was in atrial fibrillation S1-S2 is normal. Normal S1 intensity. There is murmur of mitral regurgitation present. There is no S3 gallop. There is no S4 gallop. Subsequent to the patient converting to sinus rhythm S1 is of normal intensity with the other findings remaining the same. There was no rub. ABDOMEN: Soft bowel sounds well heard. There is no hepatospleno megaly. Bowel sounds well heard. EXTREMITY is: Femorals are diminished. There is no femoral bruits. Leg pulses are diminished. There is no pedal edema. There is no DVT escalators. There is no calf tenderness. 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 PSYCHIATRIC: The patient judgment insight are intact his affect is normal.His judgement is intact. Chest X-Ray 05/28/19 12:42 IMPRESSION: CARDIOMEGALY. CHRONIC INTERSTITIAL PROMINENCE. NO APPARENT ACUTE FINDINGS. Abdomen Ultrasound 05/28/19 12:52 IMPRESSION: 1. Fatty liver. 2. Ascites. 3. Pleural effusions. 4. No acute gallbladder disease suspected. Chest X-Ray 05/31/19 00:00 IMPRESSION: Persistent small pleural effusions right greater than left. This is increased since prior study. 05/30/19 06/01/19 03:54 04:22 Sodium 141.3 Potassium 3.6 Chloride 103 Carbon Dioxide 31 H Anion Gap 7 BUN 23 H Creatinine 1.34 H Est GFR (MDRD) Non-Af 52 L Glucose 86 Calcium 8.7 Magnesium 2.0 Total Bilirubin 1.0 Direct Bilirubin 0.6 H Neonat Total Bilirubin Not Reportable Neonat Direct Bilirubin Not Reportable Neonat Indirect Bili Not Reportable AST 134 H ALT 176 H Alkaline Phosphatase 190 H Total Protein 5.9 L Albumin 3.1 L Triglycerides 68 Cholesterol 125.85 LDL Cholesterol Direct 78 VLDL Cholesterol 13.6 HDL Cholesterol 36 L Digoxin < 0.40 L The patient's echocardiogram shows that the LV is dilated with LV ejection fraction severely reduced at less than 15%. Please see report. This has been discussed with the patient. IMPRESSION/RECOMMENDATION: 1. Borderline elevation of troponin high levels. No evidence of non-ST elevation AL. Borderline elevation of troponin I secondary to patient's acute infection, cardiomyopathy and acute exacerbation of COPD. Would not treat this as a non-ST elevation AL. We will treat the underlying cause. 2. Acute exacerbation of COPD: Much improved. Continue anti-COPD medication. 3. Acute on chronic systolic heart failure: In view of the bilateral pleural effusions. We will start the patient on IV Lasix and stop the p.o. Lasix. We will recheck the patient's echocardiogram in the morning. 4. Possible pneumonia: Continue antibiotics. 5. History of hypertension: At present blood pressure well controlled 6. History of coronary artery disease. Prior history of stent placement and prior history of AL. No definite anginal symptoms. Continue Toprol-XL. Continue aspirin 7. 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 Will increase Toprol-XL. And later recommend increasing as tolerated. Continue digoxin.. Continue Lasix. Would recommend rechecking the patient's echo. 8. History of paroxysmal atrial fibrillation: No recent recurrence. Continue Eliquis. 9. Tobacco abuse disorder: Tobacco cessation counseling given 3 minutes spent on this. 10. Possible depression: Continue anti-psychiatric medication. 11. Hyperlipidemia: We will discontinue statin due to abnormal liver function test. 12. Renal insufficiency most likely cardiorenal syndrome. 13. Abnormal liver function test. 14. DNR. Medications reviewed. Medications adjusted. Medical management plan and medical regimen discussed with the attending physician. 40 minutes spent as patient with more than 50% of time spent in direct patient care medical decision making is of high complexity. Will follow.
[2019-06-01] MEDS: NICOTINE 14 MG/24 HR PATCH.TD24 TD SCH (17:55)
[2019-06-01] MEDS: LEVOFLOXACIN 500 MG TABLET PO SCH (17:58)
[2019-06-01] MEDS: QUETIAPINE FUMARATE 100 MG TABLET PO SCH (21:37)
[2019-06-01] MEDS: ATORVASTATIN CALCIUM 40 MG TABLET PO SCH (21:37)
[2019-06-02 05:48] LABS: ANION GAP 9 (5-19); BLOOD UREA NITROGEN 25 mg/dL (7-20); CALCIUM 8.8 mg/dL (8.4-10.2); CARBON DIOXIDE 27 mmol/L (22-30); CHLORIDE 105 mmol/L (98-107); GLUCOSE 93 mg/dL (75-110); POTASSIUM 3.9 mmol/L (3.6-5.0)
[2019-06-02] MEDS: IPRATROPIUM/ALBUTEROL 0.5-2.5 MG/3 ML AMPUL NEB SCH ×3 (08:18→20:40)
[2019-06-02] MEDS: FUROSEMIDE INJ/PF 20 MG/2 ML SDV IV SCH (09:50)
[2019-06-02] MEDS: FAMOTIDINE 20 MG TABLET PO SCH ×2 (09:53→22:25)
[2019-06-02] MEDS: LISINOPRIL 5 MG TABLET PO SCH ×2 (09:53→22:25)
[2019-06-02] MEDS: METOPROLOL SUCCINATE 25 MG TAB.SR.24H PO SCH ×2 (09:53→22:26)
[2019-06-02] MEDS: ASPIRIN 81 MG TABLET, CHEWABLE PO SCH (09:53)
[2019-06-02] MEDS: APIXABAN 5 MG TABLET PO SCH ×2 (09:53→17:18)
[2019-06-02] MEDS: DOCUSATE SODIUM 100 MG CAPSULE PO SCH (09:53)
[2019-06-02] MEDS: POTASSIUM CHLORIDE 10 MEQ TABLET.ER PO SCH (09:54)
[2019-06-02] MEDS: GUAIFENESIN 600 MG TABLET.SA PO SCH ×2 (09:54→22:24)
[2019-06-02] MEDS: DIGOXIN 0.125 MG TABLET PO SCH (09:54)
--- NOTE | 2019-06-02 14:49 | PDOC PROGRESS REPORT ---
Subjective Progress Note for:: 06/02/19 Subjective:: The patient is more awake today. He is conversant. He had a long discussion about his cardiac status. Dr. Santos stopped and saw the patient as well. He admits to feeling very weak. He states that he can lie flat without breathing difficulties. Of note, every time I am in the room he does have the head of the bed elevated slightly. Reason For Visit: ACUTE CHF,CHEST PAIN Physical Exam Vital Signs: Temp Pulse Resp BP Pulse Ox 97.6 F 75 14 134/86 H 95 06/02/19 12:08 06/02/19 13:34 06/02/19 13:34 06/02/19 12:08 06/02/19 13:34 Intake & Output 06/01/19 06/02/19 06/03/19 06:59 06:59 06:59 Intake Total 720 1540 Output Total 1050 600 Balance -330 940 Weight 63.5 kg 60.8 kg General appearance: PRESENT: no acute distress, thin, well-developed Head exam: PRESENT: atraumatic, normocephalic Respiratory exam: PRESENT: clear to auscultation lea, symmetrical, unlabored. ABSENT: prolonged expiratory phas, rales, rhonchi, tachypnea, wheezes Cardiovascular exam: PRESENT: RRR, +S1, +S2, systolic murmur, other - Occasional irregular beats GI/Abdominal exam: PRESENT: normal bowel sounds, soft. ABSENT: distended, tenderness Rectal exam: PRESENT: deferred Extremities exam: ABSENT: pedal edema Neurological exam: PRESENT: alert, awake, oriented to person, oriented to place, oriented to time, oriented to situation, CN II-XII grossly intact Psychiatric exam: PRESENT: flat affect Results Laboratory Results: 05/30/19 03:54 06/02/19 04:21 06/02/19 04:21 Sodium 140.6 Potassium 3.9 Chloride 105 Carbon Dioxide 27 Anion Gap 9 BUN 25 H Creatinine 1.40 H Est GFR ( Amer) > 60 Glucose 93 Calcium 8.8 Magnesium 2.1 05/28/19 05/28/19 05/28/19 12:30 12:30 20:25 Troponin I 0.043 0.061 NT-Pro-B Natriuret Pep 42081 H 05/29/19 05/29/19 04:26 12:35 Troponin I 0.071 0.058 NT-Pro-B Natriuret Pep Impressions: Abdomen Ultrasound 05/28/19 12:52 IMPRESSION: 1. Fatty liver. 2. Ascites. 3. Pleural effusions. 4. No acute gallbladder disease suspected. Chest X-Ray 05/31/19 00:00 IMPRESSION: Persistent small pleural effusions right greater than left. This is increased since prior study. Assessment and Plan - Diagnosis (1) Acute systolic heart failure Is this a current diagnosis for this admission?: Yes (2) Acute bronchitis Qualifiers: Bronchitis organism: unspecified organism Qualified Code(s): J20.9 - Acute bronchitis, unspecified Is this a current diagnosis for this admission?: Yes (3) Acute respiratory failure with hypoxia Is this a current diagnosis for this admission?: Yes (4) Longstanding persistent atrial fibrillation Is this a current diagnosis for this admission?: Yes (5) Acute kidney injury Is this a current diagnosis for this admission?: Yes (6) Multiple falls Is this a current diagnosis for this admission?: Yes (7) Noncompliance with medication regimen Is this a current diagnosis for this admission?: Yes (8) Nonspecific chest pain Is this a current diagnosis for this admission?: Yes (11) Hypokalemia Is this a current diagnosis for this admission?: Yes (12) Hypoalbuminemia Is this a current diagnosis for this admission?: Yes (13) Pulmonary hypertension Is this a current diagnosis for this admission?: Yes (14) Mitral regurgitation Qualifiers: Cardiac valve disease etiology: etiology unspecified Qualified Code(s): I34.0 - Nonrheumatic mitral (valve) insufficiency Is this a current diagnosis for this admission?: Yes (15) Tricuspid regurgitation Qualifiers: Cardiac valve disease etiology: etiology unspecified Qualified Code(s): I07.1 - Rheumatic tricuspid insufficiency Is this a current diagnosis for this admission?: Yes (16) Elevated transaminase level Is this a current diagnosis for this admission?: Yes - Plan Summary Summary: 05/31/2019 The patient still has pleural effusions right greater than left. This is likely related to his heart failure. He is on diuretic therapy and heart failure is improved. No thoracentesis at this time. Low albumin is also a contributory factor. The patient likely has hypoalbuminemia secondary to poor intake and chronic illness. He did have hypokalemia likely a result of the diuresis. I have started potassium therapy. His transaminases were up today. There is no obvious offending agent. He does have steatohepatitis. I have ordered a lipid panel. Longstanding persistent atrial fibrillation. Is in sinus rhythm with multiple PVCs. Rate is adequately controlled. Acute kidney injury and acute respiratory failure with hypoxia have resolved. 06/01/2019 The patient was quite somnolent today and was tired yesterday. I believe it is related to the Seroquel and temazepam. I decreased the Seroquel to 200 mg at bedtime and decrease the temazepam to 7.5 mg at bedtime if needed. Another reason for the somnolence could be the severely depressed ejection fraction (less than 15%) with severe mitral regurgitation, severe tricuspid regurgitation and severe pulmonary hypertension. The systolic heart failure is clearly related to the depressed ejection fraction. Heart failure likely contributed to the acute respiratory failure. We continue to maintain good rate control of the atrial fibrillation with the current medication regimen and the patient is anticoagulated. We will continue to monitor on telemetry. Acute kidney injury-the BUN and creatinine had improved but are slightly elevated again today due to diuresis. I have decreased the furosemide by half and he will be on 20 mg by IV once daily. We will continue to monitor his potassium levels and treat any hypokalemia. Serum potassium is back in the normal range. The steatohepatitis is likely responsible for the elevated transaminases however the severely depressed ejection fraction could also be causing some passive congestion. We will continue to monitor the liver enzymes. The patient is on statin therapy but this may not have significant effect on the fatty liver. The patient has the bilateral pleural effusions and it is clear from the echocardiogram results that these are likely cardiogenic. We will continue the diuretic therapy at the reduced dose as noted above. Dr. Raymundo is contin ui to see the patient as well. With the severity of the heart disease I have ordered a palliative care consult. 06/02/2019 The patient is more awake. Cutting back on the Seroquel and temazepam seems to have helped. The echocardiogram results are available. His ejection fraction is in the 20 to 25% range. He has severe mitral and tricuspid regurgitation as well as pulmonary hypertension. Dr. Raymundo wishes to try dobutamine. He has asked for a central line. The patient may need amiodarone if the dobutamine triggers his fibrillation. He remains on telemetry. The patient's electrolytes are currently normal and we will continue to monitor those. His BUN and creatinine are up slightly higher than yesterday however I did decrease the furosemide and I expect that they will begin to normalize tomorrow. His liver enzymes continue to improve. No specific therapy for fatty liver at this time. Because the patient will be getting dobutamine I did explain to the patient the discussion we were having about short-term skilled rehab is currently on hold. I did explain that because of his unsteady gait and falls in the past that he would benefit from more aggressive physical therapy prior to returning home. He will have several days to think about this. The remainder of the treatments for his associated comorbidities will be unchanged. Continued monitoring of vital signs, intake and output and telemetry monitoring. - Time Time Spent with patient: 15-24 minutes Medications reviewed and adjusted accordingly: Yes
--- NOTE | 2019-06-02 14:51 | Progress Note ---
Provider Note Provider Note: CARDIOLOGY PROGRESS NOTE by Dr. Alina Suárez on 06/02/2019. Subjective: The patient denies any chest pain or discomfort. He still has shortness of breath. His urine output is not very good. He states he can lie down flat. But he complains of shortness of breath increasing. The patient's liver function tests are abnormal and the patient renal function is deteriorating. Also he has increasing shortness of breath. Hence the patient would need inotropes. To treat the patient's heart failure. We will get a central line placed and start the patient on dobutamine. Subsequently we will also start the patient on IV amiodarone to prevent the patient going back into atrial fibrillation there is no bleeding on Eliquis. There is no TIA CVA symptoms. This has been discussed with the patient is more awake and alert today. He is agreeable to having a central line placed and being treated with medication. Note is echocardiogram shows deterioration of his LV ejection fraction to less than 20%. Notes that the patient has not been on medication for his heart failure/cardiomyopathy since his last admission. Hence we need to start the patient on aggressive medical treatment for his heart failure with beta-blockers and ARB/JESSICA inhibitors and then recheck the patient's ejection fraction in 3 months. If this shows that EF is 35% or below then the patient would need a AICD. This has been discussed with the patient. Prior to that the patient will have a repeat stress test cardiac catheterization to make sure that there is no coronary artery disease of significance that needs to be treated prior to placing AICD. Physical EXAMINATION: The patient appears to be chronically ill he is a frail build and appears to be malnourished. Selected Entries 06/02/19 12:08 Temperature 97.6 F Temperature Oral Source Pulse Rate 82 Respiratory 16 Rate Blood Pressure 134/86 H Blood Pressure 102 Mean BP Location Right Arm BP Position Sitting O2 Sat by Pulse 98 Oximetry Oxygen Delivery Room Air Method HEAD: Is atraumatic normocephalic. EYES: Pupils equal round regular reactive to light accommodation. Extraocular movements are normal. There is no conjunctival pallor. There is no scleral icterus. EARS: Tympanic membranes are intact. External auditory canals are clear. NOSE: There is no deviated nasal septum. There is no inflammation of the nasal mucous membrane. MOUTH: Mucous membranes of mouth are moist. Tongue is moist. There is no bleeding from the gums. THROAT: There is no redness of the oropharynx. There is no exudates. SKIN: There is no skin rashes or skin lesions. There is no petechia or ecchymosis. NECK: There is no JVD. Carotids are equal there is no bruit. There is no lymphadenopathy. There is no goiter. There is no accessory muscle respiration use.. Trachea is central. LUNGS: Shows diminished air entry prolon ged expiration. There is few scattered rhonchi. Absent breath sounds both bases. There is also dullness in both bases. There is no rhonchi. There are a few dry crackles bilaterally. Especially in the bases.. On percussion there is hyperresonance. HEART: When the patient was in atrial fibrillation S1-S2 is normal. Normal S1 intensity. There is murmur of mitral regurgitation present. There is no S3 gallop. There is no S4 gallop. Subsequent to the patient converting to sinus rhythm S1 is of normal intensity with the other findings remaining the same. There was no rub. ABDOMEN: Soft bowel sounds well heard. There is no hepatospleno megaly. Bowel sounds well heard. EXTREMITY is: Femorals are diminished. There is no femoral bruits. Leg pulses are diminished. There is no pedal edema. There is no DVT escalators. There is no calf tenderness. 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 PSYCHIATRIC: The patient judgment insight are intact his affect is normal.His judgement is intact. Labs- All tests 24 hr 06/02/19 04:21 Sodium 140.6 Potassium 3.9 Chloride 105 Carbon Dioxide 27 Anion Gap 9 BUN 25 H Creatinine 1.40 H Est GFR ( Amer) > 60 Est GFR (MDRD) Non-Af 50 L Glucose 93 Calcium 8.8 Magnesium 2.1 Chest X-Ray 05/28/19 12:42 IMPRESSION: CARDIOMEGALY. CHRONIC INTERSTITIAL PROMINENCE. NO APPARENT ACUTE FINDINGS. Abdomen Ultrasound 05/28/19 12:52 IMPRESSION: 1. Fatty liver. 2. Ascites. 3. Pleural effusions. 4. No acute gallbladder disease suspected. Chest X-Ray 05/31/19 00:00 IMPRESSION: Persistent small pleural effusions right greater than left. This is increased since prior study. Chest X-Ray 06/02/19 00:00 IMPRESSION: Tip of the central line in the cavoatrial junction copyright 2010 [employer]- All Rights Reserved IMPRESSION/RECOMMENDATION: 1. Borderline elevation of troponin high levels. No evidence of non-ST elevation AL. Borderline elevation of troponin I secondary to patient's acute infection, cardiomyopathy and acute exacerbation of COPD. Would not treat this as a non-ST elevation AL. We will treat the underlying cause. 2. Acute exacerbation of COPD: Much improved. Continue anti-COPD medication. 3. Acute on chronic systolic heart failure: In view of the bilateral pleural effusions. Will continue the patient's IV Lasix. Continue patient beta-arelis and JESSICA inhibitor in view of the patient's ongoing symptoms of shortness of breath and heart failure we will start the patient on dobutamine at 2.5 mcg/kg/min. In view of the patient's prior history of proximal atrial fibrillation we will start the patient prophylactically on amiodarone drip without bolus. This is to prevent recurrence of atrial fibrillation.. We will recheck the patient's echocardiogram in the morning. 4. Possible pneumonia: Continue antibiotics. 5. History of hypertension: At present blood pressure well controlled 6. History of coronary artery disease. Prior history of stent placement and prior history of AL. No definite anginal symptoms. Continue Toprol-XL. Continue aspirin 7. 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 Will increase Toprol-XL. And later recommend increasing as tolerated. Continue digoxin.. Continue Lasix. Would recommend rechecking the patient's echo. 8. History of paroxysmal atrial fibrillation: No recent recurrence. Continue Eliquis. 9. Tobacco abuse disorder: Tobacco cessation counseling given 3 minutes spent on this. 10. Possible depression: Continue anti-psychiatric medication. 11. Hyperlipidemia: Continue statin. Will be cautious in monitoring the patient liver function test. Medications reviewed. The plan to start dobutamine and increase as tolerated, and starting the patient on IV amiodarone to prevent recurrence of atrial fibrillation on dobutamine has been discussed with the patient and with the attending provider. Medical decision making is high complexity. 40 minutes spent on this patient more than 50% of time spent in direct patient care. Will will start dobutamine and IV amiodarone after the central line is placed. Will follow.
[2019-06-02] MEDS: LEVOFLOXACIN 500 MG TABLET PO SCH (17:18)
[2019-06-02] MEDS: NICOTINE 14 MG/24 HR PATCH.TD24 TD SCH (17:23)
--- NOTE | 2019-06-02 21:52 | Operative Report ---
Operative Report DATE OF SURGERY: 06/02/19 PREOPERATIVE DIAGNOSIS: Congestive heart failure. POSTOPERATIVE DIAGNOSIS: Congestive heart failure, critical need for central venous access. OPERATION: Right subclavian triple-lumen central line placement SURGEON: LYNN DEMARCO ANESTHESIA: Local TISSUE REMOVED OR ALTERED: None COMPLICATIONS: None ESTIMATED BLOOD LOSS: 10 cc INTRAOPERATIVE FINDINGS: None PROCEDURE: Informed consent was obtained. Procedure was done at the patient's bedside. Binh powell's right neck and chest was prepped and draped in usual sterile fashion. Local anesthetic was administered. The right subclavian vein was entered without difficulty on the first stick. Triple-lumen central venous catheter was placed via the Seldinger technique without difficulty. It withdrew blood and flushed easily. It was sutured in place. Dressings were applied. Stat portable chest x-ray was ordered. Patient tolerated procedure well with no apparent complications.
[2019-06-02] MEDS: ATORVASTATIN CALCIUM 40 MG TABLET PO SCH (22:24)
[2019-06-02] MEDS: QUETIAPINE FUMARATE 100 MG TABLET PO SCH (22:25)
[2019-06-02] MEDS: OXYCODONE-ACETAMINOPHEN 5-325 MG TABLET PO PRN (22:25)
[2019-06-02] MEDS ORDERED: DOBUTAMINE HCL/D5W 500 MG/250 ML RTUINJ IV PRN (22:30)
[2019-06-02] MEDS ORDERED: DEXTROSE 5%-WATER 500 ML with AMIODARONE HCL 900 MG IV PRN ×2 (22:31)
--- NOTE | 2019-06-02 22:32 | RADIOLOGY REPORT (SQ) ---
EXAM DESCRIPTION: XR CHEST 1 VIEW COMPLETED DATE/TME: 06/02/2019 00:00 CLINICAL HISTORY: 73 years, Male, s/p Central Line Placement COMPARISON: 05/31/2019 chest NUMBER OF VIEWS: 1 TECHNIQUE: Portable chest LIMITATIONS: None. FINDINGS: Central venous catheter with the tip in the cavoatrial junction. No pneumothorax. The heart is enlarged but stable. Mild elevation of the right hemidiaphragm. Probable tiny right effusion. IMPRESSION: Tip of the central line in the cavoatrial junction copyright 2010 [employer]- All Rights Reserved
[2019-06-03] MEDS ORDERED: AMIODARONE HCL INJ 150 MG/3 ML VIAL IV ONE (00:02)
[2019-06-03] MEDS: IPRATROPIUM/ALBUTEROL 0.5-2.5 MG/3 ML AMPUL NEB SCH ×3 (08:15→19:31)
[2019-06-03] MEDS: GUAIFENESIN 600 MG TABLET.SA PO SCH (10:05)
[2019-06-03] MEDS: DOCUSATE SODIUM 100 MG CAPSULE PO SCH (10:05)
[2019-06-03] MEDS: POTASSIUM CHLORIDE 10 MEQ TABLET.ER PO SCH (10:05)
[2019-06-03] MEDS: APIXABAN 5 MG TABLET PO SCH ×2 (10:05→17:32)
[2019-06-03] MEDS: FAMOTIDINE 20 MG TABLET PO SCH (10:06)
[2019-06-03] MEDS: METOPROLOL SUCCINATE 25 MG TAB.SR.24H PO SCH (10:06)
[2019-06-03] MEDS: ASPIRIN 81 MG TABLET, CHEWABLE PO SCH (10:06)
[2019-06-03] MEDS: FUROSEMIDE INJ/PF 20 MG/2 ML SDV IV SCH (10:06)
[2019-06-03] MEDS: LISINOPRIL 5 MG TABLET PO SCH (10:06)
[2019-06-03] MEDS: DIGOXIN 0.125 MG TABLET PO SCH (10:07)
--- NOTE | 2019-06-03 12:38 | PDOC PROGRESS REPORT ---
Subjective Progress Note for:: 06/03/19 Subjective:: The patient is awake and alert. He is on amiodarone and dobutamine. He states that he really does not seem to feel that much better however he does complain of right shoulder pain. There is tenderness over the AC joint. Reason For Visit: ACUTE CHF,CHEST PAIN Physical Exam Vital Signs: Temp Pulse Resp BP Pulse Ox 98.2 F 66 16 105/63 100 06/03/19 09:02 06/03/19 10:00 06/03/19 09:02 06/03/19 10:00 06/03/19 09:02 Intake & Output 06/02/19 06/03/19 06/04/19 06:59 06:59 06:59 Intake Total 1540 2404 Output Total 600 1385 Balance 940 1019 Weight 60.8 kg 58.8 kg General appearance: PRESENT: no acute distress, cooperative, thin, well- developed Head exam: PRESENT: atraumatic, normocephalic Ear exam: PRESENT: normal external ear exam. ABSENT: drainage Respiratory exam: PRESENT: clear to auscultation lea, symmetrical, unlabored. ABSENT: prolonged expiratory phas, rales, rhonchi, tachypnea, wheezes Cardiovascular exam: PRESENT: RRR, +S1, +S2, systolic murmur GI/Abdominal exam: PRESENT: normal bowel sounds, soft. ABSENT: distended, guarding, mass, tenderness Rectal exam: PRESENT: deferred Extremities exam: PRESENT: other - There is no crepitus in the right shoulder however the patient is tender over the AC joint. I did review the chest x-ray that was obtained to check central line placement however it did not fully reveal the shoulder. It also could be that the discomfort is related to the central line placement on that side. Musculoskeletal exam: PRESENT: other - Decreased muscle mass Neurological exam: PRESENT: alert, awake, oriented to person, oriented to place, oriented to time, oriented to situation, CN II-XII grossly intact Psychiatric exam: PRESENT: flat affect. ABSENT: agitated, anxious Results Laboratory Results: 05/30/19 03:54 06/02/19 04:21 05/28/19 05/28/19 05/28/19 12:30 12:30 20:25 Troponin I 0.043 0.061 NT-Pro-B Natriuret Pep 32617 H 02/17/20 02/17/20 04:26 12:35 Troponin I 0.071 0.058 NT-Pro-B Natriuret Pep Impressions: Abdomen Ultrasound 05/28/19 12:52 IMPRESSION: 1. Fatty liver. 2. Ascites. 3. Pleural effusions. 4. No acute gallbladder disease suspected. Chest X-Ray 06/02/19 00:00 IMPRESSION: Tip of the central line in the cavoatrial junction copyright 2010 [employer]- All Rights Reserved Assessment and Plan - Diagnosis (1) Acute systolic heart failure Is this a current diagnosis for this admission?: Yes (2) Acute bronchitis Qualifiers: Bronchitis organism: unspecified organism Qualified Code(s): J20.9 - Acute bronchitis, unspecified Is this a current diagnosis for this admission?: Yes (3) Acute respiratory failure with hypoxia Is this a current diagnosis for this admission?: Yes (4) Longstanding persistent atrial fibrillation Is this a current diagnosis for this admission?: Yes (5) Acute kidney injury Is this a current diagnosis for this admission?: Yes (6) Multiple falls Is this a current diagnosis for this admission?: Yes (7) Noncompliance with medication regimen Is this a current diagnosis for this admission?: Yes (8) Nonspecific chest pain Is this a current diagnosis for this admission?: Yes (11) Hypokalemia Is this a current diagnosis for this admission?: Yes (12) Hypoalbuminemia Is this a current diagnosis for this admission?: Yes (13) Pulmonary hypertension Is this a current diagnosis for this admission?: Yes (14) Mitral regurgitation Qualifiers: Cardiac valve disease etiology: etiology unspecified Qualified Code(s): I34.0 - Nonrheumatic mitral (valve) insufficiency Is this a current diagnosis for this admission?: Yes (15) Tricuspid regurgitation Qualifiers: Cardiac valve disease etiology: etiology unspecified Qualified Code(s): I07.1 - Rheumatic tricuspid insufficiency Is this a current diagnosis for this admission?: Yes (16) Elevated transaminase level Is this a current diagnosis for this admission?: Yes - Plan Summary Summary: 05/31/2019 The patient still has pleural effusions right greater than left. This is likely related to his heart failure. He is on diuretic therapy and heart failure is improved. No thoracentesis at this time. Low albumin is also a contributory factor. The patient likely has hypoalbuminemia secondary to poor intake and ch ronic illness. He did have hypokalemia likely a result of the diuresis. I have started potassium therapy. His transaminases were up today. There is no obvious offending agent. He does have steatohepatitis. I have ordered a lipid panel. Longstanding persistent atrial fibrillation. Is in sinus rhythm with multiple PVCs. Rate is adequately controlled. Acute kidney injury and acute respiratory failure with hypoxia have resolved. 06/01/2019 The patient was quite somnolent today and was tired yesterday. I believe it is related to the Seroquel and temazepam. I decreased the Seroquel to 200 mg at bedtime and decrease the temazepam to 7.5 mg at bedtime if needed. Another reason for the somnolence could be the severely depressed ejection fraction (less than 15%) with severe mitral regurgitation, severe tricuspid regurgitation and severe pulmonary hypertension. The systolic heart failure is clearly related to the depressed ejection fraction. Heart failure likely contributed to the acute respiratory failure. We continue to maintain good rate control of the atrial fibrillation with the cu rrent medication regimen and the patient is anticoagulated. We will continue to monitor on telemetry. Acute kidney injury-the BUN and creatinine had improved but are slightly elevated again today due to diuresis. I have decreased the furosemide by half and he will be on 20 mg by IV once daily. We will continue to monitor his potassium levels and treat any hypokalemia. Serum potassium is back in the normal range. The steatohepatitis is likely responsible for the elevated transaminases however the severely depressed ejection fraction could also be causing some passive congestion. We will continue to monitor the liver enzymes. The patient is on statin therapy but this may not have significant effect on the fatty liver. The patient has the bilateral pleural effusions and it is clear from the echocardiogram results that these are likely cardiogenic. We will continue the diuretic therapy at the reduced dose as noted above. Dr. Raymundo is continuing to see the patient as well. With the severity of the heart disease I have ordered a palliative care consult. 06/02/2019 The patient is more awake. Cutting back on the Seroquel and temazepam seems to have helped. The echocardiogram results are available. His ejection fraction is in the 20 to 25% range. He has severe mitral and tricuspid regurgitation as well as pulmonary hypertension. Dr. Raymundo wishes to try dobutamine. He has asked for a central line. The patient may need amiodarone if the dobutamine triggers his fibrillation. He remains on telemetry. The patient's electrolytes are currently normal and we will continue to monitor those. His BUN and creatinine are up slightly higher than yesterday however I did decrease the furosemide and I expect that they will begin to normalize tomorrow. His liver enzymes continue to improve. No specific therapy for fatty liver at this time. Because the patient will be getting dobutamine I did explain to the patient the discussion we were having about short-term skilled rehab is currently on hold. I did explain that because of his unsteady gait and falls in the past that he would benefit from more aggressive physical therapy prior to returning home. He will have several days to think about this. The remainder of the treatments for his associated comorbidities will be unchanged. Continued monitoring of vital signs, intake and output and telemetry monitoring. 06/03/2019 The patient is resting in the chair. He is on dobutamine and amiodarone. He appears to be tolerating the medication without difficulty. He did have a central line placed in the right subclavian artery. He is having some right shoulder pain. This is new since placement of the line and may be related indirectly with some referred pain. I cannot adequately appreciate the right shoulder on x-ray. We will utilize mild analgesia and supportive care. If it continues then we will obtain a dedicated shoulder film. I would expect that there would be arthritis. He may benefit from increased activity. I have ordered blood work for tomorrow to continue to monitor his elevated transaminases and slightly elevated BUN and creatinine. Physical therapy will continue to work with the patient. The patient still has the right-sided pleural effusion but he appears to be stable at this time and so no acute intervention is warranted. - Time Time Spent with patient: 15-24 minutes Medications reviewed and adjusted accordingly: Yes
--- NOTE | 2019-06-03 17:27 | Progress Note ---
Provider Note Provider Note: CARDIOLOGY PROGRESS NOTE by Dr. Alina Raymundo on 06/03/2019. SUBJECTIVE: The patient states he feels better. But he refuses Lasix since he states he urinates a lot. I have explained to the patient that he does need to be on Lasix to treat his heart failure. There is no recurrence of atrial fibrillation. He feels less weak. He states his shortness of breath is improving. He denies orthopnea PND or leg edema. There is no palpitations. There is no chest pain or discomfort. There is no recurrence of atrial fibrillation. There is no bleeding on Eliquis. There is no TIA CVA symptoms. PHYSICAL EXAMINATION: The patient appears to be chronically ill and malnourished. But at present in no acute distress. Selected Entries 06/03/19 13:22 Temperature 97.4 F Temperature Oral Source Pulse Rate 75 Respiratory 16 Rate Blood Pressure 120/72 Blood Pressure 88 Mean BP Location Right Arm BP Position Sitting O2 Sat by Pulse 99 Oximetry Oxygen Delivery Room Air Method HEAD: Is atraumatic normocephalic. EYES: Pupils equal round regular reactive to light accommodation. Extraocular movements are normal. There is no conjunctival pallor. There is no scleral icterus. EARS: Tympanic membranes are intact. External auditory canals are clear. NOSE: There is no deviated nasal septum. There is no inflammation of the nasal mucous membrane. MOUTH: Mucous membranes of mouth are moist. Tongue is moist. There is no bleeding from the gums. THROAT: There is no redness of the oropharynx. There is no exudates. SKIN: There is no skin rashes or skin lesions. There is no petechia or ecchymosis. NECK: There is no JVD. Carotids are equal there is no bruit. There is no lymphadenopathy. There is no goiter. There is no accessory muscle respiration use.. Trachea is central. LUNGS: Shows diminished air entry prolonged expiration. There is few scattered rhonchi. Absent breath sounds both bases. There is also dullness in both bases. There is no rhonchi. There are a few dry crackles bilaterally. Especially in the bases.. On percussion there is hyperresonance. HEART: When the patient was in atrial fibrillation S1- S2 is normal. Normal S1 intensity. There is murmur of mitral regurgitation present. There is no S3 gallop. There is no S4 gallop. Subsequent to the patient converting to sinus rhythm S1 is of normal intensity with the other findings remaining the same. There was no rub. ABDOMEN: Soft bowel sounds well heard. There is no hepatospleno megaly. Bowel sounds well heard. EXTREMITY is: Femorals are diminished. There is no femoral bruits. Leg pulses are diminished. There is no pedal edema. There is no DVT escalators. There is no calf tenderness. 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 PSYCHIATRIC: The patient judgment insight are intact his affect is normal.His judgement is intact. The patient's 24-hour intake is 1540 mL. His total output is 600 mL. Chest X-Ray 05/28/19 12:42 IMPRESSION: CARDIOMEGALY. CHRONIC INTERSTITIAL PROMINENCE. NO APPARENT ACUTE FINDINGS. Abdomen Ultrasound 05/28/19 12:52 IMPRESSION: 1. Fatty liver. 2. Ascites. 3. Pleural effusions. 4. No acute gallbladder disease suspected. Chest X-Ray 05/31/19 00:00 IMPRESSION: Persistent small pleural effusions right greater than left. This is increased since prior study. Chest X-Ray 06/02/19 00:00 IMPRESSION: Tip of the central line in the cavoatrial junction IMPRESSION/RECOMMENDATION: 1. Borderline elevation of troponin high levels. No evidence of non-ST elevation AR. Borderline elevation of troponin I secondary to patient's acute infection, cardiomyopathy and acute exacerbation of COPD. Would not treat this as a non-ST elevation AR. We will treat the underlying cause. 2. Acute exacerbation of COPD: Much improved. Continue anti-COPD medication. 3. Acute on chronic systolic heart failure: In view of the bilateral pleural e ffusions. Will continue the patient's IV Lasix. Continue patient beta-arelis and JESSICA inhibitor in view of the patient's ongoing symptoms of shortness of breath and heart failure we will start the patient on dobutamine at 2.5 mcg/kg/min. In view of the patient's prior history of proximal atrial fibrillation we will start the patient prophylactically on amiodarone drip without bolus. This is to prevent recurrence of atrial fibrillation.. We will recheck the patient's echocardiogram in the morning. 4. Possible pneumonia: Continue antibiotics. 5. History of hypertension: At present blood pressure well controlled 6. History of coronary artery disease. Prior history of stent placement and prior history of AR. No definite anginal symptoms. Continue Toprol-XL. Continue aspirin 7. 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 Will increase Toprol-XL. And later recommend increasing as tolerated. Continue digoxin.. Continue Lasix. Will increase the patient's dobutamine to 5 mcg/kg/min.. 8. History of paroxysmal atrial fibrillation: No recent recurrence. Continue Eliquis. 9. Tobacco abuse disorder: Tobacco cessation counseling given 3 minutes spent on this. 10. Possible depression: Continue anti-psychiatric medication. 11. Hyperlipidemia: Continue statin. Will be cautious in monitoring the patient liver function test. 12. Abnormal liver function test. We will recheck labs in the a.m. Medications reviewed. Medications adjusted. Medical decision making is of high complexity. Discussed the management plan and medical regimen with the attending provider on the case. 45 minutes spent on this patient more than 50% time spent in direct patient care. Will follow.
[2019-06-03] MEDS: LEVOFLOXACIN 500 MG TABLET PO SCH (17:32)
[2019-06-03] MEDS: NICOTINE 14 MG/24 HR PATCH.TD24 TD SCH (17:33)
[2019-06-03] MEDS: OXYCODONE-ACETAMINOPHEN 5-325 MG TABLET PO PRN (17:54)
--- NOTE | 2019-06-03 21:57 | Left Against Medical Advice ---
Against Medical Advice Admission Date/Time: 06/01/19 16:45 Primary Care Provider: Date of Patient Emigration: 06/03/19 - Diagnosis: (1) Acute bronchitis Is this a current diagnosis for this admission?: Yes (2) Acute kidney injury Is this a current diagnosis for this admission?: Yes (3) Acute respiratory failure with hypoxia Is this a current diagnosis for this admission?: Yes (4) Acute systolic heart failure Is this a current diagnosis for this admission?: Yes (5) Longstanding persistent atrial fibrillation Is this a current diagnosis for this admission?: Yes (6) Mitral regurgitation Is this a current diagnosis for this admission?: Yes (7) Multiple falls Is this a current diagnosis for this admission?: Yes (8) Noncompliance with medication regimen Is this a current diagnosis for this admission?: Yes (9) Nonspecific chest pain Is this a current diagnosis for this admission?: Yes (10) Tricuspid regurgitation Is this a current diagnosis for this admission?: Yes - Summary: Summary: Please see Admission and Progress Notes as well. TAMMY ABREU is a 73 M, who LEFT AGAINST MEDICAL ADVICE. The Patient was admitted on 06/01/19 16:45. 05/31/2019 The patient still has pleural effusions right greater than left. This is likely related to his heart failure. He is on diuretic therapy and heart failure is improved. No thoracentesis at this time. Low albumin is also a contributory factor. The patient likely has hypoalbuminemia secondary to poor intake and chronic illness. He did have hypokalemia likely a result of the diuresis. I have started potassium therapy. His transaminases were up today. There is no obvious offending agent. He does have steatohepatitis. I have ordered a lipid panel. Longstanding persistent atrial fibrillation. Is in sinus rhythm with multiple PVCs. Rate is adequately controlled. Acute kidney injury and acute respiratory failure with hypoxia have resolved. 06/01/2019 The patient was quite somnolent today and was tired yesterday. I believe it is related to the Seroquel and temazepam. I decreased the Seroquel to 200 mg at bedtime and decrease the temazepam to 7.5 mg at bedtime if needed. Another reason for the somnolence could be the severely depressed ejection fraction (less than 15%) with severe mitral regurgitation, severe tricuspid regurgitation and severe pulmonary hypertension. The systolic heart failure is clearly related to the depressed ejection fr action. Heart failure likely contributed to the acute respiratory failure. We continue to maintain good rate control of the atrial fibrillation with the current medication regimen and the patient is anticoagulated. We will continue to monitor on telemetry. Acute kidney injury-the BUN and creatinine had improved but are slightly elevated again today due to diuresis. I have decreased the furosemide by half and he will be on 20 mg by IV once daily. We will continue to monitor his potassium levels and treat any hypokalemia. Serum potassium is back in the normal range. The steatohepatitis is likely responsible for the elevated transaminases however the severely depressed ejection fraction could also be causing some passive congestion. We will continue to monitor the liver enzymes. The patient is on statin therapy but this may not have significant effect on the fatty liver. The patient has the bilateral pleural effusions and it is clear from the echocardiogram results that these are likely cardiogenic. We will continue the diuretic therapy at the reduced dose as noted above. Dr. Raymundo is continuing to see the patient as well. With the severity of the heart disease I have ordered a palliative care consult. 06/02/2019 The patient is more awake. Cutting back on the Seroquel and temazepam seems to have helped. The echocardiogram results are available. His ejection fraction is in the 20 to 25% range. He has severe mitral and tricuspid regurgitation as well as pulmonary hypertension. Dr. Raymundo wishes to try dobutamine. He has asked for a central line. The patient may need amiodarone if the dobutamine triggers his fibrillation. He remains on telemetry. The patient's electrolytes are currently normal and we will continue to monitor those. His BUN and creatinine are up slightly higher than yesterday however I did decrease the furosemide and I expect that they will begin to normalize tomorrow. His liver enzymes continue to improve. No specific therapy for fatty liver at this time. Because the patient will be getting dobutamine I did explain to the patient the discussion we were having about short-term skilled rehab is currently on hold. I did explain that because of his unsteady gait and falls in the past that he would benefit from more aggressive physical therapy prior to returning home. He will have several days to think about this. The remainder of the treatments for his associated comorbidities will be unchanged. Continued monitoring of vital signs, intake and output and telemetry monitoring. 06/03/2019 The patient is resting in the chair. He is on dobutamine and amiodarone. He appears to be tolerating the medication without difficulty. He did have a central line placed in the right subclavian artery. He is having some right shoulder pain. This is new since placement of the line and may be related indirectly with some referred pain. I cannot adequately appreciate the right shoulder on x-ray. We will utilize mild analgesia and supportive care. If it continues then we will obtain a dedicated shoulder film. I would expect that there would be arthritis. He may benefit from increased activity. I have ordered blood work for tomorrow to continue to monitor his elevated transaminases and slightly elevated BUN and creatinine. Physical therapy will continue to work with the patient. The patient still has the right-sided pleural effusion but he appears to be stable at this time and so no acute intervention is warranted.
[2019-06-03 23:53] VITALS: BP 129/80
== END 2019-06-03 22:23 | disposition left against medical advice (07) | DRG 291 ==
LOC: ER 11:22 → INTOOBSV 14:37 → EH 14:37 → 3N 16:02 → OBSVTOIN 06-01 16:45
PROVIDERS: ADMIT Internal Medicine; ATTEND Internal Medicine
PROC: 02H633Z Insertion of Infusion Device into Right Atrium, Percutaneous Approach (ICD-10-PCS; principal; 2019-06-02)
DX: I11.0 Hypertensive heart disease with heart failure (principal); J96.01 Acute respiratory failure with hypoxia; N17.9 Acute kidney failure, unspecified; I48.11 Longstanding persistent atrial fibrillation; J44.0 Chronic obstructive pulmonary disease with (acute) lower respiratory infection; J44.1 Chronic obstructive pulmonary disease with (acute) exacerbation; J20.9 Acute bronchitis, unspecified; R29.6 Repeated falls; I08.1 Rheumatic disorders of both mitral and tricuspid valves; E87.6 Hypokalemia; I25.10 Atherosclerotic heart disease of native coronary artery without angina pectoris; R07.89 Other chest pain; I42.0 Dilated cardiomyopathy; I25.5 Ischemic cardiomyopathy; F32.9 Major depressive disorder, single episode, unspecified; E78.5 Hyperlipidemia, unspecified; I50.23 Acute on chronic systolic (congestive) heart failure; I48.0 Paroxysmal atrial fibrillation; F17.210 Nicotine dependence, cigarettes, uncomplicated; I87.2 Venous insufficiency (chronic) (peripheral); I49.3 Ventricular premature depolarization; I49.8 Other specified cardiac arrhythmias; E78.00 Pure hypercholesterolemia, unspecified; K75.81 Nonalcoholic steatohepatitis (NASH); Z66 Do not resuscitate; Z96.652 Presence of left artificial knee joint; Z91.14 Patient's other noncompliance with medication regimen; Z79.899 Other long term (current) drug therapy; Z95.5 Presence of coronary angioplasty implant and graft; Z79.01 Long term (current) use of anticoagulants
CPT/HCPCS: 36415; 71045; 71046; 76705; 80048; 80053; 80061; 80162; 83690; 83735; 83880; 84484; 85025; 87804; 93005; 93010; 93306; 94640; 96374; 99285; C1751; G0378; J0282; J1100; J1250; J1642; J1940; J2250; J2405; J2704; J3010; J3490; J7060; J7620